=== PATIENT | female | born 1960 | race Caucasian/White ===

== ENCOUNTER → 2018-11-29 | Outpatient (CLI) | payer OTHER ==
--- NOTE | 2018-11-29 13:26 | KCIC ---
CHEST PA LATERAL History: Shortness of breath, cough Comparison: None. Findings: The cardiomediastinal silhouette is normal. Pulmonary vasculature is normal. The lungs are clear. No pleural effusion or pneumothorax is seen. There is no acute bone abnormality. Mild thickening of the minor fissure is present and nonspecific. Borderline pulmonary hyperinflation is present. IMPRESSION: No acute cardiopulmonary process. Electronically signed by: Mark Dillon MD (11/29/2018 1:23 PM) [facility]
== END | disposition home or self-care (01) ==
LOC: KCIC 12:35
PROVIDERS: ATTEND Internal Medicine Pulmonary Disease
DX: J44.9 Chronic obstructive pulmonary disease, unspecified (principal); J94.8 Other specified pleural conditions; J98.4 Other disorders of lung
CPT/HCPCS: 71046

== ENCOUNTER → 2018-12-18 | Outpatient (CLI) | payer MEDICARE, OTHER ==
[~2018-12-18] MED LIST: ALBU2.5V8 PO; AZIT250T6 PO; BACL10TA PO; CEFD300C PO; CETI10TA16 PO; DIAZ5TAB4 PO; FLUO40CA2 PO; FLUT16SP NS; FLUT1BLS10 INH; GABA600T7 PO; HYDR-52 PO; IPRA3AMP29 NEB; LACT1CAP19 PO; MIRT7.5T8 PO; PRED-220 PO; RANI150T2 PO; TIZA4TAB2 PO
--- NOTE | 2018-12-18 16:48 | KCIC ---
PQRS Compliance statement: One or more of the following individualized dose reduction techniques were utilized for this examination: 1. Automated exposure control. 2. Adjustment of the mA and/or kV according to patient size. 3. Use of iterative reconstruction technique. Indication:Smoker. Lung cancer screening. TECHNIQUE: Low-dose CT chest without IV contrast with multiplanar reformats. COMPARISON:None FINDINGS: Heart is normal in size. No pericardial or pleural effusion. No enlarged axillary, mediastinal adenopathy. Evaluation of hilar lymphadenopathy is limited due to lack of IV contrast. Mild diffuse emphysema. Scarring is seen along the right minor fissure. No pulmonary nodules. Visualized noncontrast sections through the liver, spleen, pancreas, adrenals and kidneys within normal limits. No suspicious bony lesion. Stable mild compression deformity of the midthoracic vertebral body. IMPRESSION: No pulmonary nodules. Lung RADS category 1: Negative. Continue low-dose CT chest screening. Mild emphysema. Electronically signed by: Srinivas Fuentes DO (12/18/2018 4:46 PM) [facility]
== END | disposition home or self-care (01) ==
LOC: KCIC CT 09:53
PROVIDERS: ATTEND Internal Medicine Pulmonary Disease
DX: Z12.2 Encounter for screening for malignant neoplasm of respiratory organs (principal); J43.9 Emphysema, unspecified; J98.4 Other disorders of lung; M43.8X4 Other specified deforming dorsopathies, thoracic region; F17.210 Nicotine dependence, cigarettes, uncomplicated
CPT/HCPCS: G0297

== ENCOUNTER 2018-12-31 00:26 | Inpatient (IN) | payer MEDICARE, OTHER ==
[~2018-12-31] VITALS: Ht 157.5 cm; Wt 68.9 kg
--- NOTE | 2018-12-31 00:52 | PHYS DOC ---
Adult General Chief Complaint Chief Complaint: SHORTNESS OF BREATH HPI HPI Patient is a 58 year old female with history of COPD on 3 L home oxygen with current smoking who presents via EMS with complaining of shortness of breath and cough. Patient complaining of increasing chronic shortness of breath for the last 3 days associated with productive cough with yellow sputum without fever and chills, chest pain, nausea and vomiting, sick contact. EMS reported that patient had O2 sat of low 70s at her home oxygen improved to 95 with starting CPAP. Patient had O2 sat of 98% at arrival to ER on CPAP. Review of Systems Review of Systems Constitutional: Denies fever or chills [] Eyes: Denies change in visual acuity, redness, or eye pain [] HENT: Denies nasal congestion or sore throat [] Respiratory: Reports cough and shortness of breath Cardiovascular: No additional information not addressed in HPI [] GI: Denies abdominal pain, nausea, vomiting, bloody stools or diarrhea [] : Denies dysuria or hematuria [] Musculoskeletal: Denies back pain or joint pain [] Integument: Denies rash or skin lesions [] Neurologic: Denies headache, focal weakness or sensory changes [] Endocrine: Denies polyuria or polydipsia [] All other systems were reviewed and found to be within normal limits, except as documented in this note. Current Medications Current Medications Physical Exam Physical Exam Constitutional: Well developed, well nourished, moderate distress, non-toxic appearance. [] HENT: Normocephalic, atraumatic. Eyes: PERRLA, EOMI, conjunctiva normal, no discharge. [] Neck: Normal range of motion, no tenderness, supple, no stridor. [] Cardiovascular:Heart rate regular rhythm, no murmur [] Lungs & Thorax: Acute respiratory distress with intercostal retraction or dyspnea, decrease of air movement Abdomen: Bowel sounds normal, soft, no tenderness, no masses, no pulsatile masses. [] Skin: Warm, dry, no erythema, no rash. [] Back: No tenderness, no CVA tenderness. [] Extremities: No tenderness, no cyanosis, no clubbing, ROM intact, no edema. [] Neurologic: Alert and oriented X 3, no focal deficits noted. [] Psychologic: Affect anxious, judgement normal, mood normal. [] Current Patient Data Lab Values Laboratory Tests Test 12/31/18 00:50 White Blood Count 17.7 x10^3/uL (4.0-11.0) H Red Blood Count 3.53 x10^6/uL (3.50-5.40) Hemoglobin 10.3 g/dL (12.0-15.5) L Hematocrit 31.9 % (36.0-47.0) L Mean Corpuscular Volume 91 fL (79-100) Mean Corpuscular Hemoglobin 29 pg (25-35) Mean Corpuscular Hemoglobin Concent 32 g/dL (31-37) Red Cell Distribution Width 14.3 % (11.5-14.5) Platelet Count 304 x10^3/uL (140-400) Neutrophils (%) (Auto) 82 % (31-73) H Lymphocytes (%) (Auto) 10 % (24-48) L Monocytes (%) (Auto) 6 % (0-9) Eosinophils (%) (Auto) 1 % (0-3) Basophils (%) (Auto) 1 % (0-3) Neutrophils # (Auto) 14.6 x10^3/uL (1.8-7.7) H Lymphocytes # (Auto) 1.8 x10^3/uL (1.0-4.8) Monocytes # (Auto) 1.0 x10^3/uL (0.0-1.1) Eosinophils # (Auto) 0.2 x10^3/uL (0.0-0.7) Basophils # (Auto) 0.2 x10^3/uL (0.0-0.2) Platelet Estimate Pending Sodium Level 140 mmol/L (136-145) Potassium Level 3.7 mmol/L (3.5-5.1) Chloride Level 102 mmol/L (98-107) Carbon Dioxide Level 35 mmol/L (21-32) H Anion Gap 3 (6-14) L Blood Urea Nitrogen 8 mg/dL (7-20) Creatinine 0.6 mg/dL (0.6-1.0) Estimated GFR (Cockcroft-Gault) 102.7 BUN/Creatinine Ratio 13 (6-20) Glucose Level 120 mg/dL (70-99) H Lactic Acid Level 0.7 mmol/L (0.4-2.0) Calcium Level 8.7 mg/dL (8.5-10.1) Magnesium Level 1.6 mg/dL (1.8-2.4) L Total Bilirubin 0.3 mg/dL (0.2-1.0) Aspartate Amino Transferase (AST) 21 U/L (15-37) Alanine Aminotransferase (ALT) 26 U/L (14-59) Alkaline Phosphatase 63 U/L (46-116) Creatine Kinase 55 U/L (26-192) Troponin I Quantitative < 0.017 ng/mL (0.000-0.055) CA-Orq-M-Type Natriuretic Peptide 3346 pg/mL (0-124) H Total Protein 6.3 g/dL (6.4-8.2) L Albumin 3.0 g/dL (3.4-5.0) L Albumin/Globulin Ratio 0.9 (1.0-1.7) L Laboratory Tests 12/31/18 00:50 Laboratory Tests 12/31/18 00:50 EKG EKG EKG interpreted by me. EKG at 0054 showed normal sinus rhythm at rate of 78, right toro axis, prolonged QT at 420, poor R-wave progress in anteroseptal leads, no acute ST and T-wave elevation. Radiology/Procedures Radiology/Procedures [][address] [place] [address] IMAGING REPORT Signed PATIENT: CARIDAD CALLES ACCOUNT: [id number] : 1960 LOCATION: [address] [place] [address] AGE: 58 SEX: F EXAM STATUS: ADM IN ORD. PHYSICIAN: VERÓNICA RODRIGUEZ MD REASON: shortness of breath PROCEDURE: PORTABLE CHEST 1V EXAM: CHEST ONE VIEW. HISTORY: Shortness of breath. COMPARISON: 11/21/2018. FINDINGS: A frontal view of the chest is obtained. Hyperinflation is consistent with chronic obstructive pulmonary disease. Linear opacities in the bases indicate atelectasis or mild pulmonary edema. There is no pneumothorax or pleural effusion. The heart is not enlarged. IMPRESSION: 1. Chronic obstructive pulmonary disease. Basilar atelectasis versus mild pulmonary edema. Electronically signed by: Gabi Basurto MD (12/31/2018 2:06 AM) [place] [id number] DICTATED and SIGNED BY: HARESH BASURTO MD DATE: 12/31/18 0206 Course & Med Decision Making Course & Med Decision Making Pertinent Labs and Imaging studies reviewed. (See chart for details) Evaluation of patient in ER showed 58-year-old female patient with history of COPD on home oxygen brought in by EMS respiratory distress and hypertension at 80s that improved with IV fluid. Patient was on CPAP with O2 sat of more than 98% and was changed to 3 L of nasal cannula with stable O2 sat more than 95%. Chest x-ray did not show infiltration. Patient had elevation of white count without elevation of lactic acid.Patient requiring admission for further evaluation and treatment. Discussed with Dr. Fuentes who is in agreement with admission. Discussed findings and plan with patient and family, who acknowledge understanding and agreement. Dragon Disclaimer Dragon Disclaimer This electronic medical record was generated, in whole or in part, using a voice recognition dictation system. Departure Departure Impression: Primary Impression: Acute respiratory distress Additional Impressions: COPD exacerbation Hypoxia Tobacco abuse Anemia Hypomagnesemia CHF (congestive heart failure) Hypotension Disposition: ADMITTED INPATIENT (at 0208) Admitting Physician: Elva Fuentes (accepted admission at 0207) Condition: IMPROVED Referrals: NO PCP (PCP) Critical Care Time Critical care time was 70 minutes exclusive of procedures. Problem Qualifiers Additional Impressions: Anemia Anemia type: unspecified type Qualified Codes: D64.9 - Anemia, unspecified CHF (congestive heart failure) Heart failure type: unspecified Heart failure chronicity: unspecified Qualified Codes: I50.9 - Heart failure, unspecified Hypotension Hypotension type: unspecified hypotension type Qualified Codes: I95.9 - Hypotension, unspecified VERÓNICA RODRIGUEZ MD Dec 31, 2018 00:52
[2018-12-31 01:01] LABS: BASO # 0.2 x10^3/uL (0.0-0.2); BASO % 1 % (0-3); EOS # 0.2 x10^3/uL (0.0-0.7); EOS % 1 % (0-3); HEMATOCRIT 31.9 % (36.0-47.0); HEMOGLOBIN 10.3 g/dL (12.0-15.5); LYMPH # 1.8 x10^3/uL (1.0-4.8); LYMPH % 10 % (24-48); MEAN CORPUSCULAR HEMOGLOBIN 29 pg (25-35); MEAN CORPUSCULAR HGB CONC 32 g/dL (31-37); MEAN CORPUSCULAR VOLUME 91 fL (79-100); MONO % 6 % (0-9); NEUT # 14.6 x10^3/uL (1.8-7.7); NEUT % 82 % (31-73); PLATELET COUNT 304 x10^3/uL (140-400); RED BLOOD COUNT 3.53 x10^6/uL (3.50-5.40); RED CELL DISTRIBUTION WIDTH 14.3 % (11.5-14.5); WHITE BLOOD COUNT 17.7 x10^3/uL (4.0-11.0)
[2018-12-31 01:21] LABS: CALCIUM 8.7 mg/dL (8.5-10.1); CREATININE 0.6 mg/dL (0.6-1.0); GFR 102.7; POTASSIUM 3.7 mmol/L (3.5-5.1)
[2018-12-31 01:27] LABS: ALBUMIN/GLOBULIN RATIO 0.9 (1.0-1.7); MAGNESIUM 1.6 mg/dL (1.8-2.4); TOTAL BILIRUBIN 0.3 mg/dL (0.2-1.0); TOTAL PROTEIN 6.3 g/dL (6.4-8.2)
[2018-12-31] MEDS ORDERED: VANCOMYCIN 1GM IVPB FOR OMNI 250 ML IV ONE (01:30)
[2018-12-31] MEDS ORDERED: methylPREDNISolone SOD SUCC PF 125 MG/2 ML VIAL. IV ONE (01:30)
[2018-12-31] MEDS ORDERED: IV NORMAL SALINE 1000ML BAG 1,000 ML IV SCH (01:30)
[2018-12-31] MEDS ORDERED: IPRATRPIUM/ALBUTEROL 0.5/2.5MG 3 ML NEBU. NEB ONE (01:30)
[2018-12-31] MEDS ORDERED: PIPERACILLIN/TAZOBACTAM 3.375 GM in IV NORMAL SALINE 50ML 50 ML IV ONE (02:00)
[2018-12-31] MEDS ORDERED: IV NORMAL SALINE 1000ML BAG 1,000 ML IV ONE (02:00)
[2018-12-31] MEDS: MAGNESIUM OXIDE 400 MG TABLET PO SCH ×3 (02:01→10:31)
--- NOTE | 2018-12-31 02:09 | RAD ---
EXAM: CHEST ONE VIEW. HISTORY: Shortness of breath. COMPARISON: 11/21/2018. FINDINGS: A frontal view of the chest is obtained. Hyperinflation is consistent with chronic obstructive pulmonary disease. Linear opacities in the bases indicate atelectasis or mild pulmonary edema. There is no pneumothorax or pleural effusion. The heart is not enlarged. IMPRESSION: 1. Chronic obstructive pulmonary disease. Basilar atelectasis versus mild pulmonary edema. Electronically signed by: Gabi Basurto MD (12/31/2018 2:06 AM) [facility]
[2018-12-31 02:15] VITALS: BP 122/64
[2018-12-31] MEDS ORDERED: HYDR-52 PO (02:55)
[2018-12-31] MEDS ORDERED: TIZA4TAB2 PO (02:55)
[2018-12-31] MEDS ORDERED: RANI150T2 PO (02:55)
[2018-12-31] MEDS ORDERED: MIRT7.5T8 PO (02:55)
[2018-12-31] MEDS ORDERED: FLUO40CA2 PO (02:55)
[2018-12-31] MEDS ORDERED: CETI10TA16 PO (02:55)
[2018-12-31] MEDS ORDERED: GABA600T7 PO (02:55)
[2018-12-31] MEDS ORDERED: BACL10TA PO (02:55)
[2018-12-31] MEDS ORDERED: FLUT16SP NS (02:55)
[2018-12-31] MEDS ORDERED: AZIT250T6 PO (02:55)
[2018-12-31] MEDS ORDERED: DIAZ5TAB4 PO (02:55)
[2018-12-31] MEDS ORDERED: ALBU2.5V8 PO (02:55)
[2018-12-31 03:07] LABS: % BANDS 3 % (0-9); % EOS 1 % (0-5); % LYMPHS 10 % (24-48); % MONOS 4 % (0-10); % SEGS 82 % (35-66); PLT ESTIMATE ADEQUATE (ADEQUATE)
[2018-12-31] MEDS ORDERED: FLUT1BLS10 INH (03:18)
[2018-12-31] MEDS: IV NORMAL SALINE 1000ML BAG 1,000 ML IV SCH ×3 (03:34→21:18)
[2018-12-31 07:00] VITALS: BP 143/83
[2018-12-31] MEDS ORDERED: tiZANidine 4 MG TABLET. PO PRN (09:00)
[2018-12-31] MEDS ORDERED: ACETAMINOPHEN 325 MG TABLET. PO PRN (09:00)
[2018-12-31] MEDS ORDERED: AZITHROMYCIN 250 MG TABLET. PO SCH (09:00)
[2018-12-31] MEDS ORDERED: NON FORMULARY ITEM (Baclofen 10 MG) PO PRN (09:00)
[2018-12-31] MEDS ORDERED: fentaNYL PF VIAL 100 MCG/2 ML VIAL IM ONE (10:15)
--- NOTE | 2018-12-31 10:21 | PDOC ---
Provider Note Provider Note dictated a/c resp fail ae of copd acute bronchitis see orders STEFAN MOURA MD Dec 31, 2018 10:20
[2018-12-31] MEDS: FLUTICASONE 50MCG/NASAL SPRAY 16GM BOTTLE. NS SCH (10:26)
[2018-12-31] MEDS: FLUoxetine HCL 20 MG CAPSULE PO SCH (10:27)
[2018-12-31] MEDS: methylPREDNISolone SOD SUCC PF 40 MG/ML VIAL. IV SCH ×2 (10:30→15:02)
[2018-12-31] MEDS: HYDROcodone/APAP 10/325 1 TAB TABLET PO PRN ×2 (10:30→21:20)
[2018-12-31] MEDS: diazePAM 5 MG TABLET PO PRN ×2 (10:30→21:21)
[2018-12-31] MEDS: GABAPENTIN 300 MG CAPSULE. PO SCH ×3 (10:30→21:19)
[2018-12-31] MEDS: FAMOTIDINE 20 MG TABLET. PO SCH ×2 (10:31→21:21)
--- NOTE | 2018-12-31 10:50 | PDOC ---
Provider Note Provider Note Patient seen. History and Physical dictated. See dictation#[id number] REYNALDO ESPITIA MD Dec 31, 2018 10:50
[2018-12-31 11:00] VITALS: BP 135/77
--- NOTE | 2018-12-31 11:21 | CONS ---
DATE OF CONSULTATION: 12/31/2018 I was asked to see this 58-year-old lady for acute on chronic respiratory failure. HISTORY OF PRESENT ILLNESS: She does have history of [id number] smoking. Now, she smokes occasionally a few cigarettes per day. She is on oxygen 2 liters per minute via nasal cannula continuously. She has had increased cough, shortness of breath, yellow sputum production, fever, chills for the past few days. She has had wheezing and runny nose and postnasal drip. She denies gastroesophageal reflux symptoms. She denies chest pain. She was brought to the Emergency Room via [facility]. PAST MEDICAL HISTORY: COPD and chronic respiratory failure. She was seen by Dr. Brand recently. SOCIAL HISTORY: History of [id number] smoking. Continues to smoke a few cigarettes per day. ALLERGIES: No known drug allergies. MEDICATIONS: Currently, she is on Zyrtec, Remeron, Valium, azithromycin, Rocephin, Solu-Medrol 60 mg IV b.i.d., Pepcid, gabapentin, Prozac. FAMILY HISTORY: No history of lung disease in the family. REVIEW OF SYSTEMS: As mentioned above, other systems otherwise negative. PHYSICAL EXAMINATION: VITAL SIGNS: Her O2 saturation on 2 liters of oxygen is 98%, respiratory rate 16, heart rate 97, blood pressure 143/83, temperature 97.6. HEENT: Normocephalic, atraumatic. Pupils equal, round, reactive to light. Throat is clear. Nose is clear. NECK: There is no JVD, lymphadenopathy or thyromegaly. CARDIOVASCULAR: Regular rate and rhythm. PMI is nondisplaced. CHEST: Inspection is normal. LUNGS: End expiratory wheezing. Percussion is within normal limit. ABDOMEN: Soft. Bowel sounds are good. There is no mass. EXTREMITIES: There is no edema. LYMPHATICS: There is no lymphadenopathy. NEUROLOGIC: Alert and oriented. SKIN: Chronic changes. I reviewed the following lab data: Chest x-ray does not show infiltrate. WBC 17.7, hemoglobin 10.3, platelets 304. Sodium 140, potassium 3.7, chloride 102, CO2 of 35, glucose 120, BUN 8, creatinine 0.6. Troponin less than 0.017. BNP 3346. Lactic acid 0.7. IMPRESSION: 1. Acute on chronic respiratory failure, multifactorial in etiology, including acute exacerbation of chronic obstructive pulmonary disease, acute bronchitis versus others. 2. Acute exacerbation of chronic obstructive pulmonary disease. 3. Acute bronchitis. 4. Tobacco habituation. 5. Elevated BNP. PLAN AND RECOMMENDATIONS: 1. Titrate FiO2 to keep O2 saturation 92%. 2. Start bronchodilator. 3. Continue Solu-Medrol. 4. Continue Rocephin and azithromycin. 5. Continue Pulmicort. 6. I had a long discussion with her regarding smoking cessation. I have advised her to stop smoking forever. 7. Her BNP is elevated. I do recommend an echocardiogram. Thank you very much for allowing me to participate in care of this very nice lady. STEFAN MOURA M.D. : [place] JOB#: [id number] / [id number]
--- NOTE | 2018-12-31 11:21 | EKG ---
[facility] [address] [place] [address] Test Date: 2018-12-31 Test Time: 00:54:47 Pat Name: CARIDAD CALLES Department: Room: [facility] Gender: F [employer]: : 1960 Requested By: VERÓNICA RODRIGUEZ Order Number: [id number] Reading MD: Julio Brizuela MD Measurements Intervals [place] Rate: 78 P: 75 VA: 142 QRS: 98 QRSD: 96 T: 50 QT: 420 QTc: 482 Interpretive Statements SINUS RHYTHM MILD RIGHT AXIS Electronically Signed On 01-09-2019 10:28:04 CDT by Julio Brizuela MD
[2018-12-31 12:00] LABS: INFLUENZA A PATIENT NEGATIVE (NEGATIVE); INFLUENZA B PATIENT NEGATIVE (NEGATIVE)
[2018-12-31] MEDS: ALBUTEROL SULFATE 2.5 MG/3 ML NEBU. NEB SCH ×4 (12:00→21:17)
[2018-12-31] MEDS: BUDESONIDE 0.5 MG/2 ML NEBU. NEB SCH ×2 (12:05→20:25)
[2018-12-31] MEDS: cefTRIAXone IV Push 1 GM VIAL. IVP SCH (12:39)
[2018-12-31] MEDS: AZITHROMYCIN 500 MG in IV NORMAL SALINE 250ML 250 ML IV SCH (12:46)
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
[2018-12-31 15:00] VITALS: BP 109/52
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
[2018-12-31 19:36] VITALS: BP 122/55
[2018-12-31] MEDS: MIRTAZAPINE 7.5 MG TABLET. PO SCH (21:19)
[2018-12-31] MEDS: CETIRIZINE HCL 10 MG TABLET. PO SCH (21:21)
[2018-12-31 23:29] VITALS: BP 112/59
[2019-01-01] MEDS: HYDROcodone/APAP 10/325 1 TAB TABLET PO PRN ×3 (03:00→18:29)
[2019-01-01 03:28] VITALS: BP 101/44
[2019-01-01 04:15] LABS: BASO # 0.1 x10^3/uL (0.0-0.2); BASO % 1 % (0-3); EOS % 0 % (0-3); HEMATOCRIT 31.2 % (36.0-47.0); LYMPH # 0.7 x10^3/uL (1.0-4.8); LYMPH % 5 % (24-48); MEAN CORPUSCULAR HEMOGLOBIN 29 pg (25-35); MEAN CORPUSCULAR HGB CONC 32 g/dL (31-37); MEAN CORPUSCULAR VOLUME 90 fL (79-100); MONO # 0.7 x10^3/uL (0.0-1.1); MONO % 5 % (0-9); NEUT # 13.6 x10^3/uL (1.8-7.7); NEUT % 90 % (31-73); PLATELET COUNT 303 x10^3/uL (140-400); RED BLOOD COUNT 3.46 x10^6/uL (3.50-5.40); RED CELL DISTRIBUTION WIDTH 14.6 % (11.5-14.5); WHITE BLOOD COUNT 15.2 x10^3/uL (4.0-11.0)
[2019-01-01 04:41] LABS: ALBUMIN 2.5 g/dL (3.4-5.0); ALBUMIN/GLOBULIN RATIO 0.7 (1.0-1.7); CALCIUM 8.5 mg/dL (8.5-10.1); CREATININE 0.4 mg/dL (0.6-1.0); GFR 163.9; MAGNESIUM 1.9 mg/dL (1.8-2.4); POTASSIUM 4.3 mmol/L (3.5-5.1); TOTAL BILIRUBIN 0.2 mg/dL (0.2-1.0)
[2019-01-01 07:47] VITALS: BP 125/65
[2019-01-01] MEDS: ALBUTEROL SULFATE 2.5 MG/3 ML NEBU. NEB SCH ×3 (07:47→15:54)
[2019-01-01] MEDS: BUDESONIDE 0.5 MG/2 ML NEBU. NEB SCH ×2 (07:48→20:52)
[2019-01-01] MEDS: MAGNESIUM OXIDE 400 MG TABLET PO SCH (08:35)
[2019-01-01] MEDS: FAMOTIDINE 20 MG TABLET. PO SCH ×2 (08:35→21:06)
[2019-01-01] MEDS: FLUoxetine HCL 20 MG CAPSULE PO SCH (08:35)
[2019-01-01] MEDS: GABAPENTIN 300 MG CAPSULE. PO SCH ×3 (08:35→21:06)
[2019-01-01] MEDS: methylPREDNISolone SOD SUCC PF 40 MG/ML VIAL. IV SCH ×2 (08:36→15:23)
[2019-01-01] MEDS: FLUTICASONE 50MCG/NASAL SPRAY 16GM BOTTLE. NS SCH (08:36)
[2019-01-01] MEDS: AZITHROMYCIN 500 MG in IV NORMAL SALINE 250ML 250 ML IV SCH (08:37)
[2019-01-01] MEDS: cefTRIAXone IV Push 1 GM VIAL. IVP SCH (08:53)
--- NOTE | 2019-01-01 09:46 | PDOC ---
IM PROGRESS NOTES- Subjective Subjective Hasw cough,congestion,neck pain,bilateral hip pain. Objective Vitals/I&O Vital Signs Date Time Temp Pulse Resp B/P (MAP) Pulse Ox O2 Delivery O2 Flow Rate FiO2 01/01/19 07:49 97 Nasal Cannula 2.0 01/01/19 07:47 98.0 99 22 125/65 (85) 98.0 I & O 12/31/18 12/31/18 01/01/19 15:00 23:00 07:00 Intake Total 120 ml 390 ml 1240 ml Balance 120 ml 390 ml 1240 ml Physical Exam Physical Exam General appearance - alert,ill appearing, and in mild distress and oriented to person, place, and time Mental Status - alert, oriented to person, place, and time, affect appropriate to mood Head - normal Chest - few bilateral wheezes Heart - S1 and S2 normal Abdomen - soft, non tender Neurological - alert and oriented Musculoskeletal - joint pains Extremities - no pedal edema Skin - warm and dry Labs Laboratory Tests Test 12/31/18 11:00 01/01/19 03:15 Influenza Type A Antigen Negative (NEGATIVE) Influenza Type B Antigen Negative (NEGATIVE) White Blood Count 15.2 x10^3/uL (4.0-11.0) H Red Blood Count 3.46 x10^6/uL (3.50-5.40) L Hemoglobin 10.0 g/dL (12.0-15.5) L Hematocrit 31.2 % (36.0-47.0) L Mean Corpuscular Volume 90 fL (79-100) Mean Corpuscular Hemoglobin 29 pg (25-35) Mean Corpuscular Hemoglobin Concent 32 g/dL (31-37) Red Cell Distribution Width 14.6 % (11.5-14.5) H Platelet Count 303 x10^3/uL (140-400) Neutrophils (%) (Auto) 90 % (31-73) H Lymphocytes (%) (Auto) 5 % (24-48) L Monocytes (%) (Auto) 5 % (0-9) Eosinophils (%) (Auto) 0 % (0-3) Basophils (%) (Auto) 1 % (0-3) Neutrophils # (Auto) 13.6 x10^3/uL (1.8-7.7) H Lymphocytes # (Auto) 0.7 x10^3/uL (1.0-4.8) L Monocytes # (Auto) 0.7 x10^3/uL (0.0-1.1) Eosinophils # (Auto) 0.0 x10^3/uL (0.0-0.7) Basophils # (Auto) 0.1 x10^3/uL (0.0-0.2) Sodium Level 141 mmol/L (136-145) Potassium Level 4.3 mmol/L (3.5-5.1) Chloride Level 106 mmol/L (98-107) Carbon Dioxide Level 34 mmol/L (21-32) H Anion Gap 1 (6-14) L Blood Urea Nitrogen 9 mg/dL (7-20) Creatinine 0.4 mg/dL (0.6-1.0) L Estimated GFR (Cockcroft-Gault) 163.9 BUN/Creatinine Ratio 23 (6-20) H Glucose Level 116 mg/dL (70-99) H Calcium Level 8.5 mg/dL (8.5-10.1) Magnesium Level 1.9 mg/dL (1.8-2.4) Total Bilirubin 0.2 mg/dL (0.2-1.0) Aspartate Amino Transferase (AST) 18 U/L (15-37) Alanine Aminotransferase (ALT) 22 U/L (14-59) Alkaline Phosphatase 58 U/L (46-116) Troponin I Quantitative < 0.017 ng/mL (0.000-0.055) Total Protein 6.0 g/dL (6.4-8.2) L Albumin 2.5 g/dL (3.4-5.0) L Albumin/Globulin Ratio 0.7 (1.0-1.7) L Laboratory Tests 01/01/19 03:15 Laboratory Tests 01/01/19 03:15 Meds Current Medications Medications (Trade) Dose Ordered Sig/Jorge Luis Route PRN Reason Start Time Stop Time Status Last Admin Dose Admin Cetirizine HCl (ZyrTEC) 10 mg HS PO 12/31/18 21:00 12/31/18 21:21 Mirtazapine (Remeron) 7.5 mg QHS PO 12/31/18 21:00 12/31/18 21:19 Budesonide (Pulmicort) 0.5 mg RTBID NEB 12/31/18 10:00 01/01/19 07:48 Ceftriaxone Sodium (Rocephin) 1 gm Q24H IVP 12/31/18 10:00 01/01/19 08:53 Azithromycin 500 mg/Sodium Chloride 250 ml @ 250 mls/hr DAILY IV 12/31/18 10:00 01/01/19 08:37 Diazepam (Valium) 5 mg PRN BID PRN PO ANXIETY / AGITATION 12/31/18 10:00 12/31/18 21:21 Fentanyl Citrate (Fentanyl 2ml Vial) 50 mcg 1X ONCE IM 12/31/18 10:15 12/31/18 10:16 DC 12/31/18 10:34 Assessment Assessment 1. Acute exacerbation of chronic obstructive pulmonary disease. 2. Acute bronchitis. 3. Acute hypotension. 4. Acute on chronic hypoxic respiratory failure. 5. Anemia. 6. Possible congestive heart failure with elevated BNP. 7. Anxiety. 8. Depression. 9. Chronic pain. 10. History of neck surgery and right hip surgery. PLAN: Consult Dr. Mercer for pulmonary evaluation and management and Dr. Costa for cardiology evaluation and management. She will need echocardiogram. I will start her on IV Solu-Medrol, start her on IV Rocephin and Zithromax. Continue breathing treatment. Her blood pressure is stable, so I will not add more fluids, but I will also not give her any diuretic at this time. Continue home medications. She is complaining a lot of pain. Discussed with staff. For details, please refer to the orders. Acute bronchitis- Influenza screen negative Anxiety Plan Plan For more details regarding further plans, please refer to the orders. REYNALDO ESPITIA MD Jan 01, 2019 09:46
[2019-01-01 11:30] VITALS: BP 149/86
[2019-01-01] MEDS: diazePAM 5 MG TABLET PO PRN (11:52)
--- NOTE | 2019-01-01 13:11 | PDOC ---
PULMONARY PROGRESS NOTES Subjective still dc Vitals Vital Signs Date Time Temp Pulse Resp B/P (MAP) Pulse Ox O2 Delivery O2 Flow Rate FiO2 01/01/19 11:33 96 Nasal Cannula 2.0 01/01/19 11:30 99.0 89 18 149/86 (107) 99.0 General: Alert, No acute distress Lungs: Crackles (bases) Cardiovascular: S1 Abdomen: Soft, Other (obese) Neuro Exam: Alert Extremities: No Edema Skin: Warm Labs Laboratory Tests Test 12/31/18 00:50 12/31/18 11:00 01/01/19 03:15 White Blood Count 17.7 x10^3/uL (4.0-11.0) 15.2 x10^3/uL (4.0-11.0) Red Blood Count 3.53 x10^6/uL (3.50-5.40) 3.46 x10^6/uL (3.50-5.40) Hemoglobin 10.3 g/dL (12.0-15.5) 10.0 g/dL (12.0-15.5) Hematocrit 31.9 % (36.0-47.0) 31.2 % (36.0-47.0) Mean Corpuscular Volume 91 fL (79-100) 90 fL (79-100) Mean Corpuscular Hemoglobin 29 pg (25-35) 29 pg (25-35) Mean Corpuscular Hemoglobin Concent 32 g/dL (31-37) 32 g/dL (31-37) Red Cell Distribution Width 14.3 % (11.5-14.5) 14.6 % (11.5-14.5) Platelet Count 304 x10^3/uL (140-400) 303 x10^3/uL (140-400) Neutrophils (%) (Auto) 82 % (31-73) 90 % (31-73) Lymphocytes (%) (Auto) 10 % (24-48) 5 % (24-48) Monocytes (%) (Auto) 6 % (0-9) 5 % (0-9) Eosinophils (%) (Auto) 1 % (0-3) 0 % (0-3) Basophils (%) (Auto) 1 % (0-3) 1 % (0-3) Neutrophils # (Auto) 14.6 x10^3/uL (1.8-7.7) 13.6 x10^3/uL (1.8-7.7) Lymphocytes # (Auto) 1.8 x10^3/uL (1.0-4.8) 0.7 x10^3/uL (1.0-4.8) Monocytes # (Auto) 1.0 x10^3/uL (0.0-1.1) 0.7 x10^3/uL (0.0-1.1) Eosinophils # (Auto) 0.2 x10^3/uL (0.0-0.7) 0.0 x10^3/uL (0.0-0.7) Basophils # (Auto) 0.2 x10^3/uL (0.0-0.2) 0.1 x10^3/uL (0.0-0.2) Segmented Neutrophils % 82 % (35-66) Band Neutrophils % 3 % (0-9) Lymphocytes % 10 % (24-48) Monocytes % 4 % (0-10) Eosinophils % 1 % (0-5) Platelet Estimate Adequate (ADEQUATE) Sodium Level 140 mmol/L (136-145) 141 mmol/L (136-145) Potassium Level 3.7 mmol/L (3.5-5.1) 4.3 mmol/L (3.5-5.1) Chloride Level 102 mmol/L (98-107) 106 mmol/L (98-107) Carbon Dioxide Level 35 mmol/L (21-32) 34 mmol/L (21-32) Anion Gap 3 (6-14) 1 (6-14) Blood Urea Nitrogen 8 mg/dL (7-20) 9 mg/dL (7-20) Creatinine 0.6 mg/dL (0.6-1.0) 0.4 mg/dL (0.6-1.0) Estimated GFR (Cockcroft-Gault) 102.7 163.9 BUN/Creatinine Ratio 13 (6-20) 23 (6-20) Glucose Level 120 mg/dL (70-99) 116 mg/dL (70-99) Lactic Acid Level 0.7 mmol/L (0.4-2.0) Calcium Level 8.7 mg/dL (8.5-10.1) 8.5 mg/dL (8.5-10.1) Magnesium Level 1.6 mg/dL (1.8-2.4) 1.9 mg/dL (1.8-2.4) Total Bilirubin 0.3 mg/dL (0.2-1.0) 0.2 mg/dL (0.2-1.0) Aspartate Amino Transf (AST/SGOT) 21 U/L (15-37) 18 U/L (15-37) Alanine Aminotransferase (ALT/SGPT) 26 U/L (14-59) 22 U/L (14-59) Alkaline Phosphatase 63 U/L (46-116) 58 U/L (46-116) Creatine Kinase 55 U/L (26-192) Troponin I Quantitative < 0.017 ng/mL (0.000-0.055) < 0.017 ng/mL (0.000-0.055) IC-Jzq-D-Type Natriuretic Peptide 3346 pg/mL (0-124) Total Protein 6.3 g/dL (6.4-8.2) 6.0 g/dL (6.4-8.2) Albumin 3.0 g/dL (3.4-5.0) 2.5 g/dL (3.4-5.0) Albumin/Globulin Ratio 0.9 (1.0-1.7) 0.7 (1.0-1.7) Influenza Type A Antigen Negative (NEGATIVE) Influenza Type B Antigen Negative (NEGATIVE) Laboratory Tests Test 01/01/19 03:15 White Blood Count 15.2 x10^3/uL (4.0-11.0) Red Blood Count 3.46 x10^6/uL (3.50-5.40) Hemoglobin 10.0 g/dL (12.0-15.5) Hematocrit 31.2 % (36.0-47.0) Mean Corpuscular Volume 90 fL (79-100) Mean Corpuscular Hemoglobin 29 pg (25-35) Mean Corpuscular Hemoglobin Concent 32 g/dL (31-37) Red Cell Distribution Width 14.6 % (11.5-14.5) Platelet Count 303 x10^3/uL (140-400) Neutrophils (%) (Auto) 90 % (31-73) Lymphocytes (%) (Auto) 5 % (24-48) Monocytes (%) (Auto) 5 % (0-9) Eosinophils (%) (Auto) 0 % (0-3) Basophils (%) (Auto) 1 % (0-3) Neutrophils # (Auto) 13.6 x10^3/uL (1.8-7.7) Lymphocytes # (Auto) 0.7 x10^3/uL (1.0-4.8) Monocytes # (Auto) 0.7 x10^3/uL (0.0-1.1) Eosinophils # (Auto) 0.0 x10^3/uL (0.0-0.7) Basophils # (Auto) 0.1 x10^3/uL (0.0-0.2) Sodium Level 141 mmol/L (136-145) Potassium Level 4.3 mmol/L (3.5-5.1) Chloride Level 106 mmol/L (98-107) Carbon Dioxide Level 34 mmol/L (21-32) Anion Gap 1 (6-14) Blood Urea Nitrogen 9 mg/dL (7-20) Creatinine 0.4 mg/dL (0.6-1.0) Estimated GFR (Cockcroft-Gault) 163.9 BUN/Creatinine Ratio 23 (6-20) Glucose Level 116 mg/dL (70-99) Calcium Level 8.5 mg/dL (8.5-10.1) Magnesium Level 1.9 mg/dL (1.8-2.4) Total Bilirubin 0.2 mg/dL (0.2-1.0) Aspartate Amino Transf (AST/SGOT) 18 U/L (15-37) Alanine Aminotransferase (ALT/SGPT) 22 U/L (14-59) Alkaline Phosphatase 58 U/L (46-116) Troponin I Quantitative < 0.017 ng/mL (0.000-0.055) Total Protein 6.0 g/dL (6.4-8.2) Albumin 2.5 g/dL (3.4-5.0) Albumin/Globulin Ratio 0.7 (1.0-1.7) Medications Active Scripts Medications Dose Route/Sig Max Daily Dose Days Date Category [place] 500-50 [place] (Fluticasone Propion/Salmeterol) 1 Each Blst.w.dev 1 Inh INH BID 12/31/18 Reported Proair Hfa (Albuterol Sulfate) 8.5 Gm Hfa.aer.ad 2 Puff PO QID 12/31/18 Reported Diazepam 5 Mg Tablet 1 Tab PO BID PRN 12/31/18 Reported Azithromycin Tablet (Azithromycin) 250 Mg Tablet 1 Tab PO DAILY 12/31/18 Reported Fluoxetine Hcl 40 Mg Capsule 1 Tab PO DAILY 12/31/18 Reported Tizanidine Hcl 4 Mg Tablet 1 Tab PO TID PRN 12/31/18 Reported Cetirizine Hcl 10 Mg Tablet 1 Tab PO HS 12/31/18 Reported Mirtazapine 7.5 Mg Tablet 1 Tab PO DAILY 12/31/18 Reported Ranitidine Hcl 150 Mg Tablet 150 Mg PO BID 12/31/18 Reported Hydrocodone-Acetamin 10-325 mg (Hydrocodone/Acetaminophen) 1 Each Tablet 1 Tab PO Q6HRS 12/31/18 Reported Fluticasone Propionate Nasal [place] (Fluticasone Propionate) 16 Gm [place].susp 1 Puff NS DAILY 12/31/18 Reported Gabapentin 600 Mg Tablet 600 Mg PO TID 12/31/18 Reported Baclofen 10 Mg Tablet 10 Mg PO TID PRN 12/31/18 Reported Impression . 1. Acute on chronic respiratory failure, multifactorial in etiology, including acute exacerbation of chronic obstructive pulmonary disease, acute bronchitis versus , diastolic HF 2. Acute exacerbation of chronic obstructive pulmonary disease. 3. Acute bronchitis. 4. Tobacco habituation. 5. Elevated BNP./ abn cxr, suspect mild CHF Plan . PLAN AND RECOMMENDATIONS: 1. Titrate FiO2 to keep O2 saturation 92%. 2. bronchodilator. 3. Continue Solu-Medrol. 4. Continue Rocephin and azithromycin. 5. Continue Pulmicort. 6. I had a long discussion with her regarding smoking cessation. I have advised her to stop smoking forever. 7. Her BNP is elevated. DD on echocardiogram. will try lasix today SON MATHIS MD Jan 01, 2019 13:11
[2019-01-01] MEDS ORDERED: FUROSEMIDE 40 MG/4 ML VIAL. IVP ONE (13:15)
--- NOTE | 2019-01-01 13:40 | PDOC ---
CARDIO Progress Notes Date and Time Date of Service 01/01/19 Time of Evaluation 1310 Subjective Subjective: No Chest Pain, No Palpitations, No Dizziness, Other (breathing improved ) Vitals Vitals Vital Signs Date Time Temp Pulse Resp B/P (MAP) Pulse Ox O2 Delivery O2 Flow Rate FiO2 01/01/19 11:33 96 Nasal Cannula 2.0 01/01/19 11:30 99.0 89 18 149/86 (107) 99.0 Weight Weight [ ] Input and Output Intake and Output Intake and Output 01/01/19 07:00 Intake Total 1750 ml Balance 1750 ml Intake Oral 1750 ml # Voids 6 # Bowel Movements 3 Laboratory Labs Laboratory Tests Test 01/01/19 03:15 White Blood Count 15.2 x10^3/uL (4.0-11.0) Red Blood Count 3.46 x10^6/uL (3.50-5.40) Hemoglobin 10.0 g/dL (12.0-15.5) Hematocrit 31.2 % (36.0-47.0) Mean Corpuscular Volume 90 fL (79-100) Mean Corpuscular Hemoglobin 29 pg (25-35) Mean Corpuscular Hemoglobin Concent 32 g/dL (31-37) Red Cell Distribution Width 14.6 % (11.5-14.5) Platelet Count 303 x10^3/uL (140-400) Neutrophils (%) (Auto) 90 % (31-73) Lymphocytes (%) (Auto) 5 % (24-48) Monocytes (%) (Auto) 5 % (0-9) Eosinophils (%) (Auto) 0 % (0-3) Basophils (%) (Auto) 1 % (0-3) Neutrophils # (Auto) 13.6 x10^3/uL (1.8-7.7) Lymphocytes # (Auto) 0.7 x10^3/uL (1.0-4.8) Monocytes # (Auto) 0.7 x10^3/uL (0.0-1.1) Eosinophils # (Auto) 0.0 x10^3/uL (0.0-0.7) Basophils # (Auto) 0.1 x10^3/uL (0.0-0.2) Sodium Level 141 mmol/L (136-145) Potassium Level 4.3 mmol/L (3.5-5.1) Chloride Level 106 mmol/L (98-107) Carbon Dioxide Level 34 mmol/L (21-32) Anion Gap 1 (6-14) Blood Urea Nitrogen 9 mg/dL (7-20) Creatinine 0.4 mg/dL (0.6-1.0) Estimated GFR (Cockcroft-Gault) 163.9 BUN/Creatinine Ratio 23 (6-20) Glucose Level 116 mg/dL (70-99) Calcium Level 8.5 mg/dL (8.5-10.1) Magnesium Level 1.9 mg/dL (1.8-2.4) Total Bilirubin 0.2 mg/dL (0.2-1.0) Aspartate Amino Transf (AST/SGOT) 18 U/L (15-37) Alanine Aminotransferase (ALT/SGPT) 22 U/L (14-59) Alkaline Phosphatase 58 U/L (46-116) Troponin I Quantitative < 0.017 ng/mL (0.000-0.055) Total Protein 6.0 g/dL (6.4-8.2) Albumin 2.5 g/dL (3.4-5.0) Albumin/Globulin Ratio 0.7 (1.0-1.7) Microbiology Micro Microbiology 12/31/18 Blood Culture - Preliminary, Resulted NO GROWTH AFTER 1 DAY Physical Exam HEENT: Neck Supple W Full Motion Chest: Symmetric LUNGS: Other (diminished bases) Heart: S1S2, RRR Abdomen: Soft N/T Extremities: No Edema Neurology: alert, oriented, follow commands Assessment Assessment 1. Acute on chronic respiratory failure, multifactorial with AECOPD, acute CHF. O2 dependent 2. Mild acute diastolic HF; Echo showed preserved LV systolic function with an EF of 50-55% 3. Leukocytosis 4. Anxiety 5. Tobaccoism; discussed/encouraged cessation Recommendations Mild diuresis Lung optimization as per pulmonary Supportive care STEPHANIE ANN APRN Jan 01, 2019 13:40
[2019-01-01 15:00] VITALS: BP 126/78
[2019-01-01 19:35] VITALS: BP 128/62
[2019-01-01] MEDS: CETIRIZINE HCL 10 MG TABLET. PO SCH (21:06)
[2019-01-01] MEDS: MIRTAZAPINE 7.5 MG TABLET. PO SCH (21:06)
[2019-01-01] MEDS: LACTOBACILLUS RHAMNOSUS GG 1 CAPSULE. PO SCH (21:06)
[2019-01-01 23:41] VITALS: BP 118/56
[2019-01-02 03:16] VITALS: BP 140/64
[2019-01-02 05:06] LABS: CALCIUM 9.2 mg/dL (8.5-10.1); CREATININE 0.5 mg/dL (0.6-1.0); GFR 126.7; POTASSIUM 4.1 mmol/L (3.5-5.1)
[2019-01-02 05:09] LABS: CHOLESTEROL/HDL RATIO 2.3
[2019-01-02] MEDS: ALBUTEROL SULFATE 2.5 MG/3 ML NEBU. NEB SCH ×4 (07:17→20:06)
[2019-01-02] MEDS: BUDESONIDE 0.5 MG/2 ML NEBU. NEB SCH ×2 (07:17→20:06)
[2019-01-02 07:40] VITALS: BP 143/71
[2019-01-02] MEDS: HYDROcodone/APAP 10/325 1 TAB TABLET PO PRN ×3 (08:33→21:29)
[2019-01-02] MEDS: GABAPENTIN 300 MG CAPSULE. PO SCH ×3 (08:34→20:02)
[2019-01-02] MEDS: FAMOTIDINE 20 MG TABLET. PO SCH ×2 (08:34→20:02)
[2019-01-02] MEDS: FLUoxetine HCL 20 MG CAPSULE PO SCH (08:35)
[2019-01-02] MEDS: FLUTICASONE 50MCG/NASAL SPRAY 16GM BOTTLE. NS SCH (08:35)
[2019-01-02] MEDS: ASPIRIN ENTERIC COATED 81 MG TABLET.DR. PO SCH (08:35)
[2019-01-02] MEDS: LACTOBACILLUS RHAMNOSUS GG 1 CAPSULE. PO SCH ×2 (08:35→20:02)
[2019-01-02] MEDS: MAGNESIUM OXIDE 400 MG TABLET PO SCH (08:35)
[2019-01-02] MEDS: AZITHROMYCIN 500 MG in IV NORMAL SALINE 250ML 250 ML IV SCH (08:36)
[2019-01-02] MEDS: methylPREDNISolone SOD SUCC PF 40 MG/ML VIAL. IV SCH (08:36)
[2019-01-02] MEDS ORDERED: FLU VAX QS 2019-20 (36MOS+)/PF 0.5 ML SYRINGE. VAX IM ONE (09:00)
--- NOTE | 2019-01-02 09:20 | CARD ---
MR#: [id number] Date of Study: 01/01/2019 Ordering Physician: ЕЛЕНА CHANG, Referring Physician: ЕЛЕНА CHANG, Tech: Liza Waldron ELI APPROVED REPORT EXAM: Two-dimensional and M-mode echocardiogram with Doppler and color Doppler. Other Information Quality : Good INDICATION Congestive Heart Failure 2D DIMENSIONS RVDd2.3 (2.9-3.5cm)Left Atrium(2D)3.3 (1.6-4.0cm) IVSd0.7 (0.7-1.1cm)Aortic Root(2D)2.7 (2.0-3.7cm) LVDd5.4 (3.9-5.9cm)LVOT Diameter2.1 (1.8-2.4cm) PWd0.7 (0.7-1.1cm)LVDs4.1 (2.5-4.0cm) FS (%) 24.8 %SV69.0 ml LVEF(%)50.0 (>50%) Aortic Valve AoV Peak Adan.142.0cm/sAoV VTI28.9cm AO Peak GR.8.1mmHgLVOT Peak Adan.110.4cm/s AO Mean GR.5mmHgAVA (VMAX)2.68cm2 NINA (VTI)2.80cm2 Mitral Valve MV E Fvtldlgt421.1cm/sMV DECEL ANRC459qx MV A Buzmgqpy741.9cm/sE/A Ratio0.8 Tricuspid Valve TR P. Cuvjiufp758ap/sRAP RCGFDKJI3rxHb TR Peak Gr.06vkNtZTFJ73mtPl Pulmonary Vein S1 Vynvgqjk22.0cm/sD2 Juhxsjsr39.1cm/s LEFT VENTRICLE The left ventricle is normal size. There is normal left ventricular wall thickness. Left ventricle sy stolic function is normal. The Ejection Fraction is 50-55%. There is normal LV segmental wall motion. Transmitral Doppler flow pattern is Grade I-abnormal relaxation pattern. RIGHT VENTRICLE The right ventricle is normal size. The right ventricular systolic function is normal. ATRIA The left atrium size is normal. The right atrium size is normal. The interatrial septum is intact wit h no evidence for an atrial septal defect or patent foramen ovale as noted on 2-D or Doppler imaging. AORTIC VALVE The aortic valve is calcified but opens well. Doppler and Color Flow revealed no significant aortic r egurgitation. There is no significant aortic valvular stenosis. MITRAL VALVE The mitral valve is normal in structure and function. There is no evidence of mitral valve prolapse. There is no mitral valve stenosis. Doppler and Color Flow revealed no mitral valve regurgitation note d. TRICUSPID VALVE The tricuspid valve is normal in structure and function. Doppler and Color Flow revealed trace tricus pid regurgitation. There is moderate pulmonary hypertension. The PA pressure was estimated at 44 mmHg . There is no tricuspid valve stenosis. PULMONIC VALVE The pulmonic valve is not well visualized. Doppler and Color Flow revealed no pulmonic valvular regur gitation. There is no pulmonic valvular stenosis. GREAT VESSELS The aortic root is normal in size. The ascending aorta is normal in size. The IVC is dilated and hilary apses >50% with inspiration. PERICARDIAL EFFUSION There is no evidence of significant pericardial effusion. Critical Notification Critical Value: No <Conclusion> Left ventricle systolic function is normal. The Ejection Fraction is 50-55%. There is normal LV segmental wall motion. Transmitral Doppler flow pattern is Grade I-abnormal relaxation pattern. Doppler and Color Flow revealed trace tricuspid regurgitation. The PA pressure was estimated at 44 mmHg. There is no evidence of significant pericardial effusion. Signed by : Josse Trinidad, Electronically Approved : 01/01/2019 11:01:01
[2019-01-02] MEDS: diazePAM 5 MG TABLET PO PRN ×2 (10:28→20:02)
--- NOTE | 2019-01-02 10:28 | PDOC ---
IM PROGRESS NOTES- Subjective Subjective Hasw cough,congestion,neck pain,bilateral hip pain. Objective Vitals/I&O Vital Signs Date Time Temp Pulse Resp B/P (MAP) Pulse Ox O2 Delivery O2 Flow Rate FiO2 01/02/19 08:33 20 97 Nasal Cannula 2.5 01/02/19 07:40 98.3 88 143/71 (95) 98.3 I & O 01/01/19 01/01/19 01/02/19 15:00 23:00 07:00 Intake Total 320 ml 220 ml 200 ml Balance 320 ml 220 ml 200 ml Physical Exam Physical Exam General appearance - alert,ill appearing, and in mild distress and oriented to person, place, and time Mental Status - alert, oriented to person, place, and time, affect appropriate to mood Head - normal Chest - few bilateral wheezes Heart - S1 and S2 normal Abdomen - soft, non tender Neurological - alert and oriented Musculoskeletal - joint pains Extremities - no pedal edema Skin - warm and dry Labs Laboratory Tests Test 01/02/19 03:45 Sodium Level 143 mmol/L (136-145) Potassium Level 4.1 mmol/L (3.5-5.1) Chloride Level 104 mmol/L (98-107) Carbon Dioxide Level 38 mmol/L (21-32) H Anion Gap 1 (6-14) L Blood Urea Nitrogen 13 mg/dL (7-20) Creatinine 0.5 mg/dL (0.6-1.0) L Estimated GFR (Cockcroft-Gault) 126.7 Glucose Level 89 mg/dL (70-99) Calcium Level 9.2 mg/dL (8.5-10.1) Triglycerides Level 45 mg/dL (0-150) Cholesterol Level 185 mg/dL (0-200) LDL Cholesterol, Calculated 97 mg/dL (0-100) VLDL Cholesterol, Calculated 9 mg/dL (0-40) Non-HDL Cholesterol Calculated 106 mg/dL (0-129) HDL Cholesterol 79 mg/dL (40-60) H Cholesterol/HDL Ratio 2.3 Laboratory Tests 01/02/19 03:45 Meds Current Medications Medications (Trade) Dose Ordered Sig/Jorge Luis Route PRN Reason Start Time Stop Time Status Last Admin Dose Admin Lactobacillus Rhamnosus (Culturelle) 1 cap BID PO 01/01/19 21:00 10/1/19 08:35 Furosemide (Lasix) 40 mg 1X ONCE IVP 01/01/19 13:15 01/01/19 13:16 DC 01/01/19 15:24 Aspirin (Ecotrin) 81 mg DAILYWBKFT PO 01/02/19 08:00 01/02/19 08:35 Assessment Assessment 1. Acute exacerbation of chronic obstructive pulmonary disease. 2. Acute bronchitis. 3. Acute hypotension. 4. Acute on chronic hypoxic respiratory failure. 5. Anemia. 6. Possible congestive heart failure with elevated BNP. 7. Anxiety. 8. Depression. 9. Chronic pain. 10. History of neck surgery and right hip surgery. PLAN: Consult Dr. Mercer for pulmonary evaluation and management and Dr. Costa for cardiology evaluation and management. She will need echocardiogram. I will start her on IV Solu-Medrol, start her on IV Rocephin and Zithromax. Continue breathing treatment. Her blood pressure is stable, so I will not add more fluids, but I will also not give her any diuretic at this time. Continue home medications. She is complaining a lot of pain. Discussed with staff. For details, please refer to the orders. Acute bronchitis- Influenza screen negative Anxiety Acute on chronic diastolic congestive heart failure. Use Lasix as needed. Electrocardiogram Left ventricle systolic function is normal. The Ejection Fraction is 50-55%. There is normal LV segmental wall motion. Transmitral Doppler flow pattern is Grade I-abnormal relaxation pattern. Doppler and Color Flow revealed trace tricuspid regurgitation. The PA pressure was estimated at 44 mmHg. There is no evidence of significant pericardial effusion. Overall improving. Labs echocardiogram discussed with the patient. Advised to stop smoking. Discussed with Dr. Mercer. Taper steroids. If stable discharge tomorrow. Plan Plan For more details regarding further plans, please refer to the orders. REYNALDO ESPITIA MD Jan 02, 2019 10:27
[2019-01-02] MEDS: cefTRIAXone IV Push 1 GM VIAL. IVP SCH (10:33)
[2019-01-02] MEDS ORDERED: CEFD300C PO (10:55)
[2019-01-02] MEDS ORDERED: PRED-220 PO (10:55)
--- NOTE | 2019-01-02 10:56 | DISCH ---
DISCHARGE INSTRUCTIONS Condition on Discharge Condition on Discharge: Stable Activity After Discharge Activity Instructions for Disc: Activity as tolerated Diet after Discharge Diet after Discharge: Cardiac Diet Texture: Regular Liquid Texture: Thin Liquid Contacting the DRJim after DC Call your doctor for: Concerns you may have Follow-Up Follow up with: Dr. REYNALDO Espitia in 5 days Treatment/Equipment after DC Discharge Respiratory Equipmen: Oxygen (2 and half liters per minute) REYNALDO ESPITIA MD Jan 02, 2019 10:56
--- NOTE | 2019-01-02 11:04 | PDOC ---
PULMONARY PROGRESS NOTES Subjective less soa Vitals Vital Signs Date Time Temp Pulse Resp B/P (MAP) Pulse Ox O2 Delivery O2 Flow Rate FiO2 01/02/19 09:35 19 97 Nasal Cannula 2.5 01/02/19 07:40 98.3 88 143/71 (95) 98.3 General: Alert, No acute distress Lungs: Crackles (bases) Cardiovascular: S1 Abdomen: Soft, Other (obese) Neuro Exam: Alert Extremities: No Edema Skin: Warm Labs Laboratory Tests Test 01/01/19 03:15 01/02/19 03:45 White Blood Count 15.2 x10^3/uL (4.0-11.0) Red Blood Count 3.46 x10^6/uL (3.50-5.40) Hemoglobin 10.0 g/dL (12.0-15.5) Hematocrit 31.2 % (36.0-47.0) Mean Corpuscular Volume 90 fL (79-100) Mean Corpuscular Hemoglobin 29 pg (25-35) Mean Corpuscular Hemoglobin Concent 32 g/dL (31-37) Red Cell Distribution Width 14.6 % (11.5-14.5) Platelet Count 303 x10^3/uL (140-400) Neutrophils (%) (Auto) 90 % (31-73) Lymphocytes (%) (Auto) 5 % (24-48) Monocytes (%) (Auto) 5 % (0-9) Eosinophils (%) (Auto) 0 % (0-3) Basophils (%) (Auto) 1 % (0-3) Neutrophils # (Auto) 13.6 x10^3/uL (1.8-7.7) Lymphocytes # (Auto) 0.7 x10^3/uL (1.0-4.8) Monocytes # (Auto) 0.7 x10^3/uL (0.0-1.1) Eosinophils # (Auto) 0.0 x10^3/uL (0.0-0.7) Basophils # (Auto) 0.1 x10^3/uL (0.0-0.2) Sodium Level 141 mmol/L (136-145) 143 mmol/L (136-145) Potassium Level 4.3 mmol/L (3.5-5.1) 4.1 mmol/L (3.5-5.1) Chloride Level 106 mmol/L (98-107) 104 mmol/L (98-107) Carbon Dioxide Level 34 mmol/L (21-32) 38 mmol/L (21-32) Anion Gap 1 (6-14) 1 (6-14) Blood Urea Nitrogen 9 mg/dL (7-20) 13 mg/dL (7-20) Creatinine 0.4 mg/dL (0.6-1.0) 0.5 mg/dL (0.6-1.0) Estimated GFR (Cockcroft-Gault) 163.9 126.7 BUN/Creatinine Ratio 23 (6-20) Glucose Level 116 mg/dL (70-99) 89 mg/dL (70-99) Calcium Level 8.5 mg/dL (8.5-10.1) 9.2 mg/dL (8.5-10.1) Magnesium Level 1.9 mg/dL (1.8-2.4) Total Bilirubin 0.2 mg/dL (0.2-1.0) Aspartate Amino Transf (AST/SGOT) 18 U/L (15-37) Alanine Aminotransferase (ALT/SGPT) 22 U/L (14-59) Alkaline Phosphatase 58 U/L (46-116) Troponin I Quantitative < 0.017 ng/mL (0.000-0.055) Total Protein 6.0 g/dL (6.4-8.2) Albumin 2.5 g/dL (3.4-5.0) Albumin/Globulin Ratio 0.7 (1.0-1.7) Thyroid Stimulating Hormone (TSH) 0.073 uIU/mL (0.358-3.74) Triglycerides Level 45 mg/dL (0-150) Cholesterol Level 185 mg/dL (0-200) LDL Cholesterol, Calculated 97 mg/dL (0-100) VLDL Cholesterol, Calculated 9 mg/dL (0-40) Non-HDL Cholesterol Calculated 106 mg/dL (0-129) HDL Cholesterol 79 mg/dL (40-60) Cholesterol/HDL Ratio 2.3 Laboratory Tests Test 01/02/19 03:45 Sodium Level 143 mmol/L (136-145) Potassium Level 4.1 mmol/L (3.5-5.1) Chloride Level 104 mmol/L (98-107) Carbon Dioxide Level 38 mmol/L (21-32) Anion Gap 1 (6-14) Blood Urea Nitrogen 13 mg/dL (7-20) Creatinine 0.5 mg/dL (0.6-1.0) Estimated GFR (Cockcroft-Gault) 126.7 Glucose Level 89 mg/dL (70-99) Calcium Level 9.2 mg/dL (8.5-10.1) Triglycerides Level 45 mg/dL (0-150) Cholesterol Level 185 mg/dL (0-200) LDL Cholesterol, Calculated 97 mg/dL (0-100) VLDL Cholesterol, Calculated 9 mg/dL (0-40) Non-HDL Cholesterol Calculated 106 mg/dL (0-129) HDL Cholesterol 79 mg/dL (40-60) Cholesterol/HDL Ratio 2.3 Medications Active Scripts Medications Dose Route/Sig Max Daily Dose Days Date Category Wixela 500-50 Inhub (Fluticasone Propion/Salmeterol) 1 Each Blst.w.dev 1 Inh INH BID 12/31/18 Reported Proair Hfa (Albuterol Sulfate) 8.5 Gm Hfa.aer.ad 2 Puff PO QID 12/31/18 Reported Diazepam 5 Mg Tablet 1 Tab PO BID PRN 12/31/18 Reported Azithromycin Tablet (Azithromycin) 250 Mg Tablet 1 Tab PO DAILY 12/31/18 Reported Fluoxetine Hcl 40 Mg Capsule 1 Tab PO DAILY 12/31/18 Reported Tizanidine Hcl 4 Mg Tablet 1 Tab PO TID PRN 12/31/18 Reported Cetirizine Hcl 10 Mg Tablet 1 Tab PO HS 12/31/18 Reported Mirtazapine 7.5 Mg Tablet 1 Tab PO DAILY 12/31/18 Reported Ranitidine Hcl 150 Mg Tablet 150 Mg PO BID 12/31/18 Reported Hydrocodone-Acetamin 10-325 mg (Hydrocodone/Acetaminophen) 1 Each Tablet 1 Tab PO Q6HRS 12/31/18 Reported Fluticasone Propionate Nasal [place] (Fluticasone Propionate) 16 Gm [place].susp 1 Puff NS DAILY 12/31/18 Reported Gabapentin 600 Mg Tablet 600 Mg PO TID 12/31/18 Reported Baclofen 10 Mg Tablet 10 Mg PO TID PRN 12/31/18 Reported Impression . 1. Acute on chronic respiratory failure, multifactorial in etiology, including acute exacerbation of chronic obstructive pulmonary disease, acute bronchitis versus , diastolic HF 2. Acute exacerbation of chronic obstructive pulmonary disease. 3. Acute bronchitis. 4. Tobacco habituation. 5. Elevated BNP./ abn cxr, suspect mild CHF Plan . 1. Titrate FiO2 to keep O2 saturation 92%. 2. bronchodilator. 3. Continue Solu-Medrol with taper 4. Continue Rocephin and azithromycin. 5. Continue Pulmicort. 6. I had a long discussion with her regarding smoking cessation. I have advised her to stop smoking forever. 7. Her BNP is elevated. DD on echocardiogram. better with lasix today SON MATHIS MD Jan 02, 2019 11:04
[2019-01-02 11:11] VITALS: BP 150/85
--- NOTE | 2019-01-02 11:34 | PDOC ---
CARDIO Progress Notes Date and Time Date of Service 01/02/2019 Time of Evaluation 1110 Subjective Subjective: No Chest Pain, No shortness of breath, No Palpitations Vitals Vitals Vital Signs Date Time Temp Pulse Resp B/P (MAP) Pulse Ox O2 Delivery O2 Flow Rate FiO2 01/02/19 11:11 99.4 84 20 150/85 (106) 93 Nasal Cannula 2.5 99.4 Weight Weight [ ] Input and Output Intake and Output Intake and Output 01/02/19 06:59 Intake Total 740 ml Balance 740 ml Intake Oral 740 ml # Voids 6 Laboratory Labs Laboratory Tests Test 01/02/19 03:45 Sodium Level 143 mmol/L (136-145) Potassium Level 4.1 mmol/L (3.5-5.1) Chloride Level 104 mmol/L (98-107) Carbon Dioxide Level 38 mmol/L (21-32) Anion Gap 1 (6-14) Blood Urea Nitrogen 13 mg/dL (7-20) Creatinine 0.5 mg/dL (0.6-1.0) Estimated GFR (Cockcroft-Gault) 126.7 Glucose Level 89 mg/dL (70-99) Calcium Level 9.2 mg/dL (8.5-10.1) Triglycerides Level 45 mg/dL (0-150) Cholesterol Level 185 mg/dL (0-200) LDL Cholesterol, Calculated 97 mg/dL (0-100) VLDL Cholesterol, Calculated 9 mg/dL (0-40) Non-HDL Cholesterol Calculated 106 mg/dL (0-129) HDL Cholesterol 79 mg/dL (40-60) Cholesterol/HDL Ratio 2.3 Microbiology Micro Microbiology 12/31/18 Blood Culture - Preliminary, Resulted NO GROWTH AFTER 2 DAYS Physical Exam HEENT: Neck Supple W Full Motion Chest: Symmetric LUNGS: Other (diminished throughout) Heart: S1S2, RRR (SR) Abdomen: Soft N/T Extremities: No Edema, No Calf Tenderness Neurology: alert, oriented, follow commands Assessment Assessment 1. Acute on chronic respiratory failure with AECOPD 2. Mild acute diastolic CHF; induced by above. EF and WM nml. No arrhythmias. Compensated 3. Leukocytosis 4. Anxiety 5. Tobaccoism; discussed/encouraged cessation 6. Low TSH level: defer to PCP Recommendations 1. Lasix PRN 2. Lung optimization as per pulmonary 3. Had LHC last yr normal per pt. Supportive care 4. Smoking cessation 5. Will follow along peripherally AIYANA BELTRÁN APRN Jan 02, 2019 11:34
[2019-01-02] MEDS ORDERED: FUROSEMIDE 40 MG TABLET. PO ONE (12:30)
[2019-01-02 15:30] VITALS: BP 158/80
[2019-01-02 19:46] VITALS: BP 131/71
[2019-01-02] MEDS: MIRTAZAPINE 7.5 MG TABLET. PO SCH (20:02)
[2019-01-02] MEDS: CETIRIZINE HCL 10 MG TABLET. PO SCH (20:02)
[2019-01-02 23:48] VITALS: BP 120/75
[2019-01-03 03:00] VITALS: BP 121/74
[2019-01-03 07:00] VITALS: BP 139/68
[2019-01-03] MEDS: ALBUTEROL SULFATE 2.5 MG/3 ML NEBU. NEB SCH ×3 (07:33→13:22)
[2019-01-03] MEDS: BUDESONIDE 0.5 MG/2 ML NEBU. NEB SCH (07:33)
[2019-01-03] MEDS: FAMOTIDINE 20 MG TABLET. PO SCH (09:07)
[2019-01-03] MEDS: ASPIRIN ENTERIC COATED 81 MG TABLET.DR. PO SCH (09:07)
[2019-01-03] MEDS: MAGNESIUM OXIDE 400 MG TABLET PO SCH (09:07)
[2019-01-03] MEDS: GABAPENTIN 300 MG CAPSULE. PO SCH (09:07)
[2019-01-03] MEDS: FLUoxetine HCL 20 MG CAPSULE PO SCH (09:07)
[2019-01-03] MEDS: LACTOBACILLUS RHAMNOSUS GG 1 CAPSULE. PO SCH (09:07)
[2019-01-03] MEDS: cefTRIAXone IV Push 1 GM VIAL. IVP SCH (09:08)
[2019-01-03] MEDS: AZITHROMYCIN 500 MG in IV NORMAL SALINE 250ML 250 ML IV SCH (09:08)
[2019-01-03] MEDS: FLUTICASONE 50MCG/NASAL SPRAY 16GM BOTTLE. NS SCH (09:09)
[2019-01-03] MEDS: HYDROcodone/APAP 10/325 1 TAB TABLET PO PRN (09:20)
--- NOTE | 2019-01-03 09:38 | PDOC ---
PULMONARY PROGRESS NOTES Subjective less soa Vitals Vital Signs Date Time Temp Pulse Resp B/P (MAP) Pulse Ox O2 Delivery O2 Flow Rate FiO2 01/03/19 09:20 96 Nasal Cannula 2.0 01/03/19 07:00 98.1 78 18 139/68 (91) 98.1 General: Alert, No acute distress Lungs: Crackles (bases) Cardiovascular: S1 Abdomen: Soft, Other (obese) Neuro Exam: Alert Extremities: No Edema Skin: Warm Labs Laboratory Tests Test 01/02/19 03:45 Sodium Level 143 mmol/L (136-145) Potassium Level 4.1 mmol/L (3.5-5.1) Chloride Level 104 mmol/L (98-107) Carbon Dioxide Level 38 mmol/L (21-32) Anion Gap 1 (6-14) Blood Urea Nitrogen 13 mg/dL (7-20) Creatinine 0.5 mg/dL (0.6-1.0) Estimated GFR (Cockcroft-Gault) 126.7 Glucose Level 89 mg/dL (70-99) Calcium Level 9.2 mg/dL (8.5-10.1) Triglycerides Level 45 mg/dL (0-150) Cholesterol Level 185 mg/dL (0-200) LDL Cholesterol, Calculated 97 mg/dL (0-100) VLDL Cholesterol, Calculated 9 mg/dL (0-40) Non-HDL Cholesterol Calculated 106 mg/dL (0-129) HDL Cholesterol 79 mg/dL (40-60) Cholesterol/HDL Ratio 2.3 Free Thyroxine 0.73 ng/dL (0.76-1.46) Medications Active Scripts Medications Dose Route/Sig Max Daily Dose Days Date Category Wixela 500-50 Inhub (Fluticasone Propion/Salmeterol) 1 Each Blst.w.dev 1 Inh INH BID 12/31/18 Reported Proair Hfa (Albuterol Sulfate) 8.5 Gm Hfa.aer.ad 2 Puff PO QID 12/31/18 Reported Diazepam 5 Mg Tablet 1 Tab PO BID PRN 12/31/18 Reported Azithromycin Tablet (Azithromycin) 250 Mg Tablet 1 Tab PO DAILY 12/31/18 Reported Fluoxetine Hcl 40 Mg Capsule 1 Tab PO DAILY 12/31/18 Reported Tizanidine Hcl 4 Mg Tablet 1 Tab PO TID PRN 12/31/18 Reported Cetirizine Hcl 10 Mg Tablet 1 Tab PO HS 12/31/18 Reported Mirtazapine 7.5 Mg Tablet 1 Tab PO DAILY 12/31/18 Reported Ranitidine Hcl 150 Mg Tablet 150 Mg PO BID 12/31/18 Reported Hydrocodone-Acetamin 10-325 mg (Hydrocodone/Acetaminophen) 1 Each Tablet 1 Tab PO Q6HRS 12/31/18 Reported Fluticasone Propionate Nasal [place] (Fluticasone Propionate) 16 Gm [place].susp 1 Puff NS DAILY 12/31/18 Reported Gabapentin 600 Mg Tablet 600 Mg PO TID 12/31/18 Reported Baclofen 10 Mg Tablet 10 Mg PO TID PRN 12/31/18 Reported Impression . 1. Acute on chronic respiratory failure, multifactorial in etiology, including acute exacerbation of chronic obstructive pulmonary disease, acute bronchitis versus , diastolic HF 2. Acute exacerbation of chronic obstructive pulmonary disease. 3. Acute bronchitis. 4. Tobacco habituation. 5. Elevated BNP./ abn cxr, suspect mild CHF Plan . 1. Titrate FiO2 to keep O2 saturation 92%. 2. bronchodilator. 3. Continue Solu-Medrol with taper, change to PO at dc 4. Continue Rocephin and azithromycin. change to PO 5. Continue Pulmicort. 6. I had a long discussion with her regarding smoking cessation. I have advised her to stop smoking forever. 7. ok with dc home today SON MATHIS MD Jan 03, 2019 09:38
--- NOTE | 2019-01-03 09:45 | NUR ---
[facility] consulted for placement. Chart reviewed and discussed with RN. Pt states she lives with her cousins and have good support. Pt declined SNU, AL or LTC placement. Pt also declined HH services. Pt has home o2 and reported her family can take her home. Pt denies any needs at this time. RN notified.
[2019-01-03] MEDS ORDERED: methylPREDNISolone SOD SUCC PF 40 MG/ML VIAL. IV SCH (10:00)
--- NOTE | 2019-01-03 10:01 | PDOC3 ---
IM DISCHARGE SUMMARY Date of Admission Date of Admission Date of Admission: Dec 31, 2018 at 00:50 Date of Discharge Date of Discharge January 03, 2019 Primary Diagnosis Primary Diagnosis 1. Acute exacerbation of chronic obstructive pulmonary disease. 2. Acute bronchitis. 3. Acute hypotension. 4. Acute on chronic hypoxic respiratory failure. 5. Anemia. 6. Acute on chronic diastolic congestive heart failure 7. Anxiety. 8. Depression. 9. Chronic pain. 10. History of neck surgery and right hip surgery. Consults Consults Damian Mercer MD; Suraj Black MD Brief hospital course Brief hospital course This [id number] female who is known to have history of COPD with chronic respiratory failure, on oxygen by nasal cannula 3 liters per minute, started having cough, congestion and dyspnea, progressively getting worse. Symptoms were present for the last 3 days, but yesterday, it got much worse. She had yellow mucus and became more short of breath, so she came to the Emergency Room. In the Emergency Room, her O2 saturation in the low 70s, that were reported from home and it improved to 95% with CPAP. EMS had reported that her O2 sats were in 70s at home and she was given CPAP and brought to the Emergency Room. In the Emergency Room, O2 sat was 98%. Because of the acute bronchitis and exacerbation of COPD and respiratory failure, the patient was admitted for further evaluation and management. The patient's WBC count was noted to be 17.7, hemoglobin was 10.3, sodium was 140, potassium was 3.7, BUN 8, creatinine 0.6, magnesium was low at 1.6. BNP 3346. Troponin less than 0.017. Lactic acid was 0.7, albumin was 3. Chest x-ray showed some congestive changes and COPD, possible basilar atelectasis versus mild pulmonary edema. For more details regarding the past history, family history, social history, surgical history and other details, please refer to History and Physical. Consult Dr. Mercer for pulmonary evaluation and management and Dr. Black for cardiology evaluation and management. She will need echocardiogram. I will start her on IV Solu-Medrol, start her on IV Rocephin and Zithromax. Continue breathing treatment. Her blood pressure is stable, so I will not add more fluids, but I will also not give her any diuretic at this time. Continue home medications. She is complaining a lot of pain. Discussed with staff. For details, please refer to the orders. Acute bronchitis- Influenza screen negative Anxiety Acute on chronic diastolic congestive heart failure. Use Lasix as needed. Electrocardiogram Left ventricle systolic function is normal. The Ejection Fraction is 50-55%. There is normal LV segmental wall motion. Transmitral Doppler flow pattern is Grade I-abnormal relaxation pattern. Doppler and Color Flow revealed trace tricuspid regurgitation. The PA pressure was estimated at 44 mmHg. There is no evidence of significant pericardial effusion. Overall improving. Labs echocardiogram discussed with the patient. Advised to stop smoking. Clinically improving. Discharged home on cefdinir 300 mg by mouth twice daily for 5 days. Taper dose of prednisone 40 mg daily for 4 days 30 mg daily for 4 days then 20 mg daily for 4 days and then 10 mg daily for 4 days. Continue oxygen by nasal cannula 2-1/2 L/m at home. Medications Current Medications Medications (Trade) Dose Ordered Sig/Jorge Luis Route PRN Reason Start Time Stop Time Status Last Admin Dose Admin Methylprednisolone Sodium Succinate (SOLU-Medrol 40MG VIAL) 60 mg DAILY10 IV 01/03/19 10:00 01/03/19 09:08 Furosemide (Lasix) 40 mg 1X ONCE PO 01/02/19 12:30 01/02/19 12:31 DC 01/02/19 15:37 Medications reviewed and reconciled for discharge. Allergy Allergies Coded Allergies Type Severity Reaction Last Updated Verified No Known Drug Allergies 12/31/18 No Follow up in 5 days. DISPOSITION: Home Comments Discharge Management - 35 minutes. For other details please refer to discharge instructions REYNALDO ESPITIA MD Jan 03, 2019 10:01
--- NOTE | 2019-01-03 13:40 | NUR ---
Discharge Note: CARIDAD CALLES [address] [place] [address] Discharge instructions and discharge home medications reviewed with Patient and a copy given. All questions have been answered and understanding verbalized. The following instructions and handouts were given: FOLLOW UP INSTRUCTIONS, ACTIVITY LEVELS, AND MEDICATION LISTS. Discontinued lines and drains: Peripheral IV DISCONTINUED AND CATHETER intact. Patient discharged to Home or Self Care with Family Member via Wheelchair.
== END 2019-01-03 13:45 | disposition home or self-care (01) | DRG 291 ==
LOC: ER 00:26 → 6 SOUTH 00:50
PROVIDERS: ADMIT Internal Medicine; ATTEND Internal Medicine
DX: I11.0 Hypertensive heart disease with heart failure (principal); J96.21 Acute and chronic respiratory failure with hypoxia; J44.0 Chronic obstructive pulmonary disease with (acute) lower respiratory infection; J44.1 Chronic obstructive pulmonary disease with (acute) exacerbation; I50.33 Acute on chronic diastolic (congestive) heart failure; D64.9 Anemia, unspecified; E83.42 Hypomagnesemia; F17.210 Nicotine dependence, cigarettes, uncomplicated; I95.9 Hypotension, unspecified; F32.9 Major depressive disorder, single episode, unspecified; F41.9 Anxiety disorder, unspecified; G89.29 Other chronic pain; J20.9 Acute bronchitis, unspecified; J32.9 Chronic sinusitis, unspecified; Z82.49 Family history of ischemic heart disease and other diseases of the circulatory system; Z99.81 Dependence on supplemental oxygen; Z71.6 Tobacco abuse counseling
CPT/HCPCS: 36415; 71045; 80048; 80053; 80061; 82550; 83605; 83735; 83880; 84439; 84443; 84484; 85007; 85025; 87040; 87804; 90471; 90686; 93005; 93306; 94640; 94760; 96361; 96374; 96375; J0456; J0696; J1940; J2543; J2920; J2930; J3010; J3370; J7030; J7050; J7613; J7620; J7626; 97110; 97530; 99285-25; G0378

== ENCOUNTER 2019-02-11 10:15 | Inpatient (IN) | payer MEDICARE, OTHER ==
[~2019-02-11] VITALS: Ht 160 cm; Wt 58.5 kg
[~2019-02-11 10:15] MED LIST changes: -IPRA3AMP29 NEB; -LACT1CAP19 PO
[2019-02-11] MEDS ORDERED: IV NORMAL SALINE 500ML BAG 500 ML IV ONE (10:30)
[2019-02-11] MEDS ORDERED: IPRATRPIUM/ALBUTEROL 0.5/2.5MG 3 ML NEBU. NEB ONE ×2 (10:30→14:00)
--- NOTE | 2019-02-11 10:36 | PHYS DOC ---
Past Medical History Past Medical History: Anxiety, COPD Additional Past Medical Histor: chronic neck pain Additional Past Surgical Histo: NECK Smoking: Cigarettes Alcohol Use: Rarely Drug Use: None Adult General Chief Complaint Chief Complaint: SHORTNESS OF BREATH HPI HPI Patient is a 58-year-old female, with a history of COPD, current smoker, on home oxygen 2 L/m chronically, who presents to the emergency department for evaluation. The patient states for the past 2 weeks she has had increasing difficulty breathing, and sinus congestion. She saw her doctor this past e sd, and was given an antibiotic, although she is uncertain of which one. She has had a cough she states is productive of thick greenish sputum, although her mucus production has been limited. She denies any new pain, including any chest pain, pleuritic pain, and has not had any fevers or chills. There are no alleviating or exacerbating factors to her symptoms, although exertion seems to worsen her shortness of breath. She did take an albuterol treatment prior to EMS arrival with out significant improvement in her symptoms. Review of Systems Review of Systems Constitutional: Denies fever or chills [] Eyes: Denies change in visual acuity, redness, or eye pain [] HENT: Denies nasal congestion or sore throat [] Respiratory: No additional information not addressed in HPI [] Cardiovascular: The patient denies any chest pain, palpitations, or orthopnea [] GI: Denies abdominal pain, nausea, vomiting, bloody stools or diarrhea [] : Denies dysuria or hematuria [] Musculoskeletal: Denies back pain or joint pain [] Integument: Denies rash or skin lesions [] Neurologic: Denies headache, focal weakness or sensory changes [] Endocrine: Denies polyuria or polydipsia [] All other systems were reviewed and found to be within normal limits, except as documented in this note. Current Medications Current Medications Current Medications Medications (Trade) Dose Ordered Sig/Jorge Luis Start Time Stop Time Status Last Admin Dose Admin Albuterol/ Ipratropium (Duoneb) 3 ml 1X ONCE 02/11/19 10:30 02/11/19 10:31 DC 02/11/19 10:38 3 ML Methylprednisolone Sodium Succinate (SOLU-Medrol 125MG VIAL) 125 mg 1X ONCE 02/11/19 11:45 02/11/19 11:46 DC 02/11/19 11:54 125 MG Sodium Chloride 500 ml @ 500 mls/hr 1X ONCE 02/11/19 10:30 02/11/19 11:29 DC 02/11/19 11:10 500 MLS/HR Allergies Allergies Allergies Coded Allergies Type Severity Reaction Last Updated Verified No Known Drug Allergies 12/31/18 No Physical Exam Physical Exam PHYSICAL EXAM: CONSTITUTIONAL: Well developed, well nourished HEAD: normocephalic, atraumatic EENT: PERRL, EOMI. Conjunctivae normal color, sclerae non-icteric; moist mucous membranes. NECK: Supple, non-tender; no meningismus. LUNGS: There are globally diminished breath sounds in all lung kim, with some scattered wheezes in the right mid and lower lung kim, breathing even and unlabored. HEART: Regular rate and rhythm, no murmur CHEST: No deformity; non-tender ABDOMEN: The abdomen is soft, and non-tender, no masses or bruits. EXTREM: Normal ROM; no deformity, no calf tenderness. Normal pulses palpable in all extremities. There is no pedal edema. SKIN: No rash; no diaphoresis NEURO: Alert; normal speech and cognition; CN's grossly intact; strength grossly intact without focal deficit. BACK: No CVA TTP. Current Patient Data Vital Signs Vital Signs Date Time Temp Pulse Resp B/P (MAP) Pulse Ox O2 Delivery O2 Flow Rate FiO2 02/11/19 10:41 93 Nasal Cannula 2.0 02/11/19 10:15 98.7 98 22 145/85 (105) 98.7 Lab Values Laboratory Tests Test 02/11/19 10:35 02/11/19 11:05 O2 Saturation 92 % (92-99) Arterial Blood pH 7.36 (7.35-7.45) Arterial Blood pCO2 at Patient Temp 72 mmHg (35-46) *H Arterial Blood pO2 at Patient Temp 60 mmHg (75-108) L Arterial Blood HCO3 39 mmol/L (21-28) H Arterial Blood Base Excess 11 mmol/L (-3-3) H FiO2 2 lpm nc White Blood Count 8.6 x10^3/uL (4.0-11.0) Red Blood Count 3.84 x10^6/uL (3.50-5.40) Hemoglobin 11.3 g/dL (12.0-15.5) L Hematocrit 35.0 % (36.0-47.0) L Mean Corpuscular Volume 91 fL (79-100) Mean Corpuscular Hemoglobin 29 pg (25-35) Mean Corpuscular Hemoglobin Concent 32 g/dL (31-37) Red Cell Distribution Width 15.3 % (11.5-14.5) H Platelet Count 341 x10^3/uL (140-400) Neutrophils (%) (Auto) 78 % (31-73) H Lymphocytes (%) (Auto) 13 % (24-48) L Monocytes (%) (Auto) 6 % (0-9) Eosinophils (%) (Auto) 1 % (0-3) Basophils (%) (Auto) 1 % (0-3) Neutrophils # (Auto) 6.7 x10^3/uL (1.8-7.7) Lymphocytes # (Auto) 1.1 x10^3/uL (1.0-4.8) Monocytes # (Auto) 0.5 x10^3/uL (0.0-1.1) Eosinophils # (Auto) 0.1 x10^3/uL (0.0-0.7) Basophils # (Auto) 0.1 x10^3/uL (0.0-0.2) Sodium Level 141 mmol/L (136-145) Potassium Level 4.5 mmol/L (3.5-5.1) Chloride Level 100 mmol/L (98-107) Carbon Dioxide Level 39 mmol/L (21-32) H Anion Gap 2 (6-14) L Blood Urea Nitrogen 13 mg/dL (7-20) Creatinine 0.6 mg/dL (0.6-1.0) Estimated GFR (Cockcroft-Gault) 102.7 BUN/Creatinine Ratio 22 (6-20) H Glucose Level 94 mg/dL (70-99) Calcium Level 9.2 mg/dL (8.5-10.1) Total Bilirubin 0.4 mg/dL (0.2-1.0) Aspartate Amino Transferase (AST) 22 U/L (15-37) Alanine Aminotransferase (ALT) 19 U/L (14-59) Alkaline Phosphatase 66 U/L (46-116) Troponin I Quantitative < 0.017 ng/mL (0.000-0.055) LF-Kbu-D-Type Natriuretic Peptide 827 pg/mL (0-124) H Total Protein 7.3 g/dL (6.4-8.2) Albumin 3.6 g/dL (3.4-5.0) Albumin/Globulin Ratio 1.0 (1.0-1.7) Laboratory Tests 02/11/19 11:05 Laboratory Tests 02/11/19 11:05 EKG EKG Normal sinus rhythm a rate of 93 bpm, normal axis, normal intervals, rare PVCs, there are no acute ischemic ST/T changes.[] Radiology/Procedures Radiology/Procedures PROCEDURE: CHEST PA & LATERAL Chest radiograph 02/11/2019 10:22 AM INDICATION: Increased shortness of breath COMPARISON: 12/31/2018 TECHNIQUE: Frontal and lateral views of the chest are provided. FINDINGS: The cardiomediastinal silhouette is within normal limits. There are no pleural effusions. There is no pulmonary vascular congestion. There is no pneumothorax. Mild interstitial changes at the lung bases appear chronic. Left lingular bandlike density may represent subsegmental atelectasis versus infiltrate. No significant osseous abnormality is identified. IMPRESSION: Lingular bandlike density may represent atelectasis and/or infiltrate.[] Course & Med Decision Making Course & Med Decision Making Pertinent Labs and Imaging studies reviewed. (See chart for details) []12:05 PM: The patient's condition remains stable But she states she is not feeling much different. I spoke with the hospitalist, who accepted the patient to the hospital for further evaluation and treatment. Dragon Disclaimer Dragon Disclaimer This electronic medical record was generated, in whole or in part, using a voice recognition dictation system. Departure Departure Impression: Primary Impression: COPD exacerbation Disposition: ADMITTED INPATIENT Admitting Physician: Rochelle Mathews (covering for Alfredo) Condition: STABLE Referrals: REYNALDO ESPITIA MD (PCP) YVETTE CERON MD Feb 11, 2019 10:36
[2019-02-11 10:46] LABS: BASE EXCESS ABG 11 mmol/L (-3-3); HCO3 ABG 39 mmol/L (21-28); PO2 ABG 60 mmHg (75-108); SAT O2 ABG 92 % (92-99)
[2019-02-11 10:50] LABS: PCO2 ABG 72 mmHg (35-46)
[2019-02-11 11:11] LABS: BASO # 0.1 x10^3/uL (0.0-0.2); BASO % 1 % (0-3); EOS # 0.1 x10^3/uL (0.0-0.7); EOS % 1 % (0-3); HEMOGLOBIN 11.3 g/dL (12.0-15.5); LYMPH # 1.1 x10^3/uL (1.0-4.8); LYMPH % 13 % (24-48); MEAN CORPUSCULAR HEMOGLOBIN 29 pg (25-35); MEAN CORPUSCULAR HGB CONC 32 g/dL (31-37); MEAN CORPUSCULAR VOLUME 91 fL (79-100); MONO # 0.5 x10^3/uL (0.0-1.1); MONO % 6 % (0-9); NEUT # 6.7 x10^3/uL (1.8-7.7); NEUT % 78 % (31-73); PLATELET COUNT 341 x10^3/uL (140-400); RED BLOOD COUNT 3.84 x10^6/uL (3.50-5.40); RED CELL DISTRIBUTION WIDTH 15.3 % (11.5-14.5); WHITE BLOOD COUNT 8.6 x10^3/uL (4.0-11.0)
[2019-02-11 11:19] LABS: CALCIUM 9.2 mg/dL (8.5-10.1); CREATININE 0.6 mg/dL (0.6-1.0); GFR 102.7; POTASSIUM 4.5 mmol/L (3.5-5.1)
[2019-02-11 11:25] LABS: ALBUMIN 3.6 g/dL (3.4-5.0); TOTAL BILIRUBIN 0.4 mg/dL (0.2-1.0); TOTAL PROTEIN 7.3 g/dL (6.4-8.2)
--- NOTE | 2019-02-11 11:33 | RAD ---
Chest radiograph 02/11/2019 10:22 AM INDICATION: Increased shortness of breath COMPARISON: 12/31/2018 TECHNIQUE: Frontal and lateral views of the chest are provided. FINDINGS: The cardiomediastinal silhouette is within normal limits. There are no pleural effusions. There is no pulmonary vascular congestion. There is no pneumothorax. Mild interstitial changes at the lung bases appear chronic. Left lingular bandlike density may represent subsegmental atelectasis versus infiltrate. No significant osseous abnormality is identified. IMPRESSION: Lingular bandlike density may represent atelectasis and/or infiltrate. Electronically signed by: Teresa Snowden MD (02/11/2019 11:29 AM) [facility]
[2019-02-11] MEDS ORDERED: methylPREDNISolone SOD SUCC PF 125 MG/2 ML VIAL. IV ONE (11:45)
[2019-02-11 13:00] VITALS: BP 153/93
[2019-02-11] MEDS: methylPREDNISolone SOD SUCC PF 40 MG/ML VIAL. IV SCH ×2 (14:00→22:06)
[2019-02-11] MEDS: diazePAM 5 MG TABLET PO PRN (14:16)
[2019-02-11] MEDS: IV NORMAL SALINE 1000ML BAG 1,000 ML IV SCH ×2 (14:16→14:25)
--- NOTE | 2019-02-11 14:35 | EKG ---
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
[2019-02-11] MEDS: CYCLOBENZAPRINE 10 MG TABLET. PO PRN (14:47)
[2019-02-11] MEDS: cefTRIAXone IV Push 1 GM VIAL. IVP SCH (14:47)
[2019-02-11 14:51] LABS: BARBITURATES NEG (NEG); BENZODIAZEPINES POS (NEG); CANNABINOIDS NEG (NEG); COCAINE NEG (NEG); METHADONE NEG (NEG); OPIATES POS (NEG); PHENCYCLIDINE NEG (NEG)
[2019-02-11] MEDS: GABAPENTIN 300 MG CAPSULE. PO SCH ×2 (14:51→20:27)
[2019-02-11 14:54] VITALS: BP 136/84
[2019-02-11 14:54] LABS: AMPHETAMINE/METHAMPHETAMINE NEG (NEG)
[2019-02-11 15:00] VITALS: BP 155/84
--- NOTE | 2019-02-11 15:32 | PDOC ---
PULMONARY PROGRESS NOTES Vitals Vital Signs Date Time Temp Pulse Resp B/P (MAP) Pulse Ox O2 Delivery O2 Flow Rate FiO2 02/11/19 15:19 Nasal Cannula 3.0 02/11/19 15:00 91 24 155/84 (107) 93 02/11/19 10:15 98.7 98.7 General: Alert, No acute distress Lungs: Crackles Cardiovascular: S1 Abdomen: Soft, Other Extremities: No Edema Labs Laboratory Tests Test 02/11/19 10:35 02/11/19 11:05 02/11/19 13:57 O2 Saturation 92 % (92-99) Arterial Blood pH 7.36 (7.35-7.45) Arterial Blood pCO2 at Patient Temp 72 mmHg (35-46) Arterial Blood pO2 at Patient Temp 60 mmHg (75-108) Arterial Blood HCO3 39 mmol/L (21-28) Arterial Blood Base Excess 11 mmol/L (-3-3) FiO2 2 lpm nc White Blood Count 8.6 x10^3/uL (4.0-11.0) Red Blood Count 3.84 x10^6/uL (3.50-5.40) Hemoglobin 11.3 g/dL (12.0-15.5) Hematocrit 35.0 % (36.0-47.0) Mean Corpuscular Volume 91 fL (79-100) Mean Corpuscular Hemoglobin 29 pg (25-35) Mean Corpuscular Hemoglobin Concent 32 g/dL (31-37) Red Cell Distribution Width 15.3 % (11.5-14.5) Platelet Count 341 x10^3/uL (140-400) Neutrophils (%) (Auto) 78 % (31-73) Lymphocytes (%) (Auto) 13 % (24-48) Monocytes (%) (Auto) 6 % (0-9) Eosinophils (%) (Auto) 1 % (0-3) Basophils (%) (Auto) 1 % (0-3) Neutrophils # (Auto) 6.7 x10^3/uL (1.8-7.7) Lymphocytes # (Auto) 1.1 x10^3/uL (1.0-4.8) Monocytes # (Auto) 0.5 x10^3/uL (0.0-1.1) Eosinophils # (Auto) 0.1 x10^3/uL (0.0-0.7) Basophils # (Auto) 0.1 x10^3/uL (0.0-0.2) Sodium Level 141 mmol/L (136-145) Potassium Level 4.5 mmol/L (3.5-5.1) Chloride Level 100 mmol/L (98-107) Carbon Dioxide Level 39 mmol/L (21-32) Anion Gap 2 (6-14) Blood Urea Nitrogen 13 mg/dL (7-20) Creatinine 0.6 mg/dL (0.6-1.0) Estimated GFR (Cockcroft-Gault) 102.7 BUN/Creatinine Ratio 22 (6-20) Glucose Level 94 mg/dL (70-99) Calcium Level 9.2 mg/dL (8.5-10.1) Total Bilirubin 0.4 mg/dL (0.2-1.0) Aspartate Amino Transf (AST/SGOT) 22 U/L (15-37) Alanine Aminotransferase (ALT/SGPT) 19 U/L (14-59) Alkaline Phosphatase 66 U/L (46-116) Troponin I Quantitative < 0.017 ng/mL (0.000-0.055) DZ-Von-Q-Type Natriuretic Peptide 827 pg/mL (0-124) Total Protein 7.3 g/dL (6.4-8.2) Albumin 3.6 g/dL (3.4-5.0) Albumin/Globulin Ratio 1.0 (1.0-1.7) Urine Opiates Screen Pos (NEG) Urine Methadone Screen Neg (NEG) Urine Barbiturates Neg (NEG) Urine Phencyclidine Screen Neg (NEG) Urine Amphetamine/Methamphetamine Neg (NEG) Urine Benzodiazepines Screen Pos (NEG) Urine Cocaine Screen Neg (NEG) Urine Cannabinoids Screen Neg (NEG) Urine Ethyl Alcohol Neg (NEG) Laboratory Tests Test 02/11/19 10:35 02/11/19 11:05 02/11/19 13:57 O2 Saturation 92 % (92-99) Arterial Blood pH 7.36 (7.35-7.45) Arterial Blood pCO2 at Patient Temp 72 mmHg (35-46) Arterial Blood pO2 at Patient Temp 60 mmHg (75-108) Arterial Blood HCO3 39 mmol/L (21-28) Arterial Blood Base Excess 11 mmol/L (-3-3) FiO2 2 lpm nc White Blood Count 8.6 x10^3/uL (4.0-11.0) Red Blood Count 3.84 x10^6/uL (3.50-5.40) Hemoglobin 11.3 g/dL (12.0-15.5) Hematocrit 35.0 % (36.0-47.0) Mean Corpuscular Volume 91 fL (79-100) Mean Corpuscular Hemoglobin 29 pg (25-35) Mean Corpuscular Hemoglobin Concent 32 g/dL (31-37) Red Cell Distribution Width 15.3 % (11.5-14.5) Platelet Count 341 x10^3/uL (140-400) Neutrophils (%) (Auto) 78 % (31-73) Lymphocytes (%) (Auto) 13 % (24-48) Monocytes (%) (Auto) 6 % (0-9) Eosinophils (%) (Auto) 1 % (0-3) Basophils (%) (Auto) 1 % (0-3) Neutrophils # (Auto) 6.7 x10^3/uL (1.8-7.7) Lymphocytes # (Auto) 1.1 x10^3/uL (1.0-4.8) Monocytes # (Auto) 0.5 x10^3/uL (0.0-1.1) Eosinophils # (Auto) 0.1 x10^3/uL (0.0-0.7) Basophils # (Auto) 0.1 x10^3/uL (0.0-0.2) Sodium Level 141 mmol/L (136-145) Potassium Level 4.5 mmol/L (3.5-5.1) Chloride Level 100 mmol/L (98-107) Carbon Dioxide Level 39 mmol/L (21-32) Anion Gap 2 (6-14) Blood Urea Nitrogen 13 mg/dL (7-20) Creatinine 0.6 mg/dL (0.6-1.0) Estimated GFR (Cockcroft-Gault) 102.7 BUN/Creatinine Ratio 22 (6-20) Glucose Level 94 mg/dL (70-99) Calcium Level 9.2 mg/dL (8.5-10.1) Total Bilirubin 0.4 mg/dL (0.2-1.0) Aspartate Amino Transf (AST/SGOT) 22 U/L (15-37) Alanine Aminotransferase (ALT/SGPT) 19 U/L (14-59) Alkaline Phosphatase 66 U/L (46-116) Troponin I Quantitative < 0.017 ng/mL (0.000-0.055) IK-Jqv-Y-Type Natriuretic Peptide 827 pg/mL (0-124) Total Protein 7.3 g/dL (6.4-8.2) Albumin 3.6 g/dL (3.4-5.0) Albumin/Globulin Ratio 1.0 (1.0-1.7) Urine Opiates Screen Pos (NEG) Urine Methadone Screen Neg (NEG) Urine Barbiturates Neg (NEG) Urine Phencyclidine Screen Neg (NEG) Urine Amphetamine/Methamphetamine Neg (NEG) Urine Benzodiazepines Screen Pos (NEG) Urine Cocaine Screen Neg (NEG) Urine Cannabinoids Screen Neg (NEG) Urine Ethyl Alcohol Neg (NEG) Medications Active Scripts Medications Dose Route/Sig Max Daily Dose Days Date Category Dose Instructions Prednisone (Prednisone) 10 Mg Tablet 10 Mg PO UD 01/02/19 Rx Take 3 tablets by mouth twice a day for 3 days, then take 2 tablets by mouth twice a day for 3 days, then take 1 tablet by mouth twice a day for 3 days, then take 1 tablet by mouth daily x 3 days, then stop. Cefdinir 300 Mg Capsule 1 Cap PO BID 01/02/19 Rx Wixela 500-50 Inhub (Fluticasone Propion/Salmeterol) 1 Each Blst.w.dev 1 Inh INH BID 12/31/18 Reported Proair Hfa (Albuterol Sulfate) 8.5 Gm Hfa.aer.ad 2 Puff PO QID 12/31/18 Reported Diazepam 5 Mg Tablet 1 Tab PO BID PRN 12/31/18 Reported Fluoxetine Hcl 40 Mg Capsule 1 Tab PO DAILY 12/31/18 Reported Tizanidine Hcl 4 Mg Tablet 1 Tab PO TID PRN 12/31/18 Reported Cetirizine Hcl 10 Mg Tablet 1 Tab PO HS 12/31/18 Reported Mirtazapine 7.5 Mg Tablet 1 Tab PO DAILY 12/31/18 Reported Ranitidine Hcl 150 Mg Tablet 150 Mg PO BID 12/31/18 Reported Hydrocodone-Acetamin 10-325 mg (Hydrocodone/Acetaminophen) 1 Each Tablet 1 Tab PO Q6HRS 12/31/18 Reported Fluticasone Propionate Nasal [place] (Fluticasone Propionate) 16 Gm [place].susp 1 Puff NS DAILY 12/31/18 Reported Gabapentin 600 Mg Tablet 600 Mg PO TID 12/31/18 Reported Baclofen 10 Mg Tablet 10 Mg PO TID PRN 12/31/18 Reported Impression . FULL NOTE DICTATED AECOPD POSSIBLE PNEUMONIA NIGEL LAMB MD Feb 11, 2019 15:32
[2019-02-11] MEDS: IPRATRPIUM/ALBUTEROL 0.5/2.5MG 3 ML NEBU. NEB SCH ×2 (16:20→20:17)
--- NOTE | 2019-02-11 16:31 | NUR ---
Patient arrived on unit around 1500 from ER. Patient very agitated, restless. Breathing treatment given. Patient continually asked about pain medications, anxiety medications. Dr. Mathews restarted patient's home medications. Valium, Flexeril given. Patient's cousin arrived, states that patient has panic attacks and has done this same thing recently. See assessments, VS.
[2019-02-11] MEDS: DOXYCYCLINE HYCLATE 100 MG in IV DEXTROSE 5% 100ML 100 ML IV SCH (17:17)
[2019-02-11] MEDS ORDERED: IPRATRPIUM/ALBUTEROL 0.5/2.5MG 3 ML NEBU. NEB SCH (18:00)
[2019-02-11 18:15] VITALS: BP 138/69
[2019-02-11] MEDS: BUDESONIDE 0.5 MG/2 ML NEBU. NEB SCH (20:17)
[2019-02-11] MEDS: HYDROcodone/APAP 10/325 1 TAB TABLET PO PRN (20:26)
[2019-02-11] MEDS: MIRTAZAPINE 7.5 MG TABLET. PO SCH (20:26)
[2019-02-11] MEDS: CETIRIZINE HCL 10 MG TABLET. PO SCH (20:27)
[2019-02-11] MEDS: FAMOTIDINE 20 MG TABLET. PO SCH (20:27)
--- NOTE | 2019-02-11 22:30 | CONS ---
DATE OF CONSULTATION: 02/11/2019 ATTENDING PHYSICIAN: Elva Fuentes MD REASON FOR CONSULTATION: The patient is seen in pulmonary consultation at the request of Dr. Fuentes for increasing shortness of air. HISTORY OF PRESENT ILLNESS: The patient is a 58-year-old that is smoking on and off, currently on oxygen supplementation for chronic respiratory failure, presented to the Emergency Room with increasing shortness of breath. She was actually being treated as an outpatient for acute exacerbation of COPD and sinusitis. She failed outpatient therapy. She was admitted. I was asked to see her in consultation. I reviewed her x-ray, which reveals evidence of chronic changes along with a lingular opacity. The patient denies any documented fever and no nausea or vomiting. There is no prior history of myocardial infarction, DVT or pulmonary embolism. She did mention that she has pulmonary hypertension, suspect this is secondary pulmonary hypertension. PAST MEDICAL HISTORY: Otherwise remarkable for severe COPD, chronic anxiety, chronic respiratory failure, tobacco dependence, secondary pulmonary hypertension. REVIEW OF SYSTEMS: CONSTITUTIONAL: No fever or chills. EYES: No change in visual acuity. HENT: As indicated above. The patient was treated as an outpatient for acute sinusitis. PULMONARY: As indicated above. CARDIOVASCULAR: No chest pain or pressure. GASTROINTESTINAL: No nausea, vomiting, or diarrhea. GENITOURINARY: No dysuria or frequency. MUSCULOSKELETAL: No localized muscle aches or joint pains. SKIN: No new skin rashes. NEUROLOGIC: No headaches, diplopia or blurred vision. HOME MEDICATIONS: List was reviewed. ALLERGIES: No known drug allergies. SOCIAL HISTORY: She continues to smoke. CURRENT MEDICATION: List was likewise reviewed. PHYSICAL EXAMINATION: VITAL SIGNS: The patient appeared to be older than stated age, currently on 2 liters. She appeared to be anxious. HEENT: Eyes, the sclerae were nonicteric. NECK: Jugular venous distention could not be assessed secondary to body habitus. CHEST: Full expansion. LUNGS: Poor airway flow with mild expiratory wheeze. CARDIOVASCULAR: Regular rate and rhythm with S1, S2, no S3. ABDOMEN: Soft, nontender, nondistended. EXTREMITIES: No clubbing, cyanosis or edema. NEUROLOGICAL: The patient was awake, alert, following commands. A detailed neuro exam was not performed. LABORATORY DATA: Arterial blood gas revealed a pH of 7.35, PaCO2 of 72, PaO2 of 60 on 2 liters. White count was normal. Hemoglobin and hematocrit were noted. Electrolytes noted. Toxicology screen was positive for opiates and benzodiazepines. IMPRESSION: 1. [id number]-jm-[id number] hypercapnic hypoxemic respiratory failure. 2. Abnormal chest x-ray revealing lingular opacity. 3. Possible pneumonia, suspect Gram-negative, possible Gram-positive. The patient has been in the hospital, near in the past 3 months. 4. Failed outpatient treatment for acute bronchitis and exacerbation of chronic obstructive pulmonary disease. 5. Anxiety. 6. Secondary pulmonary hypertension. 7. Tobacco dependence. PLAN: 1. We will continue current medical regimen. 2. P.r.n. BiPAP. 3. The patient instructed on the importance of discontinuing tobacco use. 4. Nebulized treatments. 5. Antibiotics. 6. We will offer nicotine replacement and Chantix prior to discharge. I do appreciate the privilege in sharing in the patient's care. NIGEL LAMB MD DR: BEN/donta JOB#: [id number] / [id number]
[2019-02-11 23:00] VITALS: BP 116/64
[2019-02-12] MEDS: CYCLOBENZAPRINE 10 MG TABLET. PO PRN (01:42)
[2019-02-12] MEDS: HYDROcodone/APAP 10/325 1 TAB TABLET PO PRN ×4 (01:43→19:14)
[2019-02-12] MEDS: IV NORMAL SALINE 1000ML BAG 1,000 ML IV SCH ×2 (02:39→20:58)
[2019-02-12 03:00] VITALS: BP 95/76
[2019-02-12] MEDS: diazePAM 5 MG TABLET PO PRN ×3 (03:07→21:00)
[2019-02-12] MEDS: methylPREDNISolone SOD SUCC PF 40 MG/ML VIAL. IV SCH (05:56)
[2019-02-12 07:00] VITALS: BP 156/71
[2019-02-12] MEDS: FLUoxetine HCL 20 MG CAPSULE PO SCH (07:47)
[2019-02-12] MEDS: FAMOTIDINE 20 MG TABLET. PO SCH ×2 (07:47→20:58)
[2019-02-12] MEDS: GABAPENTIN 300 MG CAPSULE. PO SCH ×3 (07:47→20:58)
[2019-02-12] MEDS: FLUTICASONE 50MCG/NASAL SPRAY 16GM BOTTLE. NS SCH (07:49)
[2019-02-12] MEDS: IPRATRPIUM/ALBUTEROL 0.5/2.5MG 3 ML NEBU. NEB SCH ×4 (08:20→19:49)
[2019-02-12] MEDS: BUDESONIDE 0.5 MG/2 ML NEBU. NEB SCH ×2 (08:20→19:49)
--- NOTE | 2019-02-12 09:02 | PDOC ---
PULMONARY PROGRESS NOTES Vitals Vital Signs Date Time Temp Pulse Resp B/P (MAP) Pulse Ox O2 Delivery O2 Flow Rate FiO2 02/12/19 08:20 97 Nasal Cannula 2.0 02/12/19 07:00 98.0 100 24 156/71 (99) 98.0 General: Alert, No acute distress Lungs: Crackles Cardiovascular: S1 Abdomen: Soft, Other Extremities: No Edema Labs Laboratory Tests Test 02/11/19 10:35 02/11/19 11:05 02/11/19 13:57 O2 Saturation 92 % (92-99) Arterial Blood pH 7.36 (7.35-7.45) Arterial Blood pCO2 at Patient Temp 72 mmHg (35-46) Arterial Blood pO2 at Patient Temp 60 mmHg (75-108) Arterial Blood HCO3 39 mmol/L (21-28) Arterial Blood Base Excess 11 mmol/L (-3-3) FiO2 2 lpm nc White Blood Count 8.6 x10^3/uL (4.0-11.0) Red Blood Count 3.84 x10^6/uL (3.50-5.40) Hemoglobin 11.3 g/dL (12.0-15.5) Hematocrit 35.0 % (36.0-47.0) Mean Corpuscular Volume 91 fL (79-100) Mean Corpuscular Hemoglobin 29 pg (25-35) Mean Corpuscular Hemoglobin Concent 32 g/dL (31-37) Red Cell Distribution Width 15.3 % (11.5-14.5) Platelet Count 341 x10^3/uL (140-400) Neutrophils (%) (Auto) 78 % (31-73) Lymphocytes (%) (Auto) 13 % (24-48) Monocytes (%) (Auto) 6 % (0-9) Eosinophils (%) (Auto) 1 % (0-3) Basophils (%) (Auto) 1 % (0-3) Neutrophils # (Auto) 6.7 x10^3/uL (1.8-7.7) Lymphocytes # (Auto) 1.1 x10^3/uL (1.0-4.8) Monocytes # (Auto) 0.5 x10^3/uL (0.0-1.1) Eosinophils # (Auto) 0.1 x10^3/uL (0.0-0.7) Basophils # (Auto) 0.1 x10^3/uL (0.0-0.2) Sodium Level 141 mmol/L (136-145) Potassium Level 4.5 mmol/L (3.5-5.1) Chloride Level 100 mmol/L (98-107) Carbon Dioxide Level 39 mmol/L (21-32) Anion Gap 2 (6-14) Blood Urea Nitrogen 13 mg/dL (7-20) Creatinine 0.6 mg/dL (0.6-1.0) Estimated GFR (Cockcroft-Gault) 102.7 BUN/Creatinine Ratio 22 (6-20) Glucose Level 94 mg/dL (70-99) Calcium Level 9.2 mg/dL (8.5-10.1) Total Bilirubin 0.4 mg/dL (0.2-1.0) Aspartate Amino Transf (AST/SGOT) 22 U/L (15-37) Alanine Aminotransferase (ALT/SGPT) 19 U/L (14-59) Alkaline Phosphatase 66 U/L (46-116) Troponin I Quantitative < 0.017 ng/mL (0.000-0.055) QT-Urn-T-Type Natriuretic Peptide 827 pg/mL (0-124) Total Protein 7.3 g/dL (6.4-8.2) Albumin 3.6 g/dL (3.4-5.0) Albumin/Globulin Ratio 1.0 (1.0-1.7) Urine Opiates Screen Pos (NEG) Urine Methadone Screen Neg (NEG) Urine Barbiturates Neg (NEG) Urine Phencyclidine Screen Neg (NEG) Urine Amphetamine/Methamphetamine Neg (NEG) Urine Benzodiazepines Screen Pos (NEG) Urine Cocaine Screen Neg (NEG) Urine Cannabinoids Screen Neg (NEG) Urine Ethyl Alcohol Neg (NEG) Laboratory Tests Test 02/11/19 10:35 02/11/19 11:05 02/11/19 13:57 O2 Saturation 92 % (92-99) Arterial Blood pH 7.36 (7.35-7.45) Arterial Blood pCO2 at Patient Temp 72 mmHg (35-46) Arterial Blood pO2 at Patient Temp 60 mmHg (75-108) Arterial Blood HCO3 39 mmol/L (21-28) Arterial Blood Base Excess 11 mmol/L (-3-3) FiO2 2 lpm nc White Blood Count 8.6 x10^3/uL (4.0-11.0) Red Blood Count 3.84 x10^6/uL (3.50-5.40) Hemoglobin 11.3 g/dL (12.0-15.5) Hematocrit 35.0 % (36.0-47.0) Mean Corpuscular Volume 91 fL (79-100) Mean Corpuscular Hemoglobin 29 pg (25-35) Mean Corpuscular Hemoglobin Concent 32 g/dL (31-37) Red Cell Distribution Width 15.3 % (11.5-14.5) Platelet Count 341 x10^3/uL (140-400) Neutrophils (%) (Auto) 78 % (31-73) Lymphocytes (%) (Auto) 13 % (24-48) Monocytes (%) (Auto) 6 % (0-9) Eosinophils (%) (Auto) 1 % (0-3) Basophils (%) (Auto) 1 % (0-3) Neutrophils # (Auto) 6.7 x10^3/uL (1.8-7.7) Lymphocytes # (Auto) 1.1 x10^3/uL (1.0-4.8) Monocytes # (Auto) 0.5 x10^3/uL (0.0-1.1) Eosinophils # (Auto) 0.1 x10^3/uL (0.0-0.7) Basophils # (Auto) 0.1 x10^3/uL (0.0-0.2) Sodium Level 141 mmol/L (136-145) Potassium Level 4.5 mmol/L (3.5-5.1) Chloride Level 100 mmol/L (98-107) Carbon Dioxide Level 39 mmol/L (21-32) Anion Gap 2 (6-14) Blood Urea Nitrogen 13 mg/dL (7-20) Creatinine 0.6 mg/dL (0.6-1.0) Estimated GFR (Cockcroft-Gault) 102.7 BUN/Creatinine Ratio 22 (6-20) Glucose Level 94 mg/dL (70-99) Calcium Level 9.2 mg/dL (8.5-10.1) Total Bilirubin 0.4 mg/dL (0.2-1.0) Aspartate Amino Transf (AST/SGOT) 22 U/L (15-37) Alanine Aminotransferase (ALT/SGPT) 19 U/L (14-59) Alkaline Phosphatase 66 U/L (46-116) Troponin I Quantitative < 0.017 ng/mL (0.000-0.055) LZ-Gdr-G-Type Natriuretic Peptide 827 pg/mL (0-124) Total Protein 7.3 g/dL (6.4-8.2) Albumin 3.6 g/dL (3.4-5.0) Albumin/Globulin Ratio 1.0 (1.0-1.7) Urine Opiates Screen Pos (NEG) Urine Methadone Screen Neg (NEG) Urine Barbiturates Neg (NEG) Urine Phencyclidine Screen Neg (NEG) Urine Amphetamine/Methamphetamine Neg (NEG) Urine Benzodiazepines Screen Pos (NEG) Urine Cocaine Screen Neg (NEG) Urine Cannabinoids Screen Neg (NEG) Urine Ethyl Alcohol Neg (NEG) Medications Active Scripts Medications Dose Route/Sig Max Daily Dose Days Date Category Dose Instructions Prednisone (Prednisone) 10 Mg Tablet 10 Mg PO UD 01/02/19 Rx Take 3 tablets by mouth twice a day for 3 days, then take 2 tablets by mouth twice a day for 3 days, then take 1 tablet by mouth twice a day for 3 days, then take 1 tablet by mouth daily x 3 days, then stop. Cefdinir 300 Mg Capsule 1 Cap PO BID 01/02/19 Rx Wixela 500-50 Inhub (Fluticasone Propion/Salmeterol) 1 Each Blst.w.dev 1 Inh INH BID 12/31/18 Reported Proair Hfa (Albuterol Sulfate) 8.5 Gm Hfa.aer.ad 2 Puff PO QID 12/31/18 Reported Diazepam 5 Mg Tablet 1 Tab PO BID PRN 12/31/18 Reported Fluoxetine Hcl 40 Mg Capsule 1 Tab PO DAILY 12/31/18 Reported Tizanidine Hcl 4 Mg Tablet 1 Tab PO TID PRN 12/31/18 Reported Cetirizine Hcl 10 Mg Tablet 1 Tab PO HS 12/31/18 Reported Mirtazapine 7.5 Mg Tablet 1 Tab PO DAILY 12/31/18 Reported Ranitidine Hcl 150 Mg Tablet 150 Mg PO BID 12/31/18 Reported Hydrocodone-Acetamin 10-325 mg (Hydrocodone/Acetaminophen) 1 Each Tablet 1 Tab PO Q6HRS 12/31/18 Reported Fluticasone Propionate Nasal [place] (Fluticasone Propionate) 16 Gm [place].susp 1 Puff NS DAILY 12/31/18 Reported Gabapentin 600 Mg Tablet 600 Mg PO TID 12/31/18 Reported Baclofen 10 Mg Tablet 10 Mg PO TID PRN 12/31/18 Reported Impression . FULL NOTE DICTATED AECOPD POSSIBLE PNEUMONIA NIGEL LAMB MD Feb 12, 2019 09:02
[2019-02-12] MEDS ORDERED: ACETAMINOPHEN 325 MG TABLET. PO PRN (09:15)
--- NOTE | 2019-02-12 09:43 | PDOC ---
Provider Note Provider Note Patient seen. History and Physical dictated. See dictation # [id number] REYNALDO ESPITIA MD Feb 12, 2019 09:43
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
[2019-02-12] MEDS: DOXYCYCLINE HYCLATE 100 MG in IV DEXTROSE 5% 100ML 100 ML IV SCH ×2 (10:02→21:04)
[2019-02-12] MEDS: ENOXAPARIN 40 MG/0.4 ML SYRINGE. SQ SCH (10:02)
[2019-02-12 10:34] LABS: CALCIUM 8.8 mg/dL (8.5-10.1); CREATININE 0.5 mg/dL (0.6-1.0); GFR 126.7; POTASSIUM 4.1 mmol/L (3.5-5.1)
[2019-02-12 11:00] VITALS: BP 135/61
--- NOTE | 2019-02-12 13:02 | PDOC2 ---
[facility] 02/12/19 1302: CARDIAC CONSULT DATE OF CONSULT Date of Consult DATE: 02/12/19 TIME: 12:56 REASON FOR CONSULT Reason for Consult: PVCs REFERRING PHYSICIAN Referring Physician: Dr. Fuentes SOURCE Source: Chart review, Patient HISTORY OF PRESENT ILLNESS HISTORY OF PRESENT ILLNESS This is a 58 yo female who presented secondary to shortness of breath and sinus congestion for the last couple fo weeks. Has been progressively worsening. Noted with PVC's on telemetry, which prompted this consult. Patient has known h/o of PVC's. She denies any chest pain, palpitations, dizziness, diaphoresis, or nausea/vomiting. PAST MEDICAL HISTORY Cardiovascular: Other (PVCs) Pulmonary: COPD Psych: Anxiety, Depression Musculoskeletal: Other (chronic pain) PAST SURGICAL HISTORY Past Surgical History: Hysterectomy FAMILY HISTORY Family History: Other (no pertinent hx) SOCIAL HISTORY Smoke: <1 pack per day ALCOHOL: none Drugs: None CURRENT MEDICATIONS CURRENT MEDICATIONS Current Medications Medications (Trade) Dose Ordered Sig/Jorge Luis Route PRN Reason Start Time Stop Time Status Last Admin Dose Admin Cetirizine HCl (ZyrTEC) 10 mg HS PO 02/11/19 21:00 02/11/19 20:27 Diazepam (Valium) 5 mg PRN BID PRN PO ANXIETY / AGITATION 02/11/19 14:00 02/12/19 07:48 Fluticasone Propionate (Flonase) 1 spray DAILY NS 02/12/19 09:00 02/12/19 07:49 Acetaminophen/ Hydrocodone Bitart (Lortab 10/325) 1 tab PRN Q6HRS PRN PO MODERATE PAIN, SEVERE PAIN 02/11/19 15:00 02/12/19 07:47 Mirtazapine (Remeron) 7.5 mg QHS PO 02/11/19 21:00 02/11/19 20:26 Cyclobenzaprine HCl (Flexeril) 10 mg PRN Q8HRS PRN PO MUSCLE SPASMS 2ND CHOICE 02/11/19 14:30 02/12/19 09:29 DC 02/12/19 01:42 Fluoxetine HCl (PROzac) 40 mg DAILY PO 02/12/19 09:00 02/12/19 07:47 Budesonide (Pulmicort) 0.5 mg RTBID NEB 02/11/19 20:00 02/12/19 08:20 Gabapentin (Neurontin) 600 mg TID PO 02/11/19 14:30 02/12/19 07:47 Famotidine (Pepcid) 20 mg BID PO 02/11/19 21:00 02/12/19 07:47 Methylprednisolone Sodium Succinate (SOLU-Medrol 40MG VIAL) 40 mg Q8HRS IV 02/11/19 14:00 02/12/19 09:29 DC 02/12/19 05:56 Ceftriaxone Sodium (Rocephin) 1 gm Q24H IVP 02/11/19 14:30 02/11/19 14:47 Albuterol/ Ipratropium (Duoneb) 3 ml RTQID NEB 02/11/19 16:00 02/12/19 12:17 Albuterol/ Ipratropium (Duoneb) 3 ml 1X ONCE NEB 02/11/19 14:00 02/11/19 14:02 DC 02/11/19 13:25 Sodium Chloride 1,000 ml @ 100 mls/hr Q10H IV 02/11/19 14:00 02/12/19 02:39 Doxycycline Hyclate 100 mg/ Dextrose 100 ml @ 50 mls/hr Q12HR IV 02/11/19 17:00 02/12/19 10:02 Enoxaparin Sodium (Lovenox 40mg Syringe) 40 mg Q24H SQ 02/12/19 10:00 02/12/19 10:02 ALLERGIES ALLERGIES: Coded Allergies: No Known Drug Allergies (Unverified , 12/31/18) ROS Review of System 14 point ROS conducted with pertinent positives noted above in HPI. PHYSICAL EXAM General: Alert, Oriented X3, Cooperative, No acute distress HEENT: Atraumatic, Mucous membr. moist/pink Lungs: Other (coarse throught ) Heart: Regular rate (SR with intermittent PVC's) Abdomen: Soft, No tenderness Extremities: No edema, Normal pulses Skin: No significant lesion Neuro: Normal speech, Sensation intact Psych/Mental Status: Mental status NL, Mood NL MUSCULOSKELETAL: Osteoarthritic changes both hands VITALS/I&O VITALS/I&O: Vital Signs Date Time Temp Pulse Resp B/P (MAP) Pulse Ox O2 Delivery O2 Flow Rate FiO2 02/12/19 12:17 96 Nasal Cannula 2.0 02/12/19 11:00 85 18 135/61 (85) 02/12/19 07:00 98.0 98.0 I & O 02/11/19 02/11/19 02/12/19 15:00 23:00 07:00 Intake Total 500 ml 320 ml 0 ml Output Total 525 ml 900 ml 750 ml Balance -25 ml -580 ml -750 ml LABS Lab: Laboratory Tests Test 02/11/19 13:57 02/12/19 10:10 Urine Opiates Screen Pos (NEG) Urine Methadone Screen Neg (NEG) Urine Barbiturates Neg (NEG) Urine Phencyclidine Screen Neg (NEG) Urine Amphetamine/Methamphetamine Neg (NEG) Urine Benzodiazepines Screen Pos (NEG) Urine Cocaine Screen Neg (NEG) Urine Cannabinoids Screen Neg (NEG) Urine Ethyl Alcohol Neg (NEG) Sodium Level 137 mmol/L (136-145) Potassium Level 4.1 mmol/L (3.5-5.1) Chloride Level 99 mmol/L (98-107) Carbon Dioxide Level 33 mmol/L (21-32) H Anion Gap 5 (6-14) L Blood Urea Nitrogen 14 mg/dL (7-20) Creatinine 0.5 mg/dL (0.6-1.0) L Estimated GFR (Cockcroft-Gault) 126.7 Glucose Level 144 mg/dL (70-99) H Calcium Level 8.8 mg/dL (8.5-10.1) Magnesium Level 2.0 mg/dL (1.8-2.4) Laboratory Tests 02/12/19 10:10 ECHOCARDIOGRAM ECHOCARDIOGRAM <Conclusion> Left ventricle systolic function is normal. The Ejection Fraction is 50-55%. There is normal LV segmental wall motion. Transmitral Doppler flow pattern is Grade I-abnormal relaxation pattern. Doppler and Color Flow revealed trace tricuspid regurgitation. The PA pressure was estimated at 44 mmHg. There is no evidence of significant pericardial effusion. DATE: 01/01/19 1058 ASSESSMENT/PLAN ASSESSMENT/PLAN 1. Acute on chronic respiratory failure; AE COPD, possible PNA. O2 dependent 2. Chronic diastolic CHF; clinically compensated. recent echo with preserved LV systolic function with an EF of 50-55% 3. Arrhythmia; SR intermittent PVC's noted on tele. 4. Hyperthyroidism; recent TSH 0.073 5. Anxiety 6. Tobaccoism; discussed/encouraged cessation Recommendations Can use low-dose BB for suppression unless significant wheezing noted. Supportive care No further cardiac workup warranted at this time NIKKY ISBELL MD 02/13/19 0022: CARDIAC CONSULT ASSESSMENT/PLAN ASSESSMENT/PLAN Late entry for 02/12/2019 Pt. seen and examined. Agree with above JUDO TEACHER note. Supportive care. She reports a cath at [facility] 1 year go wnl. Thanks STEPHANIE ANN APRN Feb 12, 2019 13:02 NIKKY ISBELL MD Feb 13, 2019 00:22
[2019-02-12] MEDS: tiZANidine 4 MG TABLET. PO PRN (13:07)
--- NOTE | 2019-02-12 16:24 | NUR ---
SS following for discharge planning. SS reviewed pt chart. Pt is from home with family and is currently requiring oxygen. SS will continue to follow for discharge planning.
[2019-02-12] MEDS: cefTRIAXone IV Push 1 GM VIAL. IVP SCH (17:20)
[2019-02-12 19:45] VITALS: BP 114/61
[2019-02-12] MEDS: LACTOBACILLUS RHAMNOSUS GG 1 CAPSULE. PO SCH (20:58)
[2019-02-12] MEDS: CETIRIZINE HCL 10 MG TABLET. PO SCH (20:59)
[2019-02-12] MEDS: MIRTAZAPINE 7.5 MG TABLET. PO SCH (20:59)
[2019-02-12 23:10] VITALS: BP 153/57
[2019-02-13 02:40] VITALS: BP 159/85
[2019-02-13] MEDS: IV NORMAL SALINE 1000ML BAG 1,000 ML IV SCH ×3 (05:36→17:52)
[2019-02-13] MEDS ORDERED: ALBUTEROL SULFATE 2.5 MG/3 ML NEBU. NEB PRN (06:15)
[2019-02-13] MEDS: HYDROcodone/APAP 10/325 1 TAB TABLET PO PRN ×3 (06:16→20:38)
[2019-02-13] MEDS: IPRATRPIUM/ALBUTEROL 0.5/2.5MG 3 ML NEBU. NEB SCH ×4 (06:21→20:40)
[2019-02-13] MEDS: BUDESONIDE 0.5 MG/2 ML NEBU. NEB SCH ×2 (06:21→20:40)
[2019-02-13 06:32] LABS: BASO # 0.1 x10^3/uL (0.0-0.2); BASO % 1 % (0-3); EOS % 0 % (0-3); HEMATOCRIT 32.8 % (36.0-47.0); HEMOGLOBIN 10.7 g/dL (12.0-15.5); LYMPH # 2.4 x10^3/uL (1.0-4.8); LYMPH % 26 % (24-48); MEAN CORPUSCULAR HEMOGLOBIN 30 pg (25-35); MEAN CORPUSCULAR HGB CONC 33 g/dL (31-37); MEAN CORPUSCULAR VOLUME 90 fL (79-100); MONO # 0.8 x10^3/uL (0.0-1.1); MONO % 8 % (0-9); NEUT # 6.1 x10^3/uL (1.8-7.7); NEUT % 65 % (31-73); PLATELET COUNT 349 x10^3/uL (140-400); RED BLOOD COUNT 3.63 x10^6/uL (3.50-5.40); RED CELL DISTRIBUTION WIDTH 15.7 % (11.5-14.5); WHITE BLOOD COUNT 9.4 x10^3/uL (4.0-11.0)
[2019-02-13 06:55] LABS: ALBUMIN 2.9 g/dL (3.4-5.0); ALBUMIN/GLOBULIN RATIO 0.9 (1.0-1.7); CALCIUM 8.4 mg/dL (8.5-10.1); CREATININE 0.5 mg/dL (0.6-1.0); GFR 126.7; POTASSIUM 3.9 mmol/L (3.5-5.1); TOTAL BILIRUBIN 0.3 mg/dL (0.2-1.0); TOTAL PROTEIN 6.3 g/dL (6.4-8.2)
[2019-02-13 07:15] VITALS: BP 120/70
[2019-02-13] MEDS: FLUTICASONE 50MCG/NASAL SPRAY 16GM BOTTLE. NS SCH (08:58)
[2019-02-13] MEDS: FAMOTIDINE 20 MG TABLET. PO SCH ×2 (08:59→20:36)
[2019-02-13] MEDS: LACTOBACILLUS RHAMNOSUS GG 1 CAPSULE. PO SCH ×2 (08:59→20:37)
[2019-02-13] MEDS: FLUoxetine HCL 20 MG CAPSULE PO SCH (08:59)
[2019-02-13] MEDS: ENOXAPARIN 40 MG/0.4 ML SYRINGE. SQ SCH (09:00)
[2019-02-13] MEDS: GABAPENTIN 300 MG CAPSULE. PO SCH ×3 (09:00→20:36)
[2019-02-13] MEDS: methylPREDNISolone SOD SUCC PF 40 MG/ML VIAL. IV SCH (09:00)
[2019-02-13] MEDS: DOXYCYCLINE HYCLATE 100 MG in IV DEXTROSE 5% 100ML 100 ML IV SCH ×2 (09:01→20:37)
[2019-02-13 10:52] VITALS: BP 122/69
--- NOTE | 2019-02-13 11:13 | PDOC ---
IM PROGRESS NOTES- Subjective Subjective Patient has cough and congestion. She is anxious and crying and depressed. Objective Vitals/I&O Vital Signs Date Time Temp Pulse Resp B/P (MAP) Pulse Ox O2 Delivery O2 Flow Rate FiO2 02/13/19 10:52 98.2 96 18 122/69 (86) 95 Nasal Cannula 2.0 98.2 I & O 02/12/19 02/12/19 02/13/19 15:00 23:00 07:00 Intake Total 500 ml 1500 ml Balance 500 ml 1500 ml Physical Exam Physical Exam GENERAL: The patient is anxious, depressed and crying and not in mild distress. HEENT: Unremarkable except for mild congestion of throat. NECK: Supple. JVP normal. No thyromegaly. Trachea midline. LUNGS: Decreased breath sounds at bases. Mild tachypnea. No wheezing. CARDIOVASCULAR: S1, S2. Regular with occasional extra beats due to PVCs. ABDOMEN: Soft, nontender, no guarding, no rigidity. Bowel sounds present. EXTREMITIES: No edema. CENTRAL NERVOUS SYSTEM: Alert, very anxious, mental status is improving Labs Laboratory Tests Test 02/13/19 04:00 White Blood Count 9.4 x10^3/uL (4.0-11.0) Red Blood Count 3.63 x10^6/uL (3.50-5.40) Hemoglobin 10.7 g/dL (12.0-15.5) L Hematocrit 32.8 % (36.0-47.0) L Mean Corpuscular Volume 90 fL (79-100) Mean Corpuscular Hemoglobin 30 pg (25-35) Mean Corpuscular Hemoglobin Concent 33 g/dL (31-37) Red Cell Distribution Width 15.7 % (11.5-14.5) H Platelet Count 349 x10^3/uL (140-400) Neutrophils (%) (Auto) 65 % (31-73) Lymphocytes (%) (Auto) 26 % (24-48) Monocytes (%) (Auto) 8 % (0-9) Eosinophils (%) (Auto) 0 % (0-3) Basophils (%) (Auto) 1 % (0-3) Neutrophils # (Auto) 6.1 x10^3/uL (1.8-7.7) Lymphocytes # (Auto) 2.4 x10^3/uL (1.0-4.8) Monocytes # (Auto) 0.8 x10^3/uL (0.0-1.1) Eosinophils # (Auto) 0.0 x10^3/uL (0.0-0.7) Basophils # (Auto) 0.1 x10^3/uL (0.0-0.2) Sodium Level 142 mmol/L (136-145) Potassium Level 3.9 mmol/L (3.5-5.1) Chloride Level 103 mmol/L (98-107) Carbon Dioxide Level 34 mmol/L (21-32) H Anion Gap 5 (6-14) L Blood Urea Nitrogen 13 mg/dL (7-20) Creatinine 0.5 mg/dL (0.6-1.0) L Estimated GFR (Cockcroft-Gault) 126.7 BUN/Creatinine Ratio 26 (6-20) H Glucose Level 77 mg/dL (70-99) Calcium Level 8.4 mg/dL (8.5-10.1) L Total Bilirubin 0.3 mg/dL (0.2-1.0) Aspartate Amino Transferase (AST) 16 U/L (15-37) Alanine Aminotransferase (ALT) 14 U/L (14-59) Alkaline Phosphatase 51 U/L (46-116) Total Protein 6.3 g/dL (6.4-8.2) L Albumin 2.9 g/dL (3.4-5.0) L Albumin/Globulin Ratio 0.9 (1.0-1.7) L Laboratory Tests 02/13/19 04:00 Laboratory Tests 02/13/19 04:00 Meds Current Medications Medications (Trade) Dose Ordered Sig/Jorge Luis Route PRN Reason Start Time Stop Time Status Last Admin Dose Admin Lactobacillus Rhamnosus (Culturelle) 1 cap BID PO 02/12/19 21:00 02/13/19 08:59 Methylprednisolone Sodium Succinate (SOLU-Medrol 40MG VIAL) 40 mg DAILY08 IV 02/13/19 08:00 02/13/19 09:00 Assessment Assessment 1. Acute exacerbation of chronic obstructive pulmonary disease. 2. Acute on chronic hypoxic and hypercapnic respiratory failure. 3. Diastolic congestive heart failure. 4. Anemia. 5. Pneumonia, possibly gram-negative as well as possible gram-positive pneumonia. 6. Anxiety. 7. Acute metabolic encephalopathy. 8. Paranoia. 9. Depression. 10. Chronic pain syndrome. 11. History of neck surgery and right hip surgery. PLAN: The patient has been very anxious and paranoid. I will decrease Solu-Medrol to 40 mg IV once a day. Continue diazepam twice daily. Consult Dr. Trinidad for cardiology evaluation and management due to PVCs. Consult Dr. Ruff for pulmonary evaluation and management. Consult Dr. Vidal for Neurology evaluation and management due to acute metabolic encephalopathy. Recheck labs this morning, BMP and magnesium. Discontinue Flexeril, the patient is already on tizanidine. The patient is on IV Rocephin and IV doxycycline. Prognosis of this patient is very poor. For details, please refer to the orders. Acute metabolic encephalopathy- improving Acute exacerbation of COPD- improving slowly Pneumonia- continue antibiotics. Anxiety and depression- does lot of issues including placement and she wants her dog to go with her at the assisted living or to her facility she chooses for long-term stay. This was discussed with the mental health social worker. Plan Plan For more details regarding further plans, please refer to the orders. REYNALDO ESPITIA MD Feb 13, 2019 11:13
--- NOTE | 2019-02-13 11:45 | PDOC ---
PULMONARY PROGRESS NOTES Subjective soa with minimal activity appears depressed/ crying Vitals Vital Signs Date Time Temp Pulse Resp B/P (MAP) Pulse Ox O2 Delivery O2 Flow Rate FiO2 02/13/19 11: 94 Nasal Cannula 2.0 02/13/19 10:52 98.2 96 18 122/69 (86) 98.2 General: Alert, No acute distress Lungs: Wheezing (faint) Cardiovascular: S1 Abdomen: Soft, Non-tender Neuro Exam: Alert Extremities: No Edema Skin: Warm Labs Laboratory Tests Test 02/11/19 13:57 02/12/19 10:10 02/13/19 04:00 Urine Opiates Screen Pos (NEG) Urine Methadone Screen Neg (NEG) Urine Barbiturates Neg (NEG) Urine Phencyclidine Screen Neg (NEG) Urine Amphetamine/Methamphetamine Neg (NEG) Urine Benzodiazepines Screen Pos (NEG) Urine Cocaine Screen Neg (NEG) Urine Cannabinoids Screen Neg (NEG) Urine Ethyl Alcohol Neg (NEG) Sodium Level 137 mmol/L (136-145) 142 mmol/L (136-145) Potassium Level 4.1 mmol/L (3.5-5.1) 3.9 mmol/L (3.5-5.1) Chloride Level 99 mmol/L (98-107) 103 mmol/L (98-107) Carbon Dioxide Level 33 mmol/L (21-32) 34 mmol/L (21-32) Anion Gap 5 (6-14) 5 (6-14) Blood Urea Nitrogen 14 mg/dL (7-20) 13 mg/dL (7-20) Creatinine 0.5 mg/dL (0.6-1.0) 0.5 mg/dL (0.6-1.0) Estimated GFR (Cockcroft-Gault) 126.7 126.7 Glucose Level 144 mg/dL (70-99) 77 mg/dL (70-99) Calcium Level 8.8 mg/dL (8.5-10.1) 8.4 mg/dL (8.5-10.1) Magnesium Level 2.0 mg/dL (1.8-2.4) White Blood Count 9.4 x10^3/uL (4.0-11.0) Red Blood Count 3.63 x10^6/uL (3.50-5.40) Hemoglobin 10.7 g/dL (12.0-15.5) Hematocrit 32.8 % (36.0-47.0) Mean Corpuscular Volume 90 fL (79-100) Mean Corpuscular Hemoglobin 30 pg (25-35) Mean Corpuscular Hemoglobin Concent 33 g/dL (31-37) Red Cell Distribution Width 15.7 % (11.5-14.5) Platelet Count 349 x10^3/uL (140-400) Neutrophils (%) (Auto) 65 % (31-73) Lymphocytes (%) (Auto) 26 % (24-48) Monocytes (%) (Auto) 8 % (0-9) Eosinophils (%) (Auto) 0 % (0-3) Basophils (%) (Auto) 1 % (0-3) Neutrophils # (Auto) 6.1 x10^3/uL (1.8-7.7) Lymphocytes # (Auto) 2.4 x10^3/uL (1.0-4.8) Monocytes # (Auto) 0.8 x10^3/uL (0.0-1.1) Eosinophils # (Auto) 0.0 x10^3/uL (0.0-0.7) Basophils # (Auto) 0.1 x10^3/uL (0.0-0.2) BUN/Creatinine Ratio 26 (6-20) Total Bilirubin 0.3 mg/dL (0.2-1.0) Aspartate Amino Transf (AST/SGOT) 16 U/L (15-37) Alanine Aminotransferase (ALT/SGPT) 14 U/L (14-59) Alkaline Phosphatase 51 U/L (46-116) Total Protein 6.3 g/dL (6.4-8.2) Albumin 2.9 g/dL (3.4-5.0) Albumin/Globulin Ratio 0.9 (1.0-1.7) Laboratory Tests Test 02/13/19 04:00 White Blood Count 9.4 x10^3/uL (4.0-11.0) Red Blood Count 3.63 x10^6/uL (3.50-5.40) Hemoglobin 10.7 g/dL (12.0-15.5) Hematocrit 32.8 % (36.0-47.0) Mean Corpuscular Volume 90 fL (79-100) Mean Corpuscular Hemoglobin 30 pg (25-35) Mean Corpuscular Hemoglobin Concent 33 g/dL (31-37) Red Cell Distribution Width 15.7 % (11.5-14.5) Platelet Count 349 x10^3/uL (140-400) Neutrophils (%) (Auto) 65 % (31-73) Lymphocytes (%) (Auto) 26 % (24-48) Monocytes (%) (Auto) 8 % (0-9) Eosinophils (%) (Auto) 0 % (0-3) Basophils (%) (Auto) 1 % (0-3) Neutrophils # (Auto) 6.1 x10^3/uL (1.8-7.7) Lymphocytes # (Auto) 2.4 x10^3/uL (1.0-4.8) Monocytes # (Auto) 0.8 x10^3/uL (0.0-1.1) Eosinophils # (Auto) 0.0 x10^3/uL (0.0-0.7) Basophils # (Auto) 0.1 x10^3/uL (0.0-0.2) Sodium Level 142 mmol/L (136-145) Potassium Level 3.9 mmol/L (3.5-5.1) Chloride Level 103 mmol/L (98-107) Carbon Dioxide Level 34 mmol/L (21-32) Anion Gap 5 (6-14) Blood Urea Nitrogen 13 mg/dL (7-20) Creatinine 0.5 mg/dL (0.6-1.0) Estimated GFR (Cockcroft-Gault) 126.7 BUN/Creatinine Ratio 26 (6-20) Glucose Level 77 mg/dL (70-99) Calcium Level 8.4 mg/dL (8.5-10.1) Total Bilirubin 0.3 mg/dL (0.2-1.0) Aspartate Amino Transf (AST/SGOT) 16 U/L (15-37) Alanine Aminotransferase (ALT/SGPT) 14 U/L (14-59) Alkaline Phosphatase 51 U/L (46-116) Total Protein 6.3 g/dL (6.4-8.2) Albumin 2.9 g/dL (3.4-5.0) Albumin/Globulin Ratio 0.9 (1.0-1.7) Medications Active Scripts Medications Dose Route/Sig Max Daily Dose Days Date Category Dose Instructions Prednisone (Prednisone) 10 Mg Tablet 10 Mg PO UD 01/02/19 Rx Take 3 tablets by mouth twice a day for 3 days, then take 2 tablets by mouth twice a day for 3 days, then take 1 tablet by mouth twice a day for 3 days, then take 1 tablet by mouth daily x 3 days, then stop. Cefdinir 300 Mg Capsule 1 Cap PO BID 01/02/19 Rx Wixela 500-50 Inhub (Fluticasone Propion/Salmeterol) 1 Each Blst.w.dev 1 Inh INH BID 12/31/18 Reported Proair Hfa (Albuterol Sulfate) 8.5 Gm Hfa.aer.ad 2 Puff PO QID 12/31/18 Reported Diazepam 5 Mg Tablet 1 Tab PO BID PRN 12/31/18 Reported Fluoxetine Hcl 40 Mg Capsule 1 Tab PO DAILY 12/31/18 Reported Tizanidine Hcl 4 Mg Tablet 1 Tab PO TID PRN 12/31/18 Reported Cetirizine Hcl 10 Mg Tablet 1 Tab PO HS 12/31/18 Reported Mirtazapine 7.5 Mg Tablet 1 Tab PO DAILY 12/31/18 Reported Ranitidine Hcl 150 Mg Tablet 150 Mg PO BID 12/31/18 Reported Hydrocodone-Acetamin 10-325 mg (Hydrocodone/Acetaminophen) 1 Each Tablet 1 Tab PO Q6HRS 12/31/18 Reported Fluticasone Propionate Nasal [place] (Fluticasone Propionate) 16 Gm [place].susp 1 Puff NS DAILY 12/31/18 Reported Gabapentin 600 Mg Tablet 600 Mg PO TID 12/31/18 Reported Baclofen 10 Mg Tablet 10 Mg PO TID PRN 12/31/18 Reported Comments cxr 02/11 lingular atelectasis Impression . 1. [id number] hypercapnic/ hypoxemic respiratory failure. 2. Abnormal chest x-ray revealing lingular opacity. 3. Possible pneumonia, suspect Gram-negative, possible Gram-positive. The patient has been in the hospital, near in the past 3 months. 4. Failed outpatient treatment for acute bronchitis and exacerbation of chronic obstructive pulmonary disease. 5. Anxiety. 6. Secondary pulmonary hypertension. 7. Tobacco dependence. Plan . 1. We will continue current medical regimen. 2. P.r.n. BiPAP. 3. The patient instructed on the importance of discontinuing tobacco use. 4. Nebulized treatments. 5. Antibiotics. I do appreciate the privilege in sharing in the patient's care. SON MATHIS MD Feb 13, 2019 11:45
[2019-02-13] MEDS: cefTRIAXone IV Push 1 GM VIAL. IVP SCH (13:19)
--- NOTE | 2019-02-13 14:12 | NUR ---
EDWIN consulted for social issues, placement. Chart reviewed and pt is a transfer from ICU. ICU SS reported she had talked to family but family denies speaking with anyone from Social Service department. Pt is known to [facility] from previous admission and had declined SNU or HH at that time. EDWIN spoke with pt, pt's cousin's , Abby and another cousin, Elsy via phone in pt's room. Pt very tearful and tells me she does not have anywhere to go. Pt had moved from [place] to [place] a couple months ago and has been living with her cousin. Pt is not able to live at her cousin due to not being compliant with house rules, still smokes, does not clean up room and appears to have significantly decline in ability to care for herself. Abby stated pt actually was 'peeing on her dog pads' because she was not able to ambulate and she does not want pt to come live with her anymore. Elsy states she has tried to get pt in to AL in [place] side but pt then decided to move to [place]. EDWIN extensively discussed SNU, LTC and AL, options, insurance coverage. EDWIN discussed about smoking and pt swears she will never smoke again. pt wants to go to SNU and is interested in AL placement. EDWIN discussed pt will have to sign up for HCBS waiver through her insurance to qualify for AL. Pt also 58 years old and Abby reports the places they had called had informed them they only take 60-62/65 or older. Pt agreeable to work with PT/OT to [facility] and EDWIN has provided family with list of SNU with medicare star ratings. Pt is notified that she is not able to take her dog to SNU or LTC. Pt very tearful again but understands having a place to stay will need to be her first concern with along side being able to care for herself independently. Her family informed her they will be able to care for the dog. EDWIN requested for PT/OT order. Anticipate pt will dc to SNU and hopefully transition to LTC and family is advised regarding HCBS waiver for AL placement. Discussed with Physician and RN. EDWIN will continue to follow.
[2019-02-13 15:11] VITALS: BP 127/58
--- NOTE | 2019-02-13 18:01 | PDOC2 ---
NEUROLOGY CONSULT Date of Admission Date of Admission DATE: 02/13/19 TIME: 17:52 Reason for Consult Reason for Consult: 02-12-19 IMPRESSION: Metabolic encephalopathy. Respiratory failure. COPD. HTN. Hypothyroidism. Smoking. Pacemaker. RECOMMENDATIONS/PLAN: Treat medical diseases. EEG, patient refused. Lab: see orders. OT/PT. HISTORY OF PRESENT ILLNESS This is a 58-year-old female patient who was brought to the ER of [facility] with complaints of shortness of breath and sinus congestion for the last couple fo weeks. Has been progressively worsening. Noted with PVC's on tele. Patient has known h/o of PVC's. She was noted mental status changes, decreased response, so neurology was requested for consultation on 02/12/19. PAST MEDICAL HISTORY Cardiovascular: Other (PVCs) Pulmonary: COPD Psych: Anxiety, Depression Musculoskeletal: Other (chronic pain) PAST SURGICAL HISTORY Hysterectomy FAMILY HISTORY Non contributory. SOCIAL HISTORY Smoke: <1 pack per day ALCOHOL: none Drugs: None ALLERGY: NKDA MEDICATIONS: Refer to MAR REVIEW OF SYSTEMS: Constitutional: No malnutrition, weight loss, cachexia. Head: No traumatic brain or head injury. Skin: No edema, or rash. Ear: No infection. Eyes: No vision loss or color blindness. Nose: No bleeding or purulent discharges. Hearing: No hearing decrease. Neck: No injury. Breast: No history of cancer, masses,or discharges. Cardiac: HTN. Pulmonary: COPD. GI: No GI ulcer, GI bleeding. Urinary/genital: UTI. Endocrinologic: Hypothyroidism. Skeletomuscular: Generalized weakness. Neurological: see HP. Psychiatric: Denies drug use/abuse. Otherwise, not [id number] review of systems. PHYSICAL EXAMINATION: General appearance is in subacute distress. HEENT: Normocephalic and nontraumatic. Eyes, nose, ears, and throat are unremarkable. Neck is supple. No lymphadenopathy. No crepitus. Cardiovascular: S1, S2, regular rate and rhythm. Pulmonary: Decreased to auscultation bilaterally. Abdomen: Bowel sounds are positive. Extremities: No rash, lesions, or edema. No restriction of range of motion NEUROLOGICAL EXAMINATION: Decreased response. Not oriented to time, place and person. PERRL. EOMI. CN: no focal findings. Muscle tone: within normal. Muscle strength: 4 DTR: 1-2 Plantar reflex: Neutral response bilaterally Gait: not examined in bed. Sensory exam: no abnormal findings. No cerebellar signs elicited. F-T-N test not performed due to not follow commands. Current Medications Current Medications Current Medications Albuterol/ Ipratropium (Duoneb) 3 ml 1X ONCE NEB Last administered on 02/11/19at 10:38; Start 02/11/19 at 10:30; Stop 02/11/19 at 10:31; Status DC Sodium Chloride 500 ml @ 500 mls/hr 1X ONCE IV Last administered on 02/11/19at 11:10; Start 02/11/19 at 10:30; Stop 02/11/19 at 11:29; Status DC Methylprednisolone Sodium Succinate (SOLU-Medrol 125MG VIAL) 125 mg 1X ONCE IV Last administered on 02/11/19at 11:54; Start 02/11/19 at 11:45; Stop 02/11/19 at 11:46; Status DC Albuterol/ Ipratropium (Duoneb) 3 ml RTQID NEB ; Start 02/11/19 at 18:00; Stop 02/11/19 at 14:18; Status DC Cetirizine HCl (ZyrTEC) 10 mg HS PO Last administered on 02/12/19 20:59; Start 02/11/19 at 21:00 Diazepam (Valium) 5 mg PRN BID PRN PO ANXIETY / AGITATION Last administered on 02/12/19at 21:00; Start 02/11/19 at 14:00 Fluticasone Propionate (Flonase) 1 spray DAILY NS Last administered on 02/13/19 08:58; Start 02/12/19 at 09:00 Acetaminophen/ Hydrocodone Bitart (Lortab 10/325) 1 tab PRN Q6HRS PRN PO MODERATE PAIN, SEVERE PAIN Last administered on 02/13/19 13:17; Start 02/11/19 at 15:00 Mirtazapine (Remeron) 7.5 mg QHS PO Last administered on 02/12/19at 20:59; Start 02/11/19 at 21:00 Tizanidine HCl (Zanaflex) 4 mg PRN TID PRN PO spasms 1ST CHOICE Last administered on 02/12/19 13:07; Start 02/11/19 at 14:00 Cyclobenzaprine HCl (Flexeril) 10 mg PRN Q8HRS PRN PO MUSCLE SPASMS 2ND CHOICE Last administered on 02/12/19 01:42; Start 02/11/19 at 14:30; Stop 02/12/19 at 09:29; Status DC Fluoxetine HCl (PROzac) 40 mg DAILY PO Last administered on 02/13/19 08:59; Start 02/12/19 at 09:00 Budesonide (Pulmicort) 0.5 mg RTBID NEB Last administered on 02/13/19 06:21; Start 02/11/19 at 20:00 Gabapentin (Neurontin) 600 mg TID PO Last administered on 02/13/19 13:18; Start 02/11/19 at 14:30 Famotidine (Pepcid) 20 mg BID PO Last administered on 02/13/19 08:59; Start 02/11/19 at 21:00 Methylprednisolone Sodium Succinate (SOLU-Medrol 40MG VIAL) 40 mg Q8HRS IV Last administered on 02/12/19 05:56; Start 02/11/19 at 14:00; Stop 02/12/19 at 09:29; Status DC Ceftriaxone Sodium (Rocephin) 1 gm Q24H IVP Last administered on 02/13/19 13:19; Start 02/11/19 at 14:30 Albuterol/ Ipratropium (Duoneb) 3 ml RTQID NEB Last administered on 02/13/19at 15:33; Start 02/11/19 at 16:00 Albuterol/ Ipratropium (Duoneb) 3 ml 1X ONCE NEB Last administered on 02/11/19at 13:25; Start 02/11/19 at 14:00; Stop 02/11/19 at 14:02; Status DC Sodium Chloride 1,000 ml @ 100 mls/hr Q10H IV Last administered on 02/13/19 06:16; Start 02/11/19 at 14:00 Doxycycline Hyclate 100 mg/ Dextrose 100 ml @ 50 mls/hr Q12HR IV Last administered on 02/13/19 09:01; Start 02/11/19 at 17:00 Acetaminophen (Tylenol) 650 mg PRN Q6HRS PRN PO MILD PAIN / TEMP; Start 02/12/19 at 09:15 Enoxaparin Sodium (Lovenox 40mg Syringe) 40 mg Q24H SQ Last administered on 02/13/19at 09:00; Start 02/12/19 at 10:00 Lactobacillus Rhamnosus (Culturelle) 1 cap BID PO Last administered on 02/13/19at 08:59; Start 02/12/19 at 21:00 Methylprednisolone Sodium Succinate (SOLU-Medrol 40MG VIAL) 40 mg DAILY08 IV Last administered on 02/13/19at 09:00; Start 02/13/19 at 08:00 Albuterol Sulfate (Ventolin Neb Soln) 2.5 mg PRN Q4HRS PRN NEB SHORTNESS OF BREATH; Start 02/13/19 at 06:15 Active Scripts Active Prednisone (Prednisone) 10 Mg Tablet 10 Mg PO UD Take 3 tablets by mouth twice a day for 3 days, then take 2 tablets by mouth twice a day for 3 days, then take 1 tablet by mouth twice a day for 3 days, then take 1 tablet by mouth daily x 3 days, then stop. Cefdinir 300 Mg Capsule 1 Cap PO BID Reported Wixela 500-50 Inhub (Fluticasone Propion/Salmeterol) 1 Each Blst.w.dev 1 Inh INH BID Proair Hfa (Albuterol Sulfate) 8.5 Gm Hfa.aer.ad 2 Puff PO QID Diazepam 5 Mg Tablet 1 Tab PO BID PRN Fluoxetine Hcl 40 Mg Capsule 1 Tab PO DAILY Tizanidine Hcl 4 Mg Tablet 1 Tab PO TID PRN Cetirizine Hcl 10 Mg Tablet 1 Tab PO HS Mirtazapine 7.5 Mg Tablet 1 Tab PO DAILY Ranitidine Hcl 150 Mg Tablet 150 Mg PO BID Hydrocodone-Acetamin 10-325 mg (Hydrocodone/Acetaminophen) 1 Each Tablet 1 Tab PO Q6HRS Fluticasone Propionate Nasal [place] (Fluticasone Propionate) 16 Gm [place].susp 1 Puff NS DAILY Gabapentin 600 Mg Tablet 600 Mg PO TID Baclofen 10 Mg Tablet 10 Mg PO TID PRN Allergies Allergies: Allergies Coded Allergies Type Severity Reaction Last Updated Verified No Known Drug Allergies 12/31/18 No ROS Review of System The patient denies any associated fevers, chills, headache, ear pain, rhinorrhea, sore throat, stiff neck, productive cough, chest pain, shortness of breath, back or flank pain, abdominal pain, nausea, vomiting, diarrhea, constipation, dysuria, rash, numbness, weakness, tingling, incontinence, difficulty ambulating, or diaphoresis. Physical Exam Physical Exam General: Well developed, well nourished, no acute distress, well appearing HEENT: Pupils equally round and reactive to light, EOMI, no discharge, normal conjunctiva Neck: Supple, no nuchal rigidity, no JVD, trachea midline, no tenderness Cardiac: RRR, no murmurs, no gallops, no rubs Chest/Lungs: CTAB, no wheeze, no rhonchi, no crackles Abdomen: soft, non-distended, no guarding, no peritoneal signs, non-tender Back: No tenderness Extremities: no edema, pulses intact, non-tender,capillary refill <3 sec bilateral upper and lower extremities, Neuro: Alert and oriented x 4, no focal deficits, normal speech Vitals Vitals: Vital Signs Date Time Temp Pulse Resp B/P (MAP) Pulse Ox O2 Delivery O2 Flow Rate FiO2 02/13/19 15:33 94 Nasal Cannula 2.0 02/13/19 15:11 99.1 89 20 127/58 (81) 99.1 Labs Labs Laboratory Tests Test 02/12/19 10:10 02/13/19 04:00 Sodium Level 137 mmol/L (136-145) 142 mmol/L (136-145) Potassium Level 4.1 mmol/L (3.5-5.1) 3.9 mmol/L (3.5-5.1) Chloride Level 99 mmol/L (98-107) 103 mmol/L (98-107) Carbon Dioxide Level 33 mmol/L (21-32) 34 mmol/L (21-32) Anion Gap 5 (6-14) 5 (6-14) Blood Urea Nitrogen 14 mg/dL (7-20) 13 mg/dL (7-20) Creatinine 0.5 mg/dL (0.6-1.0) 0.5 mg/dL (0.6-1.0) Estimated GFR (Cockcroft-Gault) 126.7 126.7 Glucose Level 144 mg/dL (70-99) 77 mg/dL (70-99) Calcium Level 8.8 mg/dL (8.5-10.1) 8.4 mg/dL (8.5-10.1) Magnesium Level 2.0 mg/dL (1.8-2.4) White Blood Count 9.4 x10^3/uL (4.0-11.0) Red Blood Count 3.63 x10^6/uL (3.50-5.40) Hemoglobin 10.7 g/dL (12.0-15.5) Hematocrit 32.8 % (36.0-47.0) Mean Corpuscular Volume 90 fL (79-100) Mean Corpuscular Hemoglobin 30 pg (25-35) Mean Corpuscular Hemoglobin Concent 33 g/dL (31-37) Red Cell Distribution Width 15.7 % (11.5-14.5) Platelet Count 349 x10^3/uL (140-400) Neutrophils (%) (Auto) 65 % (31-73) Lymphocytes (%) (Auto) 26 % (24-48) Monocytes (%) (Auto) 8 % (0-9) Eosinophils (%) (Auto) 0 % (0-3) Basophils (%) (Auto) 1 % (0-3) Neutrophils # (Auto) 6.1 x10^3/uL (1.8-7.7) Lymphocytes # (Auto) 2.4 x10^3/uL (1.0-4.8) Monocytes # (Auto) 0.8 x10^3/uL (0.0-1.1) Eosinophils # (Auto) 0.0 x10^3/uL (0.0-0.7) Basophils # (Auto) 0.1 x10^3/uL (0.0-0.2) BUN/Creatinine Ratio 26 (6-20) Total Bilirubin 0.3 mg/dL (0.2-1.0) Aspartate Amino Transf (AST/SGOT) 16 U/L (15-37) Alanine Aminotransferase (ALT/SGPT) 14 U/L (14-59) Alkaline Phosphatase 51 U/L (46-116) Total Protein 6.3 g/dL (6.4-8.2) Albumin 2.9 g/dL (3.4-5.0) Albumin/Globulin Ratio 0.9 (1.0-1.7) Laboratory Tests Test 02/13/19 04:00 White Blood Count 9.4 x10^3/uL (4.0-11.0) Red Blood Count 3.63 x10^6/uL (3.50-5.40) Hemoglobin 10.7 g/dL (12.0-15.5) Hematocrit 32.8 % (36.0-47.0) Mean Corpuscular Volume 90 fL (79-100) Mean Corpuscular Hemoglobin 30 pg (25-35) Mean Corpuscular Hemoglobin Concent 33 g/dL (31-37) Red Cell Distribution Width 15.7 % (11.5-14.5) Platelet Count 349 x10^3/uL (140-400) Neutrophils (%) (Auto) 65 % (31-73) Lymphocytes (%) (Auto) 26 % (24-48) Monocytes (%) (Auto) 8 % (0-9) Eosinophils (%) (Auto) 0 % (0-3) Basophils (%) (Auto) 1 % (0-3) Neutrophils # (Auto) 6.1 x10^3/uL (1.8-7.7) Lymphocytes # (Auto) 2.4 x10^3/uL (1.0-4.8) Monocytes # (Auto) 0.8 x10^3/uL (0.0-1.1) Eosinophils # (Auto) 0.0 x10^3/uL (0.0-0.7) Basophils # (Auto) 0.1 x10^3/uL (0.0-0.2) Sodium Level 142 mmol/L (136-145) Potassium Level 3.9 mmol/L (3.5-5.1) Chloride Level 103 mmol/L (98-107) Carbon Dioxide Level 34 mmol/L (21-32) Anion Gap 5 (6-14) Blood Urea Nitrogen 13 mg/dL (7-20) Creatinine 0.5 mg/dL (0.6-1.0) Estimated GFR (Cockcroft-Gault) 126.7 BUN/Creatinine Ratio 26 (6-20) Glucose Level 77 mg/dL (70-99) Calcium Level 8.4 mg/dL (8.5-10.1) Total Bilirubin 0.3 mg/dL (0.2-1.0) Aspartate Amino Transf (AST/SGOT) 16 U/L (15-37) Alanine Aminotransferase (ALT/SGPT) 14 U/L (14-59) Alkaline Phosphatase 51 U/L (46-116) Total Protein 6.3 g/dL (6.4-8.2) Albumin 2.9 g/dL (3.4-5.0) Albumin/Globulin Ratio 0.9 (1.0-1.7) CANDIDA BARCENAS MD Feb 13, 2019 18:01
--- NOTE | 2019-02-13 18:04 | PDOC ---
PROGRESS NOTES Assessment Assessment Metabolic encephalopathy. Respiratory failure. COPD. HTN. Hypothyroidism. Smoking. Abnormal TSH and T4 results. Pacemaker. RECOMMENDATIONS/PLAN: Treat medical diseases. EEG, patient refused. OT/PT. HISTORY OF PRESENT ILLNESS This is a 58-year-old female patient who was brought to the ER of [facility] with complaints of shortness of breath and sinus congestion for the last couple fo weeks. Has been progressively worsening. Noted with PVC's on tele. Patient has known h/o of PVC's. She was noted mental status changes, decreased response, so neurology was requested for consultation on 02/12/19. PAST MEDICAL HISTORY Cardiovascular: Other (PVCs) Pulmonary: COPD Psych: Anxiety, Depression Musculoskeletal: Other (chronic pain) PAST SURGICAL HISTORY Hysterectomy FAMILY HISTORY Non contributory. SOCIAL HISTORY Smoke: <1 pack per day ALCOHOL: none Drugs: None ALLERGY: NKDA MEDICATIONS: Refer to MAR REVIEW OF SYSTEMS: Constitutional: No malnutrition, weight loss, cachexia. Head: No traumatic brain or head injury. Skin: No edema, or rash. Ear: No infection. Eyes: No vision loss or color blindness. Nose: No bleeding or purulent discharges. Hearing: No hearing decrease. Neck: No injury. Breast: No history of cancer, masses,or discharges. Cardiac: HTN. Pulmonary: COPD. GI: No GI ulcer, GI bleeding. Urinary/genital: UTI. Endocrinologic: Hypothyroidism. Skeletomuscular: Generalized weakness. Neurological: see HP. Psychiatric: Denies drug use/abuse. Otherwise, not [id number] review of systems. PHYSICAL EXAMINATION: General appearance is in subacute distress. HEENT: Normocephalic and nontraumatic. Eyes, nose, ears, and throat are unremarkable. Neck is supple. No lymphadenopathy. No crepitus. Cardiovascular: S1, S2, regular rate and rhythm. Pulmonary: Decreased to auscultation bilaterally. Abdomen: Bowel sounds are positive. Extremities: No rash, lesions, or edema. No restriction of range of motion NEUROLOGICAL EXAMINATION: More alert. Not fully oriented to time, place but knew person. PERRL. EOMI. CN: no focal findings. Muscle tone: within normal. Muscle strength: 4 DTR: 1-2 Plantar reflex: Neutral response bilaterally Gait: not examined in bed. Sensory exam: no abnormal findings. No cerebellar signs elicited. Objective Objective Vital Signs Date Time Temp Pulse Resp B/P (MAP) Pulse Ox O2 Delivery O2 Flow Rate FiO2 02/13/19 15:33 94 Nasal Cannula 2.0 02/13/19 15:11 99.1 89 20 127/58 (81) 99.1 Intake and Output 02/13/19 07:00 Intake Total 2000 ml Balance 2000 ml Intake Oral 800 ml Other 1200 ml # Voids 8 # Bowel Movements 1 Vitals Signs Vitals VS - Last 72 Hours, by Label Date Time Temp Pulse Resp B/P (MAP) Pulse Ox O2 Delivery O2 Flow Rate FiO2 02/13/19 15:33 94 Nasal Cannula 2.0 02/13/19 15:11 99.1 89 20 127/58 (81) 93 Nasal Cannula 2.0 99.1 02/13/19 13:17 20 94 Nasal Cannula 2.0 02/13/19 11:19 94 Nasal Cannula 2.0 02/13/19 10:52 98.2 96 18 122/69 (86) 95 Nasal Cannula 2.0 98.2 02/13/19 08:00 Nasal Cannula 3.0 02/13/19 07:16 20 96 Nasal Cannula 3.0 02/13/19 07:15 97.2 77 18 120/70 (87) 96 Nasal Cannula 2.0 97.2 02/13/19 06:21 94 Nasal Cannula 2.0 02/13/19 06:16 16 Nasal Cannula 2.0 02/13/19 02:40 98.3 89 20 159/85 (109) 93 Nasal Cannula 2.0 98.3 02/12/19 23:10 98.1 80 16 153/57 (89) 93 Nasal Cannula 2.0 98.1 02/12/19 20:14 16 96 Nasal Cannula 2.0 02/12/19 20:00 Nasal Cannula 3.0 02/12/19 19:52 96 Nasal Cannula 2.0 02/12/19 19:45 97.7 81 20 114/61 (78) 94 Nasal Cannula 2.0 97.7 02/12/19 19:14 Nasal Cannula 2.0 02/12/19 16:03 96 Nasal Cannula 2.0 02/12/19 15:00 85 18 100 Nasal Cannula 2.0 02/12/19 13:06 96 Nasal Cannula 2.0 02/12/19 12:17 96 Nasal Cannula 2.0 02/12/19 11:00 85 18 135/61 (85) 100 Nasal Cannula 2.0 02/12/19 08:47 97 Nasal Cannula 2.0 02/12/19 08:20 97 Nasal Cannula 2.0 02/12/19 08:00 Nasal Cannula 3.0 02/12/19 07:47 95 Nasal Cannula 2.0 02/12/19 07:00 98.0 100 24 156/71 (99) 100 Nasal Cannula 2.0 98.0 Laboratory Laboratory Laboratory Tests Test 02/13/19 04:00 White Blood Count 9.4 x10^3/uL (4.0-11.0) Red Blood Count 3.63 x10^6/uL (3.50-5.40) Hemoglobin 10.7 g/dL (12.0-15.5) Hematocrit 32.8 % (36.0-47.0) Mean Corpuscular Volume 90 fL (79-100) Mean Corpuscular Hemoglobin 30 pg (25-35) Mean Corpuscular Hemoglobin Concent 33 g/dL (31-37) Red Cell Distribution Width 15.7 % (11.5-14.5) Platelet Count 349 x10^3/uL (140-400) Neutrophils (%) (Auto) 65 % (31-73) Lymphocytes (%) (Auto) 26 % (24-48) Monocytes (%) (Auto) 8 % (0-9) Eosinophils (%) (Auto) 0 % (0-3) Basophils (%) (Auto) 1 % (0-3) Neutrophils # (Auto) 6.1 x10^3/uL (1.8-7.7) Lymphocytes # (Auto) 2.4 x10^3/uL (1.0-4.8) Monocytes # (Auto) 0.8 x10^3/uL (0.0-1.1) Eosinophils # (Auto) 0.0 x10^3/uL (0.0-0.7) Basophils # (Auto) 0.1 x10^3/uL (0.0-0.2) Sodium Level 142 mmol/L (136-145) Potassium Level 3.9 mmol/L (3.5-5.1) Chloride Level 103 mmol/L (98-107) Carbon Dioxide Level 34 mmol/L (21-32) Anion Gap 5 (6-14) Blood Urea Nitrogen 13 mg/dL (7-20) Creatinine 0.5 mg/dL (0.6-1.0) Estimated GFR (Cockcroft-Gault) 126.7 BUN/Creatinine Ratio 26 (6-20) Glucose Level 77 mg/dL (70-99) Calcium Level 8.4 mg/dL (8.5-10.1) Total Bilirubin 0.3 mg/dL (0.2-1.0) Aspartate Amino Transf (AST/SGOT) 16 U/L (15-37) Alanine Aminotransferase (ALT/SGPT) 14 U/L (14-59) Alkaline Phosphatase 51 U/L (46-116) Total Protein 6.3 g/dL (6.4-8.2) Albumin 2.9 g/dL (3.4-5.0) Albumin/Globulin Ratio 0.9 (1.0-1.7) Medication Medications Current Medications Albuterol Sulfate (Ventolin Neb Soln) 2.5 mg PRN Q4HRS PRN NEB SHORTNESS OF BREATH; Start 02/13/19 at 06:15 Lactobacillus Rhamnosus (Culturelle) 1 cap BID PO Last administered on 02/13/19at 08:59; Start 02/12/19 at 21:00 Methylprednisolone Sodium Succinate (SOLU-Medrol 40MG VIAL) 40 mg DAILY08 IV Last administered on 02/13/19at 09:00; Start 02/13/19 at 08:00 Comment Review of Relevant I have reviewed the following items toño (where applicable) has been applied. CANDIDA BARCENAS MD Feb 13, 2019 18:03
[2019-02-13 19:30] VITALS: BP 125/64
[2019-02-13] MEDS: MIRTAZAPINE 7.5 MG TABLET. PO SCH (20:36)
[2019-02-13] MEDS: CETIRIZINE HCL 10 MG TABLET. PO SCH (20:36)
[2019-02-13 23:41] VITALS: BP 151/82
[2019-02-14] MEDS: HYDROcodone/APAP 10/325 1 TAB TABLET PO PRN ×3 (03:03→15:51)
[2019-02-14 03:48] VITALS: BP 129/75
[2019-02-14 05:24] LABS: CALCIUM 8.2 mg/dL (8.5-10.1); CREATININE 0.6 mg/dL (0.6-1.0); GFR 102.7; POTASSIUM 3.6 mmol/L (3.5-5.1)
[2019-02-14] MEDS: IV NORMAL SALINE 1000ML BAG 1,000 ML IV SCH ×2 (05:45→12:00)
[2019-02-14] MEDS: IPRATRPIUM/ALBUTEROL 0.5/2.5MG 3 ML NEBU. NEB SCH ×3 (06:00→16:15)
[2019-02-14] MEDS: BUDESONIDE 0.5 MG/2 ML NEBU. NEB SCH (06:00)
[2019-02-14] MEDS: diazePAM 5 MG TABLET PO PRN (06:14)
[2019-02-14 07:15] VITALS: BP 140/88
[2019-02-14] MEDS ORDERED: POTASSIUM CHLORIDE 20 MEQ TABLET.ER. PO ONE (08:30)
[2019-02-14] MEDS ORDERED: LACT1CAP19 PO (09:07)
[2019-02-14] MEDS ORDERED: IPRA3AMP29 NEB (09:07)
--- NOTE | 2019-02-14 09:10 | SNU/HH DC ---
DISCHARGE ORDERS DISCHARGE INFORMATION: CONDITION ON DISCHARGE: Stable CORRECTION: SNF STAY <30 DAYS: Yes POST DISCHARGE ORDERS: ACTIVITY ORDERS: Activity as tolerated (with front wheeled walker) DIET AFTER DISCHARGE: Cardiac FOLLOW-UP: PHYSICIAN FOLLOW-UP: In 5 days LAB ORDERS FOR FOLLOW-UP: CBC,CMP in AM and weekly on Tuesday Additional Instructions: Fall precautions TREATMENT/EQUIPMENT ORDERS: RESPIRATORY EQUIPMENT NEEDED: Oxygen (2 lit/min) Physical Therapy For: Evalulation/Treatment Occupational Therapy For: Evaluation/Treatment DISCHARGE MEDICATIONS: Home Meds Active Scripts Prednisone (PREDNISONE ) 10 Mg Tablet, 10 MG PO UD for PREDNISONE TAPER, #40 TAB 0 Refills Take 3 tablets by mouth twice a day for 3 days, then take 2 tablets by mouth twice a day for 3 days, then take 1 tablet by mouth twice a day for 3 days, then take 1 tablet by mouth daily x 3 days, then stop. Prov:REYNALDO ESPITIA MD 01/02/19 Cefdinir (CEFDINIR) 300 Mg Capsule, 1 CAP PO BID for bronchitis, #10 CAP Prov:REYNALDO ESPITIA MD 01/02/19 Reported Medications Fluticasone Propion/Salmeterol (Wixela 500-50 Inhub) 1 Each Blst.w.dev, 1 INH INH BID for soa 12/31/18 Albuterol Sulfate (Proair Hfa) 8.5 Gm Hfa.aer.ad, 2 PUFF PO QID for soa 12/31/18 Diazepam (DIAZEPAM) 5 Mg Tablet, 1 TAB PO BID PRN for ANXIETY / AGITATION 12/31/18 Fluoxetine Hcl (FLUOXETINE HCL) 40 Mg Capsule, 1 TAB PO DAILY for depression 12/31/18 Tizanidine Hcl (TIZANIDINE HCL) 4 Mg Tablet, 1 TAB PO TID PRN for spasms 12/31/18 Cetirizine Hcl (CETIRIZINE HCL) 10 Mg Tablet, 1 TAB PO HS for allergies 12/31/18 Mirtazapine (MIRTAZAPINE) 7.5 Mg Tablet, 1 TAB PO DAILY for depression 12/31/18 Ranitidine Hcl (RANITIDINE HCL) 150 Mg Tablet, 150 MG PO BID for stomach 12/31/18 Hydrocodone/Acetaminophen (Hydrocodone-Acetamin 10-325 mg) 1 Each Tablet, 1 TAB PO Q6HRS for pain 12/31/18 Fluticasone Propionate (FLUTICASONE PROPIONATE NASAL SPRAY) 16 Gm [place].susp, 1 PUFF NS DAILY for allergies 12/31/18 Gabapentin (GABAPENTIN) 600 Mg Tablet, 600 MG PO TID for pain 12/31/18 Baclofen (BACLOFEN) 10 Mg Tablet, 10 MG PO TID PRN for spasm 12/31/18 REYNALDO ESPITIA MD Feb 14, 2019 09:10
--- NOTE | 2019-02-14 09:18 | PDOC3 ---
IM DISCHARGE SUMMARY Date of Admission Date of Admission Date of Admission: Feb 11, 2019 at 13:56 Date of Discharge Date of Discharge 02/14/19 Primary Diagnosis Primary Diagnosis 1. Acute exacerbation of chronic obstructive pulmonary disease. 2. Acute on chronic hypoxic and hypercapnic respiratory failure. 3. Diastolic congestive heart failure. 4. Anemia. 5. Pneumonia, possibly gram-negative as well as possible gram-positive pneumonia. 6. Anxiety. 7. Acute metabolic encephalopathy. 8. Paranoia. 9. Depression. 10. Chronic pain syndrome. 11. History of neck surgery and right hip surgery. Consults Consults Josse Trinidad MD; Benji Vidal MD; Mio Ruff MD Labs Labs Laboratory Tests Test 02/14/19 03:20 Sodium Level 143 mmol/L (136-145) Potassium Level 3.6 mmol/L (3.5-5.1) Chloride Level 105 mmol/L (98-107) Carbon Dioxide Level 32 mmol/L (21-32) Anion Gap 6 (6-14) Blood Urea Nitrogen 13 mg/dL (7-20) Creatinine 0.6 mg/dL (0.6-1.0) Estimated GFR (Cockcroft-Gault) 102.7 Glucose Level 77 mg/dL (70-99) Calcium Level 8.2 mg/dL (8.5-10.1) L Laboratory Tests 02/14/19 03:20 Brief hospital course Brief hospital course This 58-year-old old female was being treated as outpatient for acute bronchitis and exacerbation of COPD and sinusitis. She also started smoking and continued to get worse and because of that, she was brought to the Emergency Room by the paramedics and admitted for acute exacerbation of COPD. ABG revealed pH of 7.35, pCO2 of 72 and pO2 of 60 on 2 liters. Chest x-ray showed lingular band-like density in the left lung, which could be infiltrate versus atelectasis. Her WBC count was 8.6, hemoglobin 11.3. Sodium 141, potassium 4.5, BUN 13, creatinine 0.6. BNP 827. Troponin less than 0.027. Urine drug screen positive for opiates and benzodiazepines. ABG as noted earlier. Monitor shows multiple PVCs. Because of acute exacerbation of chronic obstructive pulmonary disease and possible pneumonia, the patient was admitted for further evaluation and management. For more details regarding the past history, family history, social history, surgical history and other details, please refer to History and Physical. The patient has been very anxious and paranoid. I will decrease Solu-Medrol to 40 mg IV once a day. Continue diazepam twice daily. Consult Dr. Trinidad for cardiology evaluation and management due to PVCs. Consult Dr. Ruff for pulmonary evaluation and management. Consult Dr. Vidal for Neurology evaluation and management due to acute metabolic encephalopathy. Recheck labs this morning, BMP and magnesium. Discontinue Flexeril, the patient is already on tizanidine. The patient is on IV Rocephin and IV doxycycline. Prognosis of this patient is very poor. For details, please refer to the orders. Acute metabolic encephalopathy- improving Acute exacerbation of COPD- improving slowly Pneumonia- continue antibiotics. Anxiety and depression- does lot of issues including placement and she wants her dog to go with her at the assisted living or to her facility she chooses for long-term stay. This was discussed with the licensed clinical social worker. Weakness- will need PT for 2 weeks in SNF and walker. Discharge on Cefdinir 300 mg bid for 5 days. ,Prednisone- 10 mg 3 daily for 3 days,2 daily for 3 days,1 daily for 3 days. Medications Medications reviewed and reconciled for discharge. Allergy Allergies Coded Allergies Type Severity Reaction Last Updated Verified No Known Drug Allergies 12/31/18 No Follow up in 5 days. DISPOSITION: Longterm facility Comments Discharge Management - 35 minutes. For other details please refer to discharge instructions REYNALDO ESPITIA MD Feb 14, 2019 09:18
[2019-02-14] MEDS: methylPREDNISolone SOD SUCC PF 40 MG/ML VIAL. IV SCH (09:36)
[2019-02-14] MEDS: FLUTICASONE 50MCG/NASAL SPRAY 16GM BOTTLE. NS SCH (09:36)
[2019-02-14] MEDS: FAMOTIDINE 20 MG TABLET. PO SCH (09:37)
[2019-02-14] MEDS: GABAPENTIN 300 MG CAPSULE. PO SCH ×2 (09:38→14:51)
[2019-02-14] MEDS: LACTOBACILLUS RHAMNOSUS GG 1 CAPSULE. PO SCH (09:38)
[2019-02-14] MEDS: FLUoxetine HCL 20 MG CAPSULE PO SCH (09:38)
[2019-02-14] MEDS: DOXYCYCLINE HYCLATE 100 MG in IV DEXTROSE 5% 100ML 100 ML IV SCH (09:40)
[2019-02-14] MEDS: ENOXAPARIN 40 MG/0.4 ML SYRINGE. SQ SCH (10:00)
--- NOTE | 2019-02-14 10:22 | PDOC ---
PULMONARY PROGRESS NOTES Subjective soa better Vitals Vital Signs Date Time Temp Pulse Resp B/P (MAP) Pulse Ox O2 Delivery O2 Flow Rate FiO2 02/14/19 09:37 96 Nasal Cannula 2.0 02/14/19 07:15 97.3 78 20 140/88 (105) 97.3 General: Alert, No acute distress Lungs: Wheezing (improved) Cardiovascular: S1 Abdomen: Soft, Non-tender Neuro Exam: Alert Extremities: No Edema Skin: Warm Labs Laboratory Tests Test 02/13/19 04:00 02/14/19 03:20 White Blood Count 9.4 x10^3/uL (4.0-11.0) Red Blood Count 3.63 x10^6/uL (3.50-5.40) Hemoglobin 10.7 g/dL (12.0-15.5) Hematocrit 32.8 % (36.0-47.0) Mean Corpuscular Volume 90 fL (79-100) Mean Corpuscular Hemoglobin 30 pg (25-35) Mean Corpuscular Hemoglobin Concent 33 g/dL (31-37) Red Cell Distribution Width 15.7 % (11.5-14.5) Platelet Count 349 x10^3/uL (140-400) Neutrophils (%) (Auto) 65 % (31-73) Lymphocytes (%) (Auto) 26 % (24-48) Monocytes (%) (Auto) 8 % (0-9) Eosinophils (%) (Auto) 0 % (0-3) Basophils (%) (Auto) 1 % (0-3) Neutrophils # (Auto) 6.1 x10^3/uL (1.8-7.7) Lymphocytes # (Auto) 2.4 x10^3/uL (1.0-4.8) Monocytes # (Auto) 0.8 x10^3/uL (0.0-1.1) Eosinophils # (Auto) 0.0 x10^3/uL (0.0-0.7) Basophils # (Auto) 0.1 x10^3/uL (0.0-0.2) Sodium Level 142 mmol/L (136-145) 143 mmol/L (136-145) Potassium Level 3.9 mmol/L (3.5-5.1) 3.6 mmol/L (3.5-5.1) Chloride Level 103 mmol/L (98-107) 105 mmol/L (98-107) Carbon Dioxide Level 34 mmol/L (21-32) 32 mmol/L (21-32) Anion Gap 5 (6-14) 6 (6-14) Blood Urea Nitrogen 13 mg/dL (7-20) 13 mg/dL (7-20) Creatinine 0.5 mg/dL (0.6-1.0) 0.6 mg/dL (0.6-1.0) Estimated GFR (Cockcroft-Gault) 126.7 102.7 BUN/Creatinine Ratio 26 (6-20) Glucose Level 77 mg/dL (70-99) 77 mg/dL (70-99) Calcium Level 8.4 mg/dL (8.5-10.1) 8.2 mg/dL (8.5-10.1) Total Bilirubin 0.3 mg/dL (0.2-1.0) Aspartate Amino Transf (AST/SGOT) 16 U/L (15-37) Alanine Aminotransferase (ALT/SGPT) 14 U/L (14-59) Alkaline Phosphatase 51 U/L (46-116) Total Protein 6.3 g/dL (6.4-8.2) Albumin 2.9 g/dL (3.4-5.0) Albumin/Globulin Ratio 0.9 (1.0-1.7) Laboratory Tests Test 02/14/19 03:20 Sodium Level 143 mmol/L (136-145) Potassium Level 3.6 mmol/L (3.5-5.1) Chloride Level 105 mmol/L (98-107) Carbon Dioxide Level 32 mmol/L (21-32) Anion Gap 6 (6-14) Blood Urea Nitrogen 13 mg/dL (7-20) Creatinine 0.6 mg/dL (0.6-1.0) Estimated GFR (Cockcroft-Gault) 102.7 Glucose Level 77 mg/dL (70-99) Calcium Level 8.2 mg/dL (8.5-10.1) Medications Active Scripts Medications Dose Route/Sig Max Daily Dose Days Date Category Dose Instructions Prednisone (Prednisone) 10 Mg Tablet 10 Mg PO UD 01/02/19 Rx Take 3 tablets by mouth twice a day for 3 days, then take 2 tablets by mouth twice a day for 3 days, then take 1 tablet by mouth twice a day for 3 days, then take 1 tablet by mouth daily x 3 days, then stop. Cefdinir 300 Mg Capsule 1 Cap PO BID 01/02/19 Rx Wixela 500-50 Inhub (Fluticasone Propion/Salmeterol) 1 Each Blst.w.dev 1 Inh INH BID 12/31/18 Reported Proair Hfa (Albuterol Sulfate) 8.5 Gm Hfa.aer.ad 2 Puff PO QID 12/31/18 Reported Diazepam 5 Mg Tablet 1 Tab PO BID PRN 12/31/18 Reported Fluoxetine Hcl 40 Mg Capsule 1 Tab PO DAILY 12/31/18 Reported Tizanidine Hcl 4 Mg Tablet 1 Tab PO TID PRN 12/31/18 Reported Cetirizine Hcl 10 Mg Tablet 1 Tab PO HS 12/31/18 Reported Mirtazapine 7.5 Mg Tablet 1 Tab PO DAILY 12/31/18 Reported Ranitidine Hcl 150 Mg Tablet 150 Mg PO BID 12/31/18 Reported Hydrocodone-Acetamin 10-325 mg (Hydrocodone/Acetaminophen) 1 Each Tablet 1 Tab PO Q6HRS 12/31/18 Reported Fluticasone Propionate Nasal [place] (Fluticasone Propionate) 16 Gm [place].susp 1 Puff NS DAILY 12/31/18 Reported Gabapentin 600 Mg Tablet 600 Mg PO TID 12/31/18 Reported Baclofen 10 Mg Tablet 10 Mg PO TID PRN 12/31/18 Reported Comments cxr 02/11 lingular atelectasis Impression . 1. [id number] hypercapnic/ hypoxemic respiratory failure. 2. Abnormal chest x-ray revealing lingular opacity. 3. Possible pneumonia, suspect Gram-negative, possible Gram-positive. 4. Failed outpatient treatment for acute bronchitis and exacerbation of chronic obstructive pulmonary disease. 5. Anxiety. 6. Secondary pulmonary hypertension. 7. Tobacco dependence. Plan . 1. We will continue current medical regimen. 2. P.r.n. BiPAP. 3. The patient instructed on the importance of discontinuing tobacco use. 4. Nebulized treatments. 5. Antibiotics. ok with dc to [facility] d/w SON LOUIE MD Feb 14, 2019 10:22
[2019-02-14 11:08] VITALS: BP 125/83
--- NOTE | 2019-02-14 12:21 | NUR ---
SW phoned and faxed referral to [facility] and [facility]. Acceptance pending. EDWIN will continue to follow.
[2019-02-14] MEDS: tiZANidine 4 MG TABLET. PO PRN (13:00)
[2019-02-14] MEDS: cefTRIAXone IV Push 1 GM VIAL. IVP SCH (14:51)
[2019-02-14 15:10] VITALS: BP 119/81
--- NOTE | 2019-02-14 15:46 | PDOC ---
PROGRESS NOTES Assessment Assessment Metabolic encephalopathy. Respiratory failure. COPD. HTN. Hypothyroidism. Smoking. Abnormal TSH and T4 results. Pacemaker. RECOMMENDATIONS/PLAN: Treat medical diseases. OT/PT. FU with PCP. HISTORY OF PRESENT ILLNESS This is a 58-year-old female patient who was brought to the ER of [facility] with complaints of shortness of breath and sinus congestion for the last couple fo weeks. Has been progressively worsening. Noted with PVC's on tele. Patient has known h/o of PVC's. She was noted mental status changes, decreased response, so neurology was requested for consultation on 02/12/19. 02/14/19: Mental status changes improved. PAST MEDICAL HISTORY Cardiovascular: Other (PVCs) Pulmonary: COPD Psych: Anxiety, Depression Musculoskeletal: Other (chronic pain) PAST SURGICAL HISTORY Hysterectomy FAMILY HISTORY Non contributory. SOCIAL HISTORY Smoke: <1 pack per day ALCOHOL: none Drugs: None ALLERGY: NKDA MEDICATIONS: Refer to MAR REVIEW OF SYSTEMS: Constitutional: No malnutrition, weight loss, cachexia. Head: No traumatic brain or head injury. Skin: No edema, or rash. Ear: No infection. Eyes: No vision loss or color blindness. Nose: No bleeding or purulent discharges. Hearing: No hearing decrease. Neck: No injury. Breast: No history of cancer, masses,or discharges. Cardiac: HTN. Pulmonary: COPD. GI: No GI ulcer, GI bleeding. Urinary/genital: UTI. Endocrinologic: Hypothyroidism. Skeletomuscular: Generalized weakness. Neurological: see HP. Psychiatric: Denies drug use/abuse. Otherwise, not [id number] review of systems. PHYSICAL EXAMINATION: General appearance is in subacute distress. HEENT: Normocephalic and nontraumatic. Eyes, nose, ears, and throat are unremarkable. Neck is supple. No lymphadenopathy. No crepitus. Cardiovascular: S1, S2, regular rate and rhythm. Pulmonary: Decreased to auscultation bilaterally. Abdomen: Bowel sounds are positive. Extremities: No rash, lesions, or edema. No restriction of range of motion NEUROLOGICAL EXAMINATION: Awake. Oriented to time, place and person. PERRL. EOMI. CN: no focal findings. Muscle tone: within normal. Muscle strength: 4+ DTR: 2 Plantar reflex: Neutral response bilaterally Gait: Able to walk. Sensory exam: no abnormal findings. No cerebellar signs elicited. Objective Objective Vital Signs Date Time Temp Pulse Resp B/P (MAP) Pulse Ox O2 Delivery O2 Flow Rate FiO2 02/14/19 15:10 98.2 80 18 119/81 (94) 96 Nasal Cannula 2.0 98.2 Intake and Output 02/14/19 07:00 Intake Total 930 ml Balance 930 ml Intake Oral 930 ml # Voids 4 Vitals Signs Vitals VS - Last 72 Hours, by Label Date Time Temp Pulse Resp B/P (MAP) Pulse Ox O2 Delivery O2 Flow Rate FiO2 02/14/19 15:10 98.2 80 18 119/81 (94) 96 Nasal Cannula 2.0 98.2 02/14/19 12:15 94 Nasal Cannula 2.0 02/14/19 11:08 98.7 83 18 125/83 (97) 95 Nasal Cannula 2.0 98.7 02/14/19 10:37 95 Nasal Cannula 2.0 02/14/19 09:37 96 Nasal Cannula 2.0 02/14/19 08:00 Nasal Cannula 2.0 02/14/19 07:15 97.3 78 20 140/88 (105) 96 Nasal Cannula 2.0 97.3 02/14/19 06:01 Nasal Cannula 2.0 02/14/19 04:05 17 93 Nasal Cannula 2.0 02/14/19 03:48 97.8 79 18 129/75 (93) 93 Nasal Cannula 2.0 97.8 02/14/19 03:03 17 92 Nasal Cannula 2.0 02/13/19 23:41 97.7 83 18 151/82 (105) 92 Nasal Cannula 2.0 97.7 02/13/19 21:44 16 96 Nasal Cannula 2.0 02/13/19 20:42 96 Nasal Cannula 2.0 02/13/19 20:38 17 94 Nasal Cannula 2.0 02/13/19 19:30 97.9 88 18 125/64 (84) 96 Nasal Cannula 2.0 97.9 02/13/19 19:30 Nasal Cannula 2.0 02/13/19 15:33 94 Nasal Cannula 2.0 02/13/19 15:11 99.1 89 20 127/58 (81) 93 Nasal Cannula 2.0 99.1 02/13/19 14:17 20 94 Nasal Cannula 2.0 02/13/19 13:17 20 94 Nasal Cannula 2.0 02/13/19 11:19 94 Nasal Cannula 2.0 02/13/19 10:52 98.2 96 18 122/69 (86) 95 Nasal Cannula 2.0 98.2 02/13/19 08:00 Nasal Cannula 3.0 02/13/19 07:16 20 96 Nasal Cannula 3.0 02/13/19 07:15 97.2 77 18 120/70 (87) 96 Nasal Cannula 2.0 97.2 Laboratory Laboratory Laboratory Tests Test 02/14/19 03:20 Sodium Level 143 mmol/L (136-145) Potassium Level 3.6 mmol/L (3.5-5.1) Chloride Level 105 mmol/L (98-107) Carbon Dioxide Level 32 mmol/L (21-32) Anion Gap 6 (6-14) Blood Urea Nitrogen 13 mg/dL (7-20) Creatinine 0.6 mg/dL (0.6-1.0) Estimated GFR (Cockcroft-Gault) 102.7 Glucose Level 77 mg/dL (70-99) Calcium Level 8.2 mg/dL (8.5-10.1) Medication Medications Current Medications Potassium Chloride (Klor-Con) 20 meq 1X ONCE PO Last administered on 02/14/19at 09:39; Start 02/14/19 at 08:30; Stop 02/14/19 at 08:32; Status DC Comment Review of Relevant I have reviewed the following items toño (where applicable) has been applied. CANDIDA BARCENAS MD Feb 14, 2019 15:46
--- NOTE | 2019-02-14 16:25 | NUR ---
SW following pt. 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 SW spoke with pt and pt's daughter in law, Elsy, and Elsy chose [facility]. Pt also agreeable. Pt will be picked up at 1700. 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 Pt aware she is not able to smoke at facility. Pt denies other needs at this time.
--- NOTE | 2019-02-14 17:52 | NUR ---
pt discharged to [facility] via their transportation. IV removed cath intact. pt on 2L NC. stable upon DC. meds reviewed w/ pt. report called to PHANI Ahmadi @ [facility]..
== END 2019-02-14 17:45 | DRG 177 ==
LOC: ER 10:15 → 1 WEST ICU 11:00 → OBSVTOIN 13:56 → 6 SOUTH 02-12 17:20
PROVIDERS: ADMIT Internal Medicine; ATTEND Internal Medicine
DX: J15.6 Pneumonia due to other Gram-negative bacteria (principal); J96.21 Acute and chronic respiratory failure with hypoxia; G93.41 Metabolic encephalopathy; J96.22 Acute and chronic respiratory failure with hypercapnia; J44.1 Chronic obstructive pulmonary disease with (acute) exacerbation; I50.32 Chronic diastolic (congestive) heart failure; J44.0 Chronic obstructive pulmonary disease with (acute) lower respiratory infection; J15.9 Unspecified bacterial pneumonia; D64.9 Anemia, unspecified; E03.9 Hypothyroidism, unspecified; E05.90 Thyrotoxicosis, unspecified without thyrotoxic crisis or storm; F17.210 Nicotine dependence, cigarettes, uncomplicated; F22 Delusional disorders; F32.9 Major depressive disorder, single episode, unspecified; F41.9 Anxiety disorder, unspecified; G89.4 Chronic pain syndrome; I11.0 Hypertensive heart disease with heart failure; I27.29 Other secondary pulmonary hypertension; I49.3 Ventricular premature depolarization; J20.9 Acute bronchitis, unspecified; J98.4 Other disorders of lung; Z82.49 Family history of ischemic heart disease and other diseases of the circulatory system; Z90.710 Acquired absence of both cervix and uterus; Z99.81 Dependence on supplemental oxygen
CPT/HCPCS: 36415; 36600; 71046; 80048; 80053; 80307; 82607; 82805; 83735; 83880; 84484; 85025; 87070; 87205; 93005; 94640; 94760; 96361; 96374; G0378; G0379; J0696; J1650; J2920; J2930; J3490; J7030; J7040; J7620; J7626; 97110; 97116; 97530; 97535; 99285-25

== ENCOUNTER 2019-06-11 15:30 | Emergency (ER) | payer MEDICARE, OTHER ==
[~2019-06-11] VITALS: Ht 157.5 cm; Wt 65.9 kg
[~2019-06-11 15:30] MED LIST changes: +HYDR-2767 PO; -HYDR-52 PO; +IPRA3AMP29 NEB; +LACT1CAP19 PO
[2019-06-11] MEDS ORDERED: IPRATRPIUM/ALBUTEROL 0.5/2.5MG 3 ML NEBU. NEB ONE (15:45)
--- NOTE | 2019-06-11 15:55 | PHYS DOC ---
Past Medical History Past Medical History: Anxiety, COPD Additional Past Medical Histor: chronic neck pain (ISABELLA KAM) Past Surgical History: Hysterectomy, Tonsillectomy Additional Past Surgical Histo: NECK (ISABELLA KAM) Smoking Status: Current Every Day Smoker Alcohol Use: Rarely Drug Use: None (ISABELLA KAM) Adult General Chief Complaint Chief Complaint: SHORTNESS OF BREATH HPI HPI Patient is a 59 year old F who is brought to the ER today for shortness of breath and reports of fever. She has known COPD and does unfortunately still smoke cigarettes. Pt did call EMS yesterday and EMS reports they did arrive and evaluate her and then she declined transport to ER. Today she called again and wanted to come in. Pt denies sore throat or congestion. She has felt feverish at home. Pt is noted to be incontinent of urine and stool on arrival and tells us that this is not unusual for her. She wears depends because of problems with this. She is alert and oriented at time of exam. (ISABELLA KAM) Review of Systems Review of Systems Constitutional: Reports subjective fever. HENT: Denies nasal congestion or sore throat. Respiratory: Reports cough and SOB Cardiovascular: Denies chest pain GI: Denies abdominal pain, nausea, vomiting, bloody stools or diarrhea Musculoskeletal: Denies back pain or joint pain Integument: Denies rash or skin lesions Neurologic: Denies headache, focal weakness or sensory changes All other systems were reviewed and found to be within normal limits, except as documented in this note. (ISABELLA KAM) Current Medications Current Medications Current Medications Medications (Trade) Dose Ordered Sig/Jorge Luis Start Time Stop Time Status Last Admin Dose Admin Acetaminophen/ Hydrocodone Bitart (Lortab 10/325) 1 tab 1X ONCE 06/11/19 18:00 06/11/19 18:01 DC 06/11/19 18:26 1 TAB Albuterol/ Ipratropium (Duoneb) 3 ml 1X ONCE 06/11/19 15:45 06/11/19 15:46 DC 06/11/19 15:51 3 ML Ceftriaxone Sodium (Rocephin) 1 gm 1X ONCE 06/11/19 18:00 3/9/20 18:01 DC 06/11/19 18:25 1 GM (ISAI AGUIRRE DO) Allergies Allergies Allergies Coded Allergies Type Severity Reaction Last Updated Verified No Known Drug Allergies 12/31/18 No (ISAI AGUIRRE DO) Physical Exam Physical Exam Constitutional: Well developed, well nourished, no acute distress, non-toxic appearance. HENT: Normocephalic, atraumatic, bilateral external ears normal, oropharynx moist, no oral exudates, nose normal. Eyes: PERRLA, EOMI, conjunctiva normal, no discharge. Neck: Normal range of motion, no tenderness, supple, no stridor. Cardiovascular:Heart rate regular rhythm, no murmur Lungs & Thorax: Decreased breath sounds, scattered mild wheezes, no respiratory distress noted. Talking in full sentences. Abdomen: Bowel sounds normal, soft, no tenderness, no masses, no pulsatile masses. Skin: Warm, dry, no erythema, no rash. Back: No tenderness, no CVA tenderness. Extremities: No tenderness, no cyanosis, no clubbing, ROM intact, no edema. Neurologic: Alert and oriented X 3, normal motor function, normal sensory function, no focal deficits noted. Psychologic: Affect normal, judgement normal, mood normal. (ISABELLA KAM) Current Patient Data Vital Signs Vital Signs Date Time Temp Pulse Resp B/P (MAP) Pulse Ox O2 Delivery O2 Flow Rate FiO2 06/11/19 18:10 90 139/81 (100) 97 Nasal Cannula 2.0 06/11/19 15:50 98.9 24 98.9 (ISAI AGUIRRE DO) Lab Values Laboratory Tests Test 06/11/19 15:50 06/11/19 15:55 06/11/19 17:00 White Blood Count 8.7 x10^3/uL (4.0-11.0) Red Blood Count 4.27 x10^6/uL (3.50-5.40) Hemoglobin 12.0 g/dL (12.0-15.5) Hematocrit 38.0 % (36.0-47.0) Mean Corpuscular Volume 89 fL (79-100) Mean Corpuscular Hemoglobin 28 pg (25-35) Mean Corpuscular Hemoglobin Concent 32 g/dL (31-37) Red Cell Distribution Width 13.8 % (11.5-14.5) Platelet Count 365 x10^3/uL (140-400) Neutrophils (%) (Auto) 72 % (31-73) Lymphocytes (%) (Auto) 18 % (24-48) L Monocytes (%) (Auto) 8 % (0-9) Eosinophils (%) (Auto) 1 % (0-3) Basophils (%) (Auto) 1 % (0-3) Neutrophils # (Auto) 6.3 x10^3/uL (1.8-7.7) Lymphocytes # (Auto) 1.6 x10^3/uL (1.0-4.8) Monocytes # (Auto) 0.7 x10^3/uL (0.0-1.1) Eosinophils # (Auto) 0.1 x10^3/uL (0.0-0.7) Basophils # (Auto) 0.1 x10^3/uL (0.0-0.2) Sodium Level 138 mmol/L (136-145) Potassium Level 3.7 mmol/L (3.5-5.1) Chloride Level 98 mmol/L (98-107) Carbon Dioxide Level 38 mmol/L (21-32) H Anion Gap 2 (6-14) L Blood Urea Nitrogen 5 mg/dL (7-20) L Creatinine 0.5 mg/dL (0.6-1.0) L Estimated GFR (Cockcroft-Gault) 126.3 BUN/Creatinine Ratio 10 (6-20) Glucose Level 130 mg/dL (70-99) H Calcium Level 9.4 mg/dL (8.5-10.1) Total Bilirubin 0.6 mg/dL (0.2-1.0) Aspartate Amino Transferase (AST) 29 U/L (15-37) Alanine Aminotransferase (ALT) 22 U/L (14-59) Alkaline Phosphatase 67 U/L (46-116) Creatine Kinase 323 U/L (26-192) H Creatine Kinase MB (Mass) 2.1 ng/mL (0.0-3.6) Creatine Kinase MB Relative Index 0.7 % (0-4) Troponin I Quantitative < 0.017 ng/mL (0.000-0.055) OE-Pwi-E-Type Natriuretic Peptide 632 pg/mL (0-124) H Total Protein 7.3 g/dL (6.4-8.2) Albumin 3.5 g/dL (3.4-5.0) Albumin/Globulin Ratio 0.9 (1.0-1.7) L Lactic Acid Level 0.8 mmol/L (0.4-2.0) Influenza Type A Antigen Negative (NEGATIVE) Influenza Type B Antigen Negative (NEGATIVE) Urine Collection Type U cath Urine Color Yellow Urine Clarity Cloudy Urine pH 7.5 (<5.0-8.0) Urine Specific [place] 1.020 (1.000-1.030) Urine Protein 30 mg/dL (NEG-TRACE) Urine Glucose (UA) Negative mg/dL (NEG) Urine Ketones (Stick) >=80 mg/dL (NEG) Urine Blood Negative (NEG) Urine Nitrite Negative (NEG) Urine Bilirubin Small (NEG) Urine Urobilinogen Dipstick 1.0 mg/dL (0.2 mg/dL) Urine Leukocyte Esterase Negative (NEG) Urine RBC 0 /HPF (0-2) Urine WBC 0 /HPF (0-4) Urine Squamous Epithelial Cells Few /LPF Urine Amorphous Sediment Present /HPF Urine Bacteria 0 /HPF (0-FEW) Urine Mucus Mod /LPF Laboratory Tests 06/11/19 15:50 Laboratory Tests 06/11/19 15:50 (ISAI AGUIRRE DO) Lab Values Laboratory Tests Test 06/11/19 15:50 06/11/19 15:55 06/11/19 17:00 White Blood Count 8.7 x10^3/uL (4.0-11.0) Red Blood Count 4.27 x10^6/uL (3.50-5.40) Hemoglobin 12.0 g/dL (12.0-15.5) Hematocrit 38.0 % (36.0-47.0) Mean Corpuscular Volume 89 fL (79-100) Mean Corpuscular Hemoglobin 28 pg (25-35) Mean Corpuscular Hemoglobin Concent 32 g/dL (31-37) Red Cell Distribution Width 13.8 % (11.5-14.5) Platelet Count 365 x10^3/uL (140-400) Neutrophils (%) (Auto) 72 % (31-73) Lymphocytes (%) (Auto) 18 % (24-48) L Monocytes (%) (Auto) 8 % (0-9) Eosinophils (%) (Auto) 1 % (0-3) Basophils (%) (Auto) 1 % (0-3) Neutrophils # (Auto) 6.3 x10^3/uL (1.8-7.7) Lymphocytes # (Auto) 1.6 x10^3/uL (1.0-4.8) Monocytes # (Auto) 0.7 x10^3/uL (0.0-1.1) Eosinophils # (Auto) 0.1 x10^3/uL (0.0-0.7) Basophils # (Auto) 0.1 x10^3/uL (0.0-0.2) Sodium Level 138 mmol/L (136-145) Potassium Level 3.7 mmol/L (3.5-5.1) Chloride Level 98 mmol/L (98-107) Carbon Dioxide Level 38 mmol/L (21-32) H Anion Gap 2 (6-14) L Blood Urea Nitrogen 5 mg/dL (7-20) L Creatinine 0.5 mg/dL (0.6-1.0) L Estimated GFR (Cockcroft-Gault) 126.3 BUN/Creatinine Ratio 10 (6-20) Glucose Level 130 mg/dL (70-99) H Calcium Level 9.4 mg/dL (8.5-10.1) Total Bilirubin 0.6 mg/dL (0.2-1.0) Aspartate Amino Transferase (AST) 29 U/L (15-37) Alanine Aminotransferase (ALT) 22 U/L (14-59) Alkaline Phosphatase 67 U/L (46-116) Creatine Kinase 323 U/L (26-192) H Creatine Kinase MB (Mass) 2.1 ng/mL (0.0-3.6) Creatine Kinase MB Relative Index 0.7 % (0-4) Troponin I Quantitative < 0.017 ng/mL (0.000-0.055) BM-Ipu-D-Type Natriuretic Peptide 632 pg/mL (0-124) H Total Protein 7.3 g/dL (6.4-8.2) Albumin 3.5 g/dL (3.4-5.0) Albumin/Globulin Ratio 0.9 (1.0-1.7) L Lactic Acid Level 0.8 mmol/L (0.4-2.0) Influenza Type A Antigen Negative (NEGATIVE) Influenza Type B Antigen Negative (NEGATIVE) Urine Collection Type U cath Urine Color Yellow Urine Clarity Cloudy Urine pH 7.5 (<5.0-8.0) Urine Specific [place] 1.020 (1.000-1.030) Urine Protein 30 mg/dL (NEG-TRACE) Urine Glucose (UA) Negative mg/dL (NEG) Urine Ketones (Stick) >=80 mg/dL (NEG) Urine Blood Negative (NEG) Urine Nitrite Negative (NEG) Urine Bilirubin Small (NEG) Urine Urobilinogen Dipstick 1.0 mg/dL (0.2 mg/dL) Urine Leukocyte Esterase Negative (NEG) Urine RBC 0 /HPF (0-2) Urine WBC 0 /HPF (0-4) Urine Squamous Epithelial Cells Few /LPF Urine Amorphous Sediment Present /HPF Urine Bacteria 0 /HPF (0-FEW) Urine Mucus Mod /LPF Laboratory Tests 06/11/19 15:50 Laboratory Tests 06/11/19 15:50 (ISABELLA KAM) EKG EKG NSR, pulse 99 bpm, no STEMI, reviewed by Dr. Aguirre (ISABELLA KAM) Radiology/Procedures Radiology/Procedures CXR: neg (ISABELLA KAM) Course & Med Decision Making Course & Med Decision Making PT"s serum CO2 elevated but in review of her prior labs, it is baseline. She is breathing easier after her neb treatment and vitals and tests all reassuring. She does have chills, sinus pressure and cough. Will treat with her underlying COPD but did discuss with her that this could be and is likely viral in nature. Pt to f/u with PCP and return with any worsening symptoms. (ISABELLA KAM) Dragon Disclaimer Dragon Disclaimer This electronic medical record was generated, in whole or in part, using a voice recognition dictation system. (ISABELLA KAM) Departure Departure Impression: Primary Impression: Sinusitis Additional Impressions: Bronchitis COPD exacerbation Disposition: HOME, SELF-CARE Condition: IMPROVED Referrals: REYNALDO ESPITIA MD (PCP) Patient Instructions: Acute Bronchitis, [id number]-[id number], Sinusitis, [id number] Additional Instructions: Pt encouraged to use her nebulizer every 4-6 hours as needed and to follow up closely with her PCP. Pt to return with any worsening symptoms. Scripts Albuterol Sulfate (ALBUTEROL SULFATE NEB SOLN) 2.5 Mg/3 Ml Vial.neb 1 VIAL NEB PRN Q4HRS, #50 VIAL Prov: ISABELLA KAM 06/11/19 Prednisone (PREDNISONE) 20 Mg Tablet 1 TAB PO BID, #10 TAB Prov: ISABELLA KAM 06/11/19 Azithromycin (AZITHROMYCIN TABLET) 250 Mg Tablet 1 PKG PO UD for 5 Days, #6 TAB 0 Refills 2 the first day followed by 1 for days 2-5 Prov: ISABELLA KAM 06/11/19 Attending Signature Attending Signature I have reviewed the PA/REGISTRATION REPRESENTATIVE's note and plan of care. I was available for consultation as needed during the patient's visit in the emergency department. I agree with the clinical impression, plan, and disposition. (ISAI AGUIRRE DO) Problem Qualifiers ISABELLA KAM Jun 11, 2019 15:55 ISAI AGUIRRE DO Jun 11, 2019 20:44
[2019-06-11 16:09] LABS: BASO # 0.1 x10^3/uL (0.0-0.2); BASO % 1 % (0-3); EOS # 0.1 x10^3/uL (0.0-0.7); EOS % 1 % (0-3); LYMPH # 1.6 x10^3/uL (1.0-4.8); LYMPH % 18 % (24-48); MEAN CORPUSCULAR HEMOGLOBIN 28 pg (25-35); MEAN CORPUSCULAR HGB CONC 32 g/dL (31-37); MEAN CORPUSCULAR VOLUME 89 fL (79-100); MONO # 0.7 x10^3/uL (0.0-1.1); MONO % 8 % (0-9); NEUT # 6.3 x10^3/uL (1.8-7.7); NEUT % 72 % (31-73); PLATELET COUNT 365 x10^3/uL (140-400); RED BLOOD COUNT 4.27 x10^6/uL (3.50-5.40); RED CELL DISTRIBUTION WIDTH 13.8 % (11.5-14.5); WHITE BLOOD COUNT 8.7 x10^3/uL (4.0-11.0)
--- NOTE | 2019-06-11 16:14 | RAD ---
EXAM: Chest, single view. HISTORY: Cough. Shortness of breath. COMPARISON: 02/11/2019 FINDINGS: A frontal view of the chest is obtained. There is no infiltrate, pleural effusion or pneumothorax. The heart is normal in size. There is emphysema. IMPRESSION: No acute pulmonary finding. Electronically signed by: Mariluz Madrigal MD (06/11/2019 4:11 PM) [id number]
[2019-06-11 16:37] LABS: CALCIUM 9.4 mg/dL (8.5-10.1); CREATININE 0.5 mg/dL (0.6-1.0); GFR 126.3; POTASSIUM 3.7 mmol/L (3.5-5.1)
[2019-06-11 16:42] LABS: ALBUMIN 3.5 g/dL (3.4-5.0); ALBUMIN/GLOBULIN RATIO 0.9 (1.0-1.7); TOTAL BILIRUBIN 0.6 mg/dL (0.2-1.0); TOTAL PROTEIN 7.3 g/dL (6.4-8.2)
[2019-06-11 17:13] LABS: BILIRUBIN,URINE SMALL (NEG); CLARITY,URINE CLOUDY; COLOR,URINE YELLOW; NITRITE,URINE NEGATIVE (NEG); PH,URINE 7.5 (<5.0-8.0); PROTEIN,URINE 30 mg/dL (NEG-TRACE)
[2019-06-11 17:17] LABS: INFLUENZA A PATIENT NEGATIVE (NEGATIVE); INFLUENZA B PATIENT NEGATIVE (NEGATIVE)
[2019-06-11 17:22] LABS: SQUAMOUS EPITHELIAL CELL,UR FEW /LPF
[2019-06-11 17:23] LABS: AMORPHOUS SEDIMENT,UR PRESENT /HPF; BACTERIA,URINE 0 /HPF (0-FEW); RBC,URINE 0 /HPF (0-2); WBC,URINE 0 /HPF (0-4)
[2019-06-11] MEDS ORDERED: cefTRIAXone IV Push 1 GM VIAL. IVP ONE (18:00)
[2019-06-11] MEDS ORDERED: HYDROcodone/APAP 10/325 1 TAB TABLET PO ONE (18:00)
[2019-06-11] MEDS ORDERED: ALBU2.5V5 NEB (18:02)
[2019-06-11] MEDS ORDERED: AZIT250T6 PO (18:02)
[2019-06-11] MEDS ORDERED: PRED20TA PO (18:02)
[2019-06-11 18:10] VITALS: BP 139/81
--- NOTE | 2019-06-11 18:23 | EKG ---
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
== END 2019-06-11 18:40 | disposition home or self-care (01) ==
LOC: ER 15:30
DX: J32.9 Chronic sinusitis, unspecified (principal); J44.1 Chronic obstructive pulmonary disease with (acute) exacerbation; G89.29 Other chronic pain; F17.210 Nicotine dependence, cigarettes, uncomplicated; Z90.89 Acquired absence of other organs
CPT/HCPCS: 36415; 71045; 80053; 81001; 82553; 83605; 83880; 84484; 85025; 87804; 93005; 94640; 96374; 99285; J0696

== ENCOUNTER → 2019-12-28 | Outpatient (CLI) | payer OTHER ==
[~2019-12-28] MED LIST changes: +ALBU2.5V5 NEB; +PRED20TA PO
--- NOTE | 2019-12-28 12:40 | KCIC ---
CT CHEST WO CONTRAST INDICATION: Reason: COPD, SOA, on O2, smoker 40 yrs. / Spl. Instructions: / History: . COMPARISON STUDY: 12/18/2018. TECHNIQUE: Unenhanced axial images were obtained through the lungs and upper abdomen. Coronal and sagittal multiplanar reconstructions were also obtained. PQRS compliance statement: One or more of the following individualized dose reduction techniques were utilized for this examination: 1. Automated exposure control 2. Adjustment of the mA and/or kV according to patient size 3. Use of iterative reconstruction technique FINDINGS: Lungs and Airways: No pulmonary mass or consolidation. Centrilobular emphysema. Normal central airways. Pleura: The pleural spaces are normal. Heart and Mediastinum: The visualized thyroid gland is normal in size and attenuation. No axillary or supraclavicular lymphadenopathy. No mediastinal, hilar or retrocrural lymphadenopathy. Normal cardiac size. Coronary artery atherosclerotic disease. Atherosclerosis of the thoracic aorta. Abdomen: The visualized abdominal organs demonstrate no abnormality. Bones and Soft Tissues: Degenerative changes of the spine. Unchanged chronic height loss at T7. IMPRESSION: 1. No pulmonary mass or consolidation. No thoracic lymphadenopathy. 2. Emphysema. 3. Coronary artery atherosclerotic disease. Electronically signed by: Gagan Collins MD (12/28/2019 12:37 PM) [facility]ITALAlban
== END | disposition home or self-care (01) ==
LOC: KCIC CT 09:42
PROVIDERS: ATTEND Internal Medicine Pulmonary Disease
DX: J43.2 Centrilobular emphysema (principal); I25.10 Atherosclerotic heart disease of native coronary artery without angina pectoris; I70.0 Atherosclerosis of aorta; F17.200 Nicotine dependence, unspecified, uncomplicated
CPT/HCPCS: 71250

== ENCOUNTER → 2020-11-07 | Outpatient (CLI) | payer OTHER ==
--- NOTE | 2020-11-07 13:28 | KCIC ---
EXAM: Chest, 2 views. HISTORY: Emphysema. COMPARISON: None. FINDINGS: 2 views of chest are obtained. There is right perihilar and bilateral infrahilar linear ate lectasis or scarring superimposed on emphysema. There is no consolidation, pleural effusion or pneumo thorax. The heart is normal in size. IMPRESSION: Right perihilar and bilateral infrahilar linear atelectasis or scarring superimposed on e mphysema. Electronically signed by: Mariluz Madrigal MD (11/07/2020 1:26 PM) [id number]
== END ==
LOC: KCIC 12:46
PROVIDERS: ATTEND Nurse Practitioner Family
DX: J43.9 Emphysema, unspecified (principal); Z87.891 Personal history of nicotine dependence
CPT/HCPCS: 71046